=== PATIENT | male | born 1935 | race Caucasian/White ===

== ENCOUNTER → 2017-05-09 | Outpatient (CLI) | payer OTHER ==
[~2017-05-09] MED LIST: APIX1TAB3 PO; ATOR10TA82 PO; CETI10TA84 PO; CHOL100010 PO; CZR50 PO; FLUT27.5 NAE; IBUP-1105 PO; LUTE10TA PO; MULT-506 PO; OMEP10CA2 PO; TPRSR/25 PO; TRAV0.00 OP; URX/10 PO
[2017-05-09 12:25] LABS: CHOLESTEROL/HDL RATIO 1.5
== END | disposition home or self-care (01) ==
LOC: C.LAB1850 10:16
PROVIDERS: ATTEND Internal Medicine Cardiovascular Disease
DX: E78.5 Hyperlipidemia, unspecified (principal)

== ENCOUNTER → 2017-05-23 | Outpatient (CLI) | payer OTHER ==
[~2017-05-23] MED LIST changes: -ATOR10TA82 PO; +ATOR10TA88 PO
--- NOTE | 2017-05-23 08:50 | DIAGNOSTIC IMAGING REPORT ---
ULTRASOUND ABDOMEN COMPLETE CLINICAL HISTORY: Generalized abdominal pain. COMPARISON STUDY: Abdominal CT dated 06/29/2016. TECHNIQUE: Real-time, grayscale, and color flow sonography of the abdomen was performed. Images are reviewed in the transverse and longitudinal planes. FINDINGS: Liver: The liver is normal in size and demonstrates heterogeneously increased echotexture consistent with hepatic steatosis. There is no intrahepatic biliary ductal dilatation. The main portal vein is patent. Gallbladder: Small gallstones are identified. The gallbladder is otherwise normal in appearance. There is no gallbladder wall thickening or pericholecystic fluid. A sonographic Weathers's sign is reportedly absent. The common bile duct measures up to 0.3 cm in diameter. Pancreas: Visualized portions of the pancreatic head and body are normal in appearance. Spleen: The spleen is normal in size and echotexture, measuring 11.4 cm in length. Kidneys: The kidneys demonstrate cortical atrophy. There is no hydronephrosis. The right kidney measures 10.9 cm in length and the left kidney measures 10.6 cm in length. No shadowing calculi are identified. Abdominal vasculature: Visualized portions of the abdominal aorta and IVC are normal in appearance. Ascites: None. IMPRESSION: 1. No acute sonographic abnormality is identified. 2. Cholelithiasis without sonographic evidence of acute cholecystitis. 3. Hepatic steatosis. Electronically signed by: Carlos Pandya M.D. 05/23/2017 8:48 AM Dictated Date/Time: 05/23/2017 8:46 AM
== END | disposition home or self-care (01) ==
LOC: C.ULTR 08:12
PROVIDERS: ATTEND Internal Medicine Gastroenterology
DX: R10.13 Epigastric pain (principal); R19.4 Change in bowel habit; K80.20 Calculus of gallbladder without cholecystitis without obstruction; K76.0 Fatty (change of) liver, not elsewhere classified

== ENCOUNTER → 2018-07-02 | Outpatient (CLI) | payer OTHER ==
[~2018-07-02] MED LIST changes: +ATOR10TA82 PO; -ATOR10TA88 PO
[2018-07-02 12:54] LABS: BASO % 0.2 %; BASO ABS # 0.01 K/uL (0-0.2); EOS % 3.1 %; EOS ABS # 0.16 K/uL (0-0.5); HEMATOCRIT 38.7 % (42-52); HEMOGLOBIN 13.4 g/dL (14.0-18.0); LYMPH % 43.9 %; LYMPH ABS # 2.27 K/uL (1.2-3.4); MEAN CELL VOLUME 94.2 fL (80-100); MEAN CORPUSCULAR HEMOGLOBIN 32.6 pg (25-34); MEAN CORPUSCULAR HGB CONC 34.6 g/dl (32-36); MEAN PLATELET VOLUME 10.4 fL (7.4-10.4); MONO % 9.7 %; NEUT % 43.1 %; NEUT ABS # 2.23 K/uL (1.4-6.5); PLATELET COUNT 172 K/uL (130-400); RED CELL DISTRIBUTION WIDTH CV 12.8 % (11.5-14.5); RED CELL DISTRIBUTION WIDTH SD 43.7 fL (36.4-46.3); WHITE BLOOD COUNT 5.17 K/uL (4.8-10.8)
[2018-07-02 13:40] LABS: ALKALINE PHOSPHATASE 74 U/L (45-117); ALT/SGPT 47 U/L (12-78); AST/SGOT 36 U/L (15-37); BLOOD UREA NITROGEN 11 mg/dl (7-18); CALCIUM 8.6 mg/dl (8.5-10.1); CARBON DIOXIDE 28 mmol/L (21-32); CHOLESTEROL 141 mg/dl (0-200); CREATININE 0.82 mg/dl (0.60-1.40); GLUCOSE 91 mg/dl (70-99); LDL CHOLESTEROL CALCULATED 49 mg/dl; POTASSIUM 4.2 mmol/L (3.5-5.1); SODIUM 134 mmol/L (136-145); TOTAL PROTEIN 6.8 gm/dl (6.4-8.2)
== END | disposition home or self-care (01) ==
LOC: C.LABBC 09:42
PROVIDERS: ATTEND Internal Medicine
DX: I10 Essential (primary) hypertension (principal); E78.5 Hyperlipidemia, unspecified; D64.9 Anemia, unspecified; I48.0 Paroxysmal atrial fibrillation; Z79.01 Long term (current) use of anticoagulants; H35.3290 Exudative age-related macular degeneration, unspecified eye, stage unspecified

== ENCOUNTER 2019-11-04 10:07 | Inpatient (IN) ==
[2019-11-04] MEDS: SODIUM CHLORIDE 0.9% 1000ML 1,000 ML IV SCH ×3 (11:21→19:00)
[2019-11-04 11:25] LABS: Basophils # (auto) 0.01 K/uL (0-0.2); Basophils % (auto) 0.2 %; Eosinophils # (auto) 0.21 K/uL (0-0.5); Eosinophils % (auto) 4.1 %; Hematocrit (blood only) 33.4 % (42-52); Hemoglobin 12.2 g/dL (14.0-18.0); Immature Granulocytes # (auto) 0.04 K/uL (0.00-0.02); Immature Granulocytes % (auto) 0.8 %; Lymphocytes # (auto) 1.09 K/uL (1.2-3.4); Lymphocytes % (auto) 21.5 %; Mean Corpuscular Hemoglobin 34.2 pg (25-34); Mean Corpuscular Hgb Conc 36.5 g/dL (32-36); Mean Corpuscular Volume 93.6 fL (80-100); Mean Platelet Volume 8.1 fL (7.4-10.4); Monocytes # (auto) 0.64 K/uL (0.11-0.59); Monocytes % (auto) 12.6 %; Neutrophils # (auto) 3.09 K/uL (1.4-6.5); Neutrophils % (auto) 60.8 %; Platelet Count 223 K/uL (130-400); RDW Standard Deviation 44.2 fL (36.4-46.3); Red Blood Count 3.57 M/uL (4.7-6.1); White Blood Count 5.08 K/uL (4.8-10.8)
[2019-11-04 11:40] LABS: Alanine Aminotransferase 42 U/L (12-78); Albumin Level 3.5 gm/dl (3.4-5.0); Aspartate Aminotransferase 39 U/L (15-37); BUN Creatinine Ratio 20.2 (10-20); Blood Urea Nitrogen 16 mg/dl (7-18); Calcium 9.6 mg/dl (8.5-10.1); Carbon Dioxide 25 mmol/L (21-32); Chloride 89 mmol/L (98-107); Creatinine Clr Calc Pharmacy 65.9 ml/min; Est GFR (African American) 96.1; Est GFR (Non-African American) 82.9; Glucose 82 mg/dl (70-99); Lipase 114 U/L (73-393); Magnesium 1.4 mg/dl (1.8-2.4); Potassium 4.5 mmol/L (3.5-5.1); Sodium 125 mmol/L (136-145)
[2019-11-04 11:51] LABS: Albumin Globulin Ratio 1.1 (0.9-2); Alkaline Phosphatase 174 U/L (45-117); Bilirubin,Total 1.6 mg/dl (0.2-1); Globulin 3.3 gm/dl (2.5-4.0); NT Pro B Type Natriuretic Pept 892 pg/ml (0-1800); Total Protein 6.8 gm/dl (6.4-8.2); Troponin I < 0.015 ng/ml (0-0.045)
--- NOTE | 2019-11-04 12:08 | CT Scan Report ---
CT head/brain wo con CLINICAL HISTORY: Head trauma. Dizziness. COMPARISON STUDY: 05/08/2009, MRI the brain dated 07/02/2013 TECHNIQUE: Axial CT of the brain is performed from the vertex to the skull base. IV contrast was not administered for this examination. A dose lowering technique was utilized adhering to the principles of ALARA. CT DOSE: FINDINGS: No intra or extra-axial mass lesions are visualized. There is no CT evidence of acute cortical infarc tion. There is no evidence of midline shift. There is no acute hemorrhage. No calvarial fractures ar e visualized. There are patchy white matter hypodensities likely on a small vessel basis. There is no evidence of pathologic ventricular dilatation. There is right maxillary sinus mucosal thickening IMPRESSION: No acute intracranial findings Electronically signed by: Esteban So M.D. 11/04/2019 12:06 PM
--- NOTE | 2019-11-04 12:12 | CT Scan Report ---
CT cervical spine wo con CLINICAL HISTORY: 84 years-old Male presenting with trauma. TECHNIQUE: Multidetector CT of the cervical spine was performed without the use of intravenous contra st. IV contrast: None. One or more dose lowering techniques were used consistent with the principles of ALARA (as low as reasonably achievable), including automatic exposure control, mA or kV adjustment to individual patient size, and/or use of iterative reconstruction. COMPARISON: None. CT DOSE (mGy.cm): The estimated cumulative dose is 1038.08 mGy.cm. FINDINGS: Labor Supervisor topogram: Internal fixation of the right humerus. Normal cervical lordosis. Vertebral bodies maintain normal height and alignment. Multilevel intervert ebral disc height loss greatest at C3-4, C5-6, and C6-7. Disc osteophyte complexes noted to varying d egrees at every level. Overall mild posterior bony spurring. Limited evaluation of the soft tissues o f the spinal canal does not demonstrate further effacement. Mild facet arthropathy and multilevel unc overtebral hypertrophy results in very degrees of osseous neural foraminal narrowing. Advanced degene rative changes of the atlantodental articulation. No acute fracture or subluxation. Cystic change in several vertebral bodies is degenerative related. Visualized portion of the skull base intact. Lung a pices with emphysematous change. Paraspinal soft tissues remarkable for atherosclerosis and mild fatt y atrophy of the musculature. IMPRESSION: 1. No acute osseous injury of the cervical spine. 2. Multilevel degenerative changes. Electronically signed by: Ayad Lee M.D. 11/04/2019 12:11 PM
--- NOTE | 2019-11-04 12:32 | XRay Report ---
XR ribs RT min 3V w [id number] CLINICAL HISTORY: Right rib pain following trauma. COMPARISON: Chest radiograph June 29, 2016. FINDINGS: There is no pneumothorax or pleural effusion. Interstitial thickening is noted. Several le ft-sided rib fractures are likely old. There are multiple old right rib fractures as well. Note is ma de of an age-indeterminate fracture of the anterior right 10th rib. Right humeral internal fixation i s partially imaged. IMPRESSION: 1. No pneumothorax. Numerous old bilateral rib fractures. Age indeterminate minimally displaced anter ior right 10th rib fracture. 2. Interstitial thickening which may reflect mild pulmonary edema. Electronically signed by: David Carroll M.D. 11/04/2019 12:30 PM
--- NOTE | 2019-11-04 13:05 | Emergency Department Note ---
Entered by Joann Zuluaga acting as a scribe for History of Present Illness General Source: patient and family (daughter) History of Present Illness Onset (ago): week(s) (couple) Location: left and right Pain Consistency: + constant Maximum Pain Intensity: 1 Quality: + other (lethargy and weakness) Associated symptoms: + cough, + headaches (from fall), + shortness of breath and + other (+dizziness; +lightheadedness; +hypotension; +imbalanced; +right rib injury; +constipation; +shakes/tremors; ) The patient is an 84 year old male, with past medical history of atrial fibrillation, HTN, and benign localized hyperplasia of prostate with urinary obstruction, who presents to the Emergency Room with complaints of constant lethargy and weakness over the past couple weeks, per the patients daughter. She states the patient has been dizzy and lightheaded as well. The patient reports his blood pressure has been in between 85-100 recently as well. The patient also reports of feeling imbalanced, more than typical baseline. The patient reports he typically uses a cane to get around away from home, but the patient states he has been using his cane inside the home, even just to stand up recently. The patient states his imbalance has caused him to fall a couple times, and he notes he hurt his right rib cage during one of the falls. He also states he hit his head on his right forehead which has been causing him to have intermittent headaches from one of his falls. The patient states he also feels short of breath and he notes a cough. He states he has been taking MiraLAX for t he past couple months because he has been dealing with constipation. He also notes of episodes of shakes or twitches over the last couple days. The daughter reports the patient was on a super dose of steroids leading up to Thanksgiving for a rash that has healed well, and the daughter notes the patient was the opposite back then regarding his energy and appetite. She states the patient could have ran a marathon at that time. However, she notes the patients present symptoms started once the steroid taper ended. The patient states he has been dealing with low blood pressure since the summer. He states he called Dr. Tipton regarding the blood pressure who told him to cut back on his HCTZ and losartan. This states this made him feel better, but he notes his blood pressure started increasing too much after this, which caused the patient to see his PCP- Dr. Stern. He reports that, at this time, it was noted that the patient had low sodium levels. The patient reports he was told to cease taking his water pill at this point. The patient denies ever seeing a kidney specialist for his symptoms. Home Medications Home Medications Medication Instructions Recorded Confirmed Type apixaban 5 mg tablet 5 mg PO BID #180 tab 05/26/19 11/09/19 Rx cetirizine 10 mg tablet 10 mg PO DAILY tab 07/30/19 11/09/19 History cholecalciferol (vitamin D3) 25 1,000 units PO DAILY tab 07/30/19 11/09/19 History mcg (1,000 unit) tablet fluticasone propionate 50 2 sprays INTRANASAL DAILY PRN #1 gm 07/30/19 11/09/19 History mcg/actuation nasal spray,suspension multivitamin 1 tab PO DAILY tab 07/30/19 11/09/19 History omeprazole 10 mg capsule,delayed 10 mg PO BID #180 cap 07/30/19 11/09/19 History release bimatoprost 0.01 % eye drops 1 drops OP QPM 09/15/19 11/09/19 History polyvinyl alcohol 1.4 % eye drops 1 drops OP DAILY 09/15/19 11/09/19 History metoprolol succinate 50 mg 50 mg PO DAILY #90 tab 10/15/19 11/09/19 Rx tablet,extended release 24 hr atorvastatin 10 mg PO HS 11/04/19 11/09/19 History budesonide-formoterol [Symbicort] 2 puff INHALATION BID #10.2 gm 11/07/1910/25 Rx magnesium oxide 400 mg PO BID #60 tab 11/07/19 11/09/19 Rx tamsulosin 0.4 mg PO HS #30 cap 11/07/19 11/09/19 Rx tiotropium bromide [Spiriva with 18 mcg INHALATION QAM #30 puffs 11/07/19 11/09/19 Rx HandiHaler] Allergies Allergy/AdvReac Type Severity Reaction Status Date / Time ketorolac Allergy Unknown . 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 Brother , AGE 59 Cancer LUNG AND PROSTATE Brother , AGE 74 No problems noted. Unknown Heart disease Hypertension Pulmonary embolism Sister No problems noted. Social History (Reviewed 11/04/19 @ : by Joann Zuluaga) Preferred Language: [place] Communication Ability: Effective Visual Impairment: No Limitations Hearing Ability: Use of Hearing Aid Beliefs That Will Affect Care: None marital status: / Current Living Situation: Alone current occupational status: retired Feels Safe at Home: Yes Smoking Status: Never smoker Hx Alcohol Use: Yes Alcohol type: beer Alcohol Intake Frequency: Daily Hx Substance Use: No Childhood Exposure to Second-Hand Smoke: Yes Dental Care, Regularly: No Physical Activity Frequency: Does not Exercise Seatbelt Use: always Sunscreen Use: Yes Review of Systems See HPI for pertinent positives & negatives. and A total of 10 systems reviewed and were otherwise negative Physical Exam Vital Signs Vital Signs - 24 hr 11/04/19 10:21 11/04/19 12:00 Temperature 36.3 C L Temperature Source Oral Pulse Rate 84 Pulse Rate [Left Finger] 73 Respiratory Rate 20 20 Respiratory Effort / Characteristics Non-Labored Respiratory Depth Normal Respiratory Pattern Regular Blood Pressure 158/90 H Blood Pressure [Left Arm] 111/88 Blood Pressure Mean 112 Blood Pressure Mean [Left Arm] 95 Pulse Oximetry 95 96 Oxygen Delivery Method Room Air Room Air Sepsis Recent Fever Within 48 Hours No Sepsis New/Unexplained Change in Mental Status No Sepsis Action Taken by Nursing No Action Required GENERAL: alert, ill-appearing, well nourished, tremulous EYE EXAM: normal conjunctiva, PERRL and EOM's grossly intact OROPHARYNX: no exudate, no erythema, lips, buccal mucosa, and tongue normal and mucous membranes are moist NECK: supple, no nuchal rigidity, no adenopathy, non-tender LUNGS: Clear to auscultation. No wheezes, rhonchi, or rales. Normal chest wall mechanics HEART: no murmurs, S1 normal and S2 normal CHEST: Tenderness to right anterior, inferior ribs. No crepitus or ecchymosis. ABDOMEN: abdomen soft, non-tender, normo-active bowel sounds, no masses, no rebound or guarding. BACK: Back is symmetrical on inspection and there is no deformity, no midline tenderness, no CVA tenderness. SKIN: no rashes and no bruising UPPER EXTREMITIES: upper extremities are grossly normal. FROM, nml pulses b/l. LOWER EXTREMITIES: Trace pedal edema bilaterally. Normal pulses. FROM. NEURO EXAM: Normal sensorium, cranial nerves II-XII intact, normal speech, no weakness of arms, no weakness of legs. Course Course 1046: Past medical records reviewed. The patient was evaluated in room C1B. A complete history and physical exam was performed. 1310: I reevaluated the patient. The patient reports he is feeling good. 1333: I reviewed the patient's case with Dr. Arnett-[facility] Hospitalist. Dr. Arnett will evaluate the patient for further management. Consultations Consultation #1: I reviewed the patient's case with Dr. Arnett-[facility] Hospitalist. Dr. Arnett will evaluate the patient for further management. Time: 13:33 Administered Medications Discontinued Medications Acetaminophen (Tylenol) 650 mg PO Q4H PRN PRN Reason: Pain or Fever Stop: 12/04/19 14:50 Last Admin: 11/07/19 11:16 Dose: 650 mg Documented by: [id number] Admin: 11/06/19 11:43 Dose: 650 mg Documented by: [id number] Admin: 11/04/19 20:15 Dose: 650 mg Documented by: [id number] Alfuzosin HCl (Uroxatral) 10 mg PO QPM NICK Stop: 12/04/19 20:59 Last Admin: 11/05/19 21:10 Dose: 10 mg Documented by: [id number] Admin: 11/04/19 20:10 Dose: 10 mg Documented by: [id number] Apixaban (Eliquis) 5 mg PO BID NICK Stop: 12/04/19 20:59 Last Admin: 11/07/19 08:17 Dose: 5 mg Documented by: [id number] Admin: 11/06/19 20:09 Dose: 5 mg Documented by: [id number] Admin: 11/06/19 08:10 Dose: 5 mg Documented by: [id number] Admin: 11/05/19 21:12 Dose: 5 mg Documented by: [id number] Admin: 11/05/19 08:25 Dose: 5 mg Documented by: [id number] Admin: 11/04/19 20:10 Dose: 5 mg Documented by: [id number] Artificial Tears (Artificial Tears) 1 drops OP DAILY NICK Stop: 12/05/19 08:59 Last Admin: 11/07/19 08:15 Dose: 1 drops Documented by: [id number] Admin: 11/06/19 08:19 Dose: 1 drops Documented by: [id number] Admin: 11/05/19 08:29 Dose: 1 drops Documented by: [id number] Atorvastatin Calcium (Lipitor) 10 mg PO HS NICK Stop: 12/04/19 20:59 Last Admin: 11/06/19 20:09 Dose: 10 mg Documented by: [id number] Admin: 11/05/19 21:10 Dose: 10 mg Documented by: [id number] Admin: 11/04/19 20:10 Dose: 10 mg Documented by: [id number] Azithromycin (Zithromax) 500 mg PO QAM NICK Stop: 11/10/19 08:59 Last Admin: 11/07/19 08:21 Dose: 500 mg Documented by: [id number] Admin: 11/06/19 08:14 Dose: 500 mg Documented by: [id number] Bimatoprost (Lumigan 0.01%) 1 drops OPB QPM NICK Stop: 12/04/19 20:59 Last Admin: 11/06/19 20:13 Dose: 1 drops Documented by: [id number] Admin: 11/05/19 21:12 Dose: 1 drops Documented by: [id number] Admin: 11/04/19 20:11 Dose: 1 drops Documented by: [id number] Budesonide/Formoterol Fumarate (Symbicort 160mcg/4.5mcg) 2 puffs INH BID NICK Stop: 12/05/19 14:59 Last Admin: 11/07/19 08:19 Dose: 2 puffs Documented by: [id number] Admin: 11/06/19 20:13 Dose: 2 puffs Documented by: [id number] Admin: 11/06/19 08:13 Dose: 2 puffs Documented by: [id number] Admin: 11/05/19 21:11 Dose: 2 puffs Documented by: [id number] Admin: 11/05/19 16:34 Dose: 2 puffs Documented by: [id number] Cetirizine HCl (Zyrtec) 10 mg PO DAILY NICK Stop: 12/05/19 08:59 Last Admin: 11/07/19 08:21 Dose: 10 mg Documented by: [id number] Admin: 11/06/19 08:15 Dose: 10 mg Documented by: [id number] Admin: 11/05/19 08:26 Dose: 10 mg Documented by: [id number] Finasteride (Proscar) 5 mg PO DAILY NICK Stop: 12/05/19 08:59 Last Admin: 11/05/19 08:26 Dose: 5 mg Documented by: [id number] Fluticasone Propionate (Flonase) 2 sprays NA DAILY PRN PRN Reason: Nasal Congestion Stop: 12/04/19 15:11 Last Admin: 11/07/19 11:17 Dose: 2 sprays Documented by: [id number] Admin: 11/06/19 12:59 Dose: 2 sprays Documented by: [id number] Sodium Chloride (Nss 1000ml) 1,000 mls @ 250 mls/hr IV .Q4H NICK Stop: 12/04/19 10:59 Last Admin: 11/04/19 19:00 Dose: Not Given Documented by: [id number] Admin: 11/04/19 17:48 Dose: Not Given Documented by: [id number] Infusion: 11/04/19 15:02 Dose: 0 mls/hr Documented by: [id number] Admin: 11/04/19 11:21 Dose: 250 mls/hr Documented by: [id number] Magnesium Sulfate/Dextrose (Magnesium Sulfate / D5w) 1 gm in 100 mls @ 100 mls/hr IV Q1H NICK Stop: 11/04/19 14:14 Last Infusion: 11/04/19 15:03 Dose: 0 mls/hr Documented by: [id number] Admin: 11/04/19 14:00 Dose: 100 mls/hr Documented by: [id number] Infusion: 11/04/19 14:00 Dose: 0 mls/hr Documented by: [id number] Admin: 11/04/19 13:27 Dose: 100 mls/hr Documented by: [id number] Potassium Chloride/Sodium Chloride (Normal Saline W/20 Meq Kcl) 20 meq in 1,000 mls @ 50 mls/hr IV .Q20H NICK Stop: 12/04/19 16:44 Last Infusion: 11/05/19 14:42 Dose: 0 mls/hr Documented by: [id number] Admin: 11/05/19 11:16 Dose: 50 mls/hr Documented by: [id number] Infusion: 11/05/19 11:16 Dose: 50 mls/hr Documented by: [id number] Admin: 11/04/19 17:47 Dose: 50 mls/hr Documented by: [id number] Azithromycin 500 mg/ Dextrose 255 mls @ 125 mls/hr IV ONE ONE Stop: 11/05/19 10:32 Last Infusion: 11/05/19 11:05 Dose: 0 mls/hr Documented by: [id number] Admin: 11/05/19 09:02 Dose: 125 mls/hr Documented by: [id number] Ceftriaxone Sodium 2,000 mg/ (Dextrose) 70 mls @ 100 mls/hr IV DAILY NICK; Protocol Stop: 11/12/19 08:59 Last Infusion: 11/07/19 09:14 Dose: 0 mls/hr Documented by: [id number] Admin: 11/07/19 08:31 Dose: 100 mls/hr Documented by: [id number] Infusion: 11/06/19 09:15 Dose: 0 mls/hr Documented by: [id number] Admin: 11/06/19 08:33 Dose: 100 mls/hr Documented by: [id number] Infusion: 11/05/19 09:06 Dose: 0 mls/hr Documented by: [id number] Admin: 11/05/19 08:19 Dose: 100 mls/hr Documented by: [id number] Ioversol (Optiray 320 100ml) 93 ml IV ONCE PRN PRN Reason: Interaction Checking Stop: 11/08/19 17:07 Last Admin: 11/04/19 17:10 Dose: 93 ml Documented by: [id number] Lactobacillus Acidophilus (Floranex) 4 tab PO QIDM NICK Stop: 12/05/19 07:59 Last Admin: 11/07/19 11:16 Dose: 4 tab Documented by: [id number] Admin: 11/07/19 08:14 Dose: 4 tab Documented by: [id number] Admin: 11/06/19 20:10 Dose: 4 tab Documented by: [id number] Admin: 11/06/19 17:56 Dose: 4 tab Documented by: [id number] Admin: 11/06/19 11:45 Dose: 4 tab Documented by: [id number] Admin: 11/06/19 08:09 Dose: 4 tab Documented by: [id number] Admin: 11/05/19 21:09 Dose: 4 tab Documented by: [id number] Admin: 11/05/19 16:35 Dose: 4 tab Documented by: [id number] Admin: 11/05/19 11:15 Dose: 4 tab Documented by: [id number] Admin: 11/05/19 08:24 Dose: 4 tab Documented by: [id number] Lidocaine (Lidoderm 5%) 1 patch TD QAM NICK Stop: 12/04/19 16:59 Last Admin: 11/07/19 08:27 Dose: 1 patch Documented by: [id number] Admin: 11/06/19 08:24 Dose: 1 patch Documented by: [id number] Admin: 11/05/19 08:28 Dose: 1 patch Documented by: [id number] Admin: 11/04/19 17:48 Dose: 1 patch Documented by: [id number] Losartan Potassium (Cozaar) 25 mg PO DAILY NICK Stop: 12/05/19 08:59 Last Admin: 11/05/19 08:27 Dose: 25 mg Documented by: [id number] Magnesium Oxide (Mag-Ox) 400 mg PO BID NICK Stop: 12/05/19 08:59 Last Admin: 11/07/19 08:17 Dose: 400 mg Documented by: [id number] Admin: 11/06/19 20:09 Dose: 400 mg Documented by: [id number] Admin: 11/06/19 08:10 Dose: 400 mg Documented by: [id number] Admin: 11/05/19 21:11 Dose: 400 mg Documented by: [id number] Admin: 11/05/19 08:23 Dose: 400 mg Documented by: [id number] Metoprolol Succinate (Toprol Xl) 50 mg PO DAILY NICK Stop: 12/05/19 08:59 Last Admin: 11/07/19 08:20 Dose: 50 mg Documented by: [id number] Admin: 11/06/19 08:14 Dose: 50 mg Documented by: [id number] Admin: 11/05/19 08:27 Dose: 50 mg Documented by: [id number] Miscellaneous (Remove Lidoderm Patch) 1 ea N/A DAILY@2100 [facility] Stop: 12/04/19 20:59 Last Admin: 11/06/19 20:41 Dose: 1 ea Documented by: [id number] Admin: 11/05/19 21:11 Dose: 1 ea Documented by: [id number] Admin: 11/04/19 20:12 Dose: Not Given Documented by: [id number] Multivitamins (Multivitamin Tab) 1 tab PO DAILY [facility] Stop: 12/05/19 08:59 Last Admin: 11/07/19 08:17 Dose: 1 tab Documented by: [id number] Admin: 11/06/19 08:12 Dose: 1 tab Documented by: [id number] Admin: 11/05/19 08:26 Dose: 1 tab Documented by: [id number] Ondansetron HCl (Zofran) 4 mg IV Q6H PRN PRN Reason: Nausea Stop: 12/04/19 14:50 Last Admin: 11/05/19 11:15 Dose: 4 mg Documented by: [id number] Pantoprazole Sodium (Protonix) 40 mg PO BID [facility]; Protocol Stop: 12/04/19 20:59 Last Admin: 11/07/19 08:18 Dose: 40 mg Documented by: [id number] Admin: 11/06/19 20:09 Dose: 40 mg Documented by: [id number] Admin: 11/06/19 08:12 Dose: 40 mg Documented by: [id number] Admin: 11/05/19 21:09 Dose: 40 mg Documented by: [id number] Admin: 11/05/19 08:25 Dose: 40 mg Documented by: [id number] Admin: 11/04/19 20:11 Dose: 40 mg Documented by: [id number] Polyethylene Glycol (Miralax Powder Packet) 17 gm PO DAILY [facility] Stop: 12/04/19 16:59 Last Admin: 11/07/19 08:25 Dose: 17 gm Documented by: [id number] Admin: 11/06/19 08:16 Dose: 17 gm Documented by: [id number] Admin: 11/05/19 08:28 Dose: Not Given Documented by: [id number] Admin: 11/04/19 17:48 Dose: Not Given Documented by: [id number] Tamsulosin HCl (Flomax) 0.4 mg PO HS NICK Stop: 12/06/19 20:59 Last Admin: 11/06/19 20:40 Dose: 0.4 mg Documented by: [id number] Tiotropium [place] (Spiriva) 1 puffs INH QAM NICK Stop: 12/06/19 08:59 Last Admin: 11/07/19 08:18 Dose: 1 puffs Documented by: [id number] Admin: 11/06/19 08:12 Dose: 1 puffs Documented by: [id number] Tramadol HCl (Ultram) 50 mg PO Q6H PRN PRN Reason: Pain Stop: 12/04/19 14:50 Last Admin: 11/05/19 17:05 Dose: 50 mg Documented by: [id number] Vitamin D (Vitamin D3) 1,000 units PO DAILY NICK Stop: 12/05/19 08:59 Last Admin: 11/07/19 08:20 Dose: 1,000 units Documented by: [id number] Admin: 11/06/19 08:14 Dose: 1,000 units Documented by: [id number] Admin: 11/05/19 08:26 Dose: 1,000 units Documented by: [id number] Medical Decision Making Differential Diagnosis Differential diagnosis: Etiologies such as metabolic, infection, hypo/hyperglycemia, electrolyte abnormalities, cardiac sources, intracerebral event, toxicologic, neurologic, as well as others were entertained. Medical Records Attestation: I reviewed the patient's medical records. Home Medications Current Medication List: was personally reviewed by me Laboratory Data Attestation: I reviewed the patient's lab results. Result diagrams: 11/07/19 07:36 11/07/19 07:36 Lab Results 11/04/19 11/04/19 11/04/19 Range/Units 11:07 11:07 11:07 WBC 5.08 (4.8-10.8) K/uL RBC 3.57 L (4.7-6.1) M/uL Hgb 12.2 L (14.0-18.0) g/dL Hct 33.4 L (42-52) % MCV 93.6 (80-100) fL MCH 34.2 H (25-34) pg MCHC 36.5 H (32-36) g/dL RDW Std Deviation 44.2 (36.4-46.3) fL RDW Coeff of Henry 13.0 (11.5-14.5) % Plt Count 223 (130-400) K/uL MPV 8.1 (7.4-10.4) fL Immature Gran % (Auto) 0.8 % Neut % (Auto) 60.8 % Lymph % (Auto) 21.5 % [place] % (Auto) 12.6 % Eos % (Auto) 4.1 % Baso % (Auto) 0.2 % Immature Gran # (Auto) 0.04 H (0.00-0.02) K/uL Neut # (Auto) 3.09 (1.4-6.5) K/uL Lymph # (Auto) 1.09 L (1.2-3.4) K/uL [place]fe # (Auto) 0.64 H (0.11-0.59) K/uL Eos # (Auto) 0.21 (0-0.5) K/uL Baso # (Auto) 0.01 (0-0.2) K/uL PT 12.8 H (9.0-12.0) Seconds INR 1.3 H (0.9-1.1) Sodium 125 L (136-145) mmol/L Potassium 4.5 (3.5-5.1) mmol/L Chloride 89 L (98-107) mmol/L Carbon Dioxide 25 (21-32) mmol/L Anion Gap 11.0 (3-11) BUN 16 (7-18) mg/dl Creatinine 0.78 (0.6-1.4) mg/dl Est Cr Clr Drug Dosing 65.9 ml/min Est GFR ( Amer) 96.1 Est GFR (Non-Af Amer) 82.9 BUN/Creatinine Ratio 20.2 H (10-20) Glucose 82 (70-99) mg/dl Calcium 9.6 (8.5-10.1) mg/dl Magnesium 1.4 L (1.8-2.4) mg/dl Total Bilirubin 1.6 H (0.2-1) mg/dl AST 39 H (15-37) U/L ALT 42 (12-78) U/L Alkaline Phosphatase 174 H (45-117) U/L Troponin I < 0.015 (0-0.045) ng/ml NT-Pro-B Natriuret Pep 892 (0-1800) pg/ml Total Protein 6.8 (6.4-8.2) gm/dl Albumin 3.5 (3.4-5.0) gm/dl Globulin 3.3 (2.5-4.0) gm/dl Albumin/Globulin Ratio 1.1 (0.9-2) Lipase 114 (73-393) U/L TSH 1.420 (0.300-4.500) uIu/ml Imaging Data Radiologist's Impression: Radiology results as stated below per my review and the radiologist's interpretation: XR ribs RT min 3V w [id number] CLINICAL HISTORY: Right rib pain following trauma. COMPARISON: Chest radiograph June 29, 2016. FINDINGS: There is no pneumothorax or pleural effusion. Interstitial thickening is noted. Several left-sided rib fractures are likely old. There are multiple old right rib fractures as well. Note is made of an age-indeterminate fracture of the anterior right 10th rib. Right humeral internal fixation is partially imaged. IMPRESSION: 1. No pneumothorax. Numerous old bilateral rib fractures. Age indeterminate minimally displaced anterior right 10th rib fracture. 2. Interstitial thickening which may reflect mild pulmonary edema. Electronically signed by: David Carroll M.D. 11/04/2019 12:[address] cervical spine wo con CLINICAL HISTORY: 84 years-old Male presenting with trauma. TECHNIQUE: Multidetector CT of the cervical spine was performed without the use of intravenous contrast. IV contrast: None. One or more dose lowering techniques were used consistent with the principles of ALARA (as low as reasonably achievable), including automatic exposure control, mA or kV adjustment to individual patient size, and/or use of iterative reconstruction. COMPARISON: None. CT DOSE (mGy.cm): The estimated cumulative dose is 1038.08 mGy.cm. FINDINGS: [employer] topogram: Internal fixation of the right humerus. Normal cervical lordosis. Vertebral bodies maintain normal height and alignment. Multilevel intervertebral disc height loss greatest at C3-4, C5-6, and C6-7. Disc osteophyte complexes noted to varying degrees at every level. Overall mild posterior bony spurring. Limited evaluation of the soft tissues of the spinal canal does not demonstrate further effacement. Mild facet arthropathy and multilevel uncovertebral hypertrophy results in very degrees of osseous neural foraminal narrowing. Advanced degenerative changes of the atlantodental articulation. No acute fracture or subluxation. Cystic change in several vertebral bodies is degenerative related. Visualized portion of the skull base intact. Lung apices with emphysematous change. Paraspinal soft tissues remarkable for atherosclerosis and mild fatty atrophy of the musculature. IMPRESSION: 1. No acute osseous injury of the cervical spine. 2. Multilevel degenerative changes. Electronically signed by: Ayad Lee M.D. 11/04/2019 12:[address] head/brain wo con CLINICAL HISTORY: Head trauma. Dizziness. COMPARISON STUDY: 05/08/2009, MRI the brain dated 07/02/2013 TECHNIQUE: Axial CT of the brain is performed from the vertex to the skull base. IV contrast was not administered for this examination. A dose lowering technique was utilized adhering to the principles of ALARA. CT DOSE: FINDINGS: No intra or extra-axial mass lesions are visualized. There is no CT evidence of acute cortical infarction. There is no evidence of midline shift. There is no acute hemorrhage. No calvarial fractures are visualized. There are patchy white matter hypodensities likely on a small vessel basis. There is no evidence of pathologic ventricular dilatation. There is right maxillary sinus mucosal thickening IMPRESSION: No acute intracranial findings Electronically signed by: Esteban So M.D. 11/04/2019 12:06 PM ECG Data Attestation: I personally reviewed and interpreted this ECG as follows: Indication: + weakness Rate (beats per minute): 89 Rhythm: + atrial fibrillation ECG Intervals/blocks: + Normal QRS and + Normal QT-c ECG [place]: + Normal ECG ST segments: no ST depression and no ST elevation ECG Findings: + Q waves (in V2 and V3), + PVCs and + Other (Baseline artifact ) Blood Pressure Blood Pressure Findings: Elevated blood pressure Blood Pressure Disposition: elevated BP felt to be situational MDM Narrative Pt with worsening weakness/fatigue, poor appetite over the last several weeks which I feel is likely from his hyponatremia. Hypomag also noted and repleted here. No acute infectious etiology noted. No renal failure. Discussed possible ddx with pt and he verbalized understanding. I feel pt best served with additional inpatient evaluation/mgmt and he was in agreement with plan. No evidence of neurologic abnormality. No evidence of acute cardiac etiology. Mild anemia noted, however stable compared to baseline. I do not suspect other acute traumatic injury despite fall. Discharge Plan Visit Data *Final* Discharge Date/Time: 11/04/19 15:38 Chief Complaint: Hypotension Stated Complaint: TROUBLE WALKING, BALANCE, FELL TWICE, HYPOTENSION ED Provider: Cathi Saravia Discharge Problem: General weakness, Dizziness, Acute hyponatremia, Hypomagnesemia, Fall, Closed head injury Patient Disposition: Admitted As Inpatient Condition: Good Discharge Instructions Interventions: ED Discharge Assessment Last Done: 11/04/19 15:38 Discharge Problem: Fall Qualifiers: Encounter type: initial encounter Qualified Code(s): W19.XXXA - Unspecified fall, initial encounter Closed head injury Qualifiers: Encounter type: initial encounter Qualified Code(s): S09.90XA - Unspecified injury of head, initial encounter The scribe's documentation has been prepared under my direction and personally reviewed by me in its entirety. I confirm that the note above accurately reflects all work, treatment, procedures, and medical decision making performed by me.
[2019-11-04] MEDS: MAGNESIUM SULFATE / D5W 1 GM/100 ML BAG IV SCH ×2 (13:27→14:00)
--- NOTE | 2019-11-04 14:35 | History & Physical Report ---
Date of Service November 04, 2019 Assessment & Plan (1) General weakness: Severe generalized weakness, progressive Dizziness, does not seem to be vertigo as per patient Imbalance and multiple falls Subacute hyponatremia Right 10th rib fracture Admit to telemetry Giving the rapidly progressive nature of the above-mentioned complaint, I doubt that it is solely related to his hyponatremia having that the hyponatremia has been stable for the last 3 months. Nevertheless it could be secondary to an associated condition with the hyponatremia, Differential diagnosis of hyponatremia in his setting can be broad including hypothyroidism, adrenal insufficiency, congestive heart failure, advanced liver disease, SIADH, excessive free water intake, decreased sodium intake, etc. Work-up for hyponatremia and generalized weakness will include, TSH, cortisol level(especially in the setting of described improvement when he was on steroids), serum osmolarity, urine osmolarity, urine electrolytes, imaging of the liver to rule out cirrhosis, 2D echo to the heart rule out underlying CHF especially in the setting of exertional shortness of breath, NSS IV fluid hydration, Fluid restriction to 1200 cc/day Follow-up sodium level every 6 hours, avoid rapid correction of sodium level by more than average of 0.5 mmol/hour If above measures fail, consult manager reporting We will obtain orthostatic blood pressures Physical therapy/Occupational Therapy for balance and strength Continue Eliquis for DVT prophylaxis and A. fib Pain management with Ultram, Tylenol and Lidoderm patch, patient is in Eliquis cannot take nonsteroidal anti-inflammatory drugs, Further recommendation will follow (2) Fall: As above (3) Dizziness: As above CT head reviewed and was within normal limits (4) Acute hyponatremia: As above (5) Hypomagnesemia: Replaced, will recheck in a.m. (6) Acid reflux: Chronic blood loss anemia, hemoglobin is 12.2, trending down from 13.8 on July/2019 Check occult blood in stool Hold oral Protonix 20 mg p.o. daily, start Protonix 40 mg IV daily Since seems hemoglobin remains above 11 we will try to treat conservatively with Protonix IV, will not stop Eliquis at this point but will monitor hemoglobin level daily. (7) Benign localized hyperplasia of prostate with urinary obstruction: Continue finasteride and alfuzosin (8) Rash and nonspecific skin eruption: Patient also has mild elevation in total bilirubin, alk phos and AST, combined with the widespread unexplained rash and the generalized significant weakness and weight loss will obtain CT scan chest abdomen pelvis rule out any newly diagnosed cancer. Will obtain sed rate and CRP (9) Glaucoma: Continue his eyedrops (10) Paroxysmal atrial fibrillation: Continue beta-bree for rate control, Eliquis for anticoagulation (11) Exertional shortness of breath: Obtain CT chest and 2D echo History of Present Illness Chief Complaint: Generalized weakness Primary Care Provider: Ayad Lozano MD 84 years old man with past medical history of atrial fibrillation on Eliquis, essential hypertension, BPH with urinary obstruction, glaucoma, GERD, dys lipidemia and chronic arthritis presented to the ED with generalized weakness, dizziness and multiple falls. Patient stated that he does have history of benign positional vertigo but this dizziness he is having now seems to be different. It seems to be more like weakness in his lower extremities and overall body. He was diagnosed with hyponatremia around June 2019 at that time he was taking of hydrochlorothiazide which did not help with the hyponatremia. Then around September 2019 he developed widespread macular rash all over his body, tack coverer gave him a tapering dose of steroids for about 3 to 4 weeks and topical steroids. While he was taking the steroids his arthritis improved and his overall health improved. After that he started to decline significantly and had multiple falls at home last was about 3 days prior to admission. On urologist added Finasteride 5 mg p.o. daily to his usual regimen all of alfuzosin 10 mg daily. And around that time his losartan was decreased from 50 mg p.o. daily to 25 mg p.o. daily due to low blood pressure, where his systolic blood pressure was between 90 -100. He reported having last 2 bowel movements were black tarry stool. Has been having constipation lately and started taking MiraLAX. Also among his most prominent complaint is severe exertional progressive dyspnea that seems to be new. Denies any chest pain, denies any focal weakness, denies any burning sensation in the urine or blood. Allergies Allergy/AdvReac Type Severity Reaction Status Date / Time ketorolac Allergy Unknown . Verified 11/04/19 12:08 Penicillins Allergy Unknown UNKNOWN Verified 11/04/19 12:08 gabapentin Allergy Verified 11/04/19 12:08 Dust Mite Extract Allergy Unknown seasonal Uncoded 11/04/19 12:08 type allergies Home Medications Home Medications Medication Instructions Recorded Confirmed Type apixaban 5 mg tablet 5 mg PO BID #180 tab 05/26/19 11/04/19 Rx cetirizine 10 mg tablet 10 mg PO DAILY tab 07/30/19 11/04/19 History cholecalciferol (vitamin D3) 25 1,000 units PO DAILY tab 07/30/19 11/04/19 History mcg (1,000 unit) tablet fluticasone propionate 50 2 sprays INTRANASAL DAILY PRN #1 gm 07/30/19 11/04/19 History mcg/actuation nasal spray,suspension multivitamin 1 tab PO DAILY tab 07/30/19 11/04/19 History omeprazole 10 mg capsule,delayed 10 mg PO BID #180 cap 07/30/19 11/04/19 History release losartan 25 mg tablet 25 mg PO DAILY #30 tab 09/01/19 11/04/19 Rx bimatoprost 0.01 % eye drops 1 drops OP QPM 09/15/19 11/04/19 History polyvinyl alcohol 1.4 % eye drops 1 drops OP DAILY 09/15/19 11/04/19 History finasteride 5 mg tablet 5 mg PO DAILY #90 tab 10/14/19 11/04/19 Rx metoprolol succinate 50 mg 50 mg PO DAILY #90 tab 10/15/19 11/04/19 Rx tablet,extended release 24 hr alfuzosin 10 mg PO QPM 11/04/19 11/04/19 History atorvastatin 10 mg PO HS 11/04/19 11/04/19 History Past Med/Surg History Medical History Anemia (Chronic) Anticoagulant long-term use (Chronic) Congenital nystagmus (Chronic) Factor V Leiden mutation (Chronic) Gait disturbance, post-stroke (Chronic) Hyperlipidemia (Chronic) Hypertension (Chronic) 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 Brother , AGE 59 Cancer LUNG AND PROSTATE Brother , AGE 74 No problems noted. Unknown Heart disease Hypertension Pulmonary embolism Sister No problems noted. Social History Preferred Language: Hebrew Communication Ability: Effective Visual Impairment: No Limitations Hearing Ability: Use of Hearing Aid marital status: / Current Living Situation: Alone current occupational status: retired Feels Safe at Home: Yes Smoking Status: Never smoker Hx Alcohol Use: Yes Alcohol type: beer Alcohol Intake Frequency: Daily Hx Substance Use: No Childhood Exposure to Second-Hand Smoke: Yes Dental Care, Regularly: No Physical Activity Frequency: Does not Exercise Seatbelt Use: always Sunscreen Use: Yes Review of Systems Review of Systems: Review of system Constitutional: No fever or chills but severe generalized weakness and fatigue Eyes: Baseline severe decrease in vision due to glaucoma ENT: no hearing loss / no epistaxis /no swallowing problems Respiratory: no cough / no wheezing /significant exertional shortness of breath Cardiovascular: no Chest pain / no lower extremity edema / no palpitation Abdomen: no pain / no nausea / no vomiting /positive for constipation and black tarry stool Musculoskeletal: Arthritis and joint pains Genitourinary: no dysuria / no incontinence / no urinary retention Neurologic: no focal weakness / no numbness/tingling / no ataxia Psychiatric: no depression symptoms / no anxiety / no insomnia Endocrine: no excessive thirst / no excessive urination Hematologic: no abnormal bleeding / no bruising / no LN swelling Skin: Widespread macular skin rash Physical Exam Physical Exam: Physical examination General frail elderly man, appears to be very weak HEENT: Left pupil is dilated 4 mm, right pupil is normal, patient said that he had pupillary dilation in left eye this morning with the metal checker Neck: Supple /no swelling /central trach Heart: S1/S2 irregular irregularity/no gallop /no rub /2/6 murmur Lungs: Decreased air entry bilaterally, poor inspiratory effort but no rales/no wheezing/no use of accessory muscles of respiration Abdomen: Soft/nontender/no guarding/no rebound/no organomegaly/no pulsatile mass Musculoskeletal: No swelling/no edema/no tenderness/normal range of motion Neuro exam: Awake alert oriented 3/cranial nerves II through XII appear to be intact/sensation intact/moves all extremities/no abnormal movements Psychiatric evaluation: No depressed mood/normal affect Skin: Widespread macular rash on face, chest, back and all extremities Extremity: Normal pulse/no pitting edema/no clubbing or cyanosis Results & Data Vital Signs (Past 12 Hours) Vital Signs Temp Pulse Pulse Resp BP BP Pulse Ox 11/04/19 12:00 73 20 111/88 96 11/04/19 10:21 36.3 C L 84 20 158/90 H 95 Code Status & VTE Plan Code Status 35 minutes total time spent is greater than 50% in coordination of care (as documented) at patient's floor/unit and/or counseling patient/family discussion of care with nursing staff PG Care Time/CCT Total # of Minutes Spent Total Time Spent with Patient: Total time spent is greater than 50% in coordination of care (as documented) at patient's floor/unit and/or counseling patient: (1) Fall Encounter type: initial encounter Qualified Code(s): W19.XXXA - Unspecified fall, initial encounter
[2019-11-04] MEDS ORDERED: ONDANSETRON INJ 2 MG/ML 2 ML VIAL IV PRN (14:51)
[2019-11-04] MEDS ORDERED: ZOLPIDEM TARTRATE 5 MG TAB PO PRN (14:51)
[2019-11-04] MEDS ORDERED: MAGNESIUM HYDROXIDE SUSP 30 ML UDC PO PRN (14:51)
[2019-11-04] MEDS ORDERED: TRAMADOL HCL 50 MG TABLET PO PRN (14:51)
[2019-11-04] MEDS ORDERED: ALUMINUM/MAGNESIUM SUSP 30 ML UDC PO PRN (14:51)
[2019-11-04] MEDS ORDERED: IOVERSOL 100ml IV PRN (17:08)
[2019-11-04 17:16] LABS: INR 1.3 (0.9-1.1); Prothrombin Time 12.8 Seconds (9.0-12.0)
[2019-11-04 17:18] LABS: BUN Creatinine Ratio 17.3 (10-20); Calcium 8.7 mg/dl (8.5-10.1); Creatinine Clr Calc Pharmacy 70.4 ml/min; Est GFR (African American) 98.7; Est GFR (Non-African American) 85.2; Potassium 3.8 mmol/L (3.5-5.1)
[2019-11-04 17:29] LABS: Thyroid Stimulating Hormone 1.29 uIu/ml (0.300-4.500)
--- NOTE | 2019-11-04 17:46 | CT Scan Report ---
CHEST CT WITH CONTRAST, ABDOMEN AND PELVIS CT WITH ORAL AND INTRAVENOUS CONTRAST CT DOSE: 763.36 mGy.cm HISTORY: generalized weakness, sob, cough, r/o cancer TECHNIQUE: Multiaxial CT images of the chest , abdomen, and pelvis were performed following the intra venous administration of contrast. Oral contrast was also administered for the abdomen and pelvis CT. A dose lowering technique was utilized adhering to the principles of ALARA. COMPARISON: Chest CT 07/21/2009. Abdomen and pelvis CT 06/29/2016. FINDINGS: Chest CT: No pneumothorax. Trace bilateral pleural effusions. Moderate emphysema. A few bibasilar oni ear densities favor subsegmental atelectasis. Patchy peripheral groundglass densities within the righ t upper lobe anteriorly and a focal groundglass density within the right lower lobe posteriorly. No s uspicious lytic are blastic osseous lesions. There are healing left eighth through 11th rib fractures . Severe compression deformity at T8 and mild superior endplate compression deformities at T12 and L1 . These appear to be subacute to chronic given the endplate sclerosis. Normal esophagus. Subcentimete r mediastinal hilar lymph nodes do not meet CT criteria for pathologic involvement. Abdomen/pelvis CT: No pneumoperitoneum. No pneumatosis. The liver, spleen, adrenal glands, pancreas, and kidneys are unremarkable. No hydronephrosis. A few punctate gallstones are noted. No gallbladder wall thickening. No retroperitoneal lymphadenopathy. Calcified plaque within a mildly ectatic abdomin al aorta measuring up to 2.9 cm in diameter. The bladder is within normal limits. Tiny fat-containing bilateral inguinal hernias. Colonic diverticulosis. No evidence for diverticulitis. No bowel wall th ickening or obstruction. Normal appendix. IMPRESSION: 1. Patchy small peripheral groundglass densities within the right upper lobe anteriorly and a focal g roundglass density within the right lower lobe posteriorly. This represent a pneumonia. [address] follow-up recommended to ensure resolution. 2. Trace bilateral pleural effusions.. 3. Healing left lower rib fractures and healing T8, T12, and L1 compression fractures. No acute fract ures. 4. Cholelithiasis. No gallbladder wall thickening. 5. No bowel wall thickening or obstruction. Electronically signed by: Waldo Fagan M.D. 11/04/2019 5:44 PM
[2019-11-04] MEDS: NSS + 20MEQ KCL 20 MEQ/1,000 ML BAG IV SCH (17:47)
[2019-11-04] MEDS: POLYETHYLENE (MIRALAX) 17 GM PACK PO SCH (17:48)
[2019-11-04] MEDS: LIDOCAINE 5% 1 PATCH TD SCH (17:48)
[2019-11-04] MEDS: APIXABAN 5 MG TABLET PO SCH (20:10)
[2019-11-04] MEDS: ATORVASTATIN 10 MG TAB PO SCH (20:10)
[2019-11-04] MEDS: ALFUZOSIN HCL 10 MG TAB PO SCH (20:10)
[2019-11-04] MEDS: BIMATOPROST 0.01% OP SOLN 2.5 ML BTL OPB SCH (20:11)
[2019-11-04] MEDS: PANTOprazole 40 MG TAB PO SCH (20:11)
[2019-11-04] MEDS: ACETAMINOPHEN 325 MG TAB PO PRN (20:15)
[2019-11-05 01:15] LABS: BUN Creatinine Ratio 18.9 (10-20); Calcium 8.3 mg/dl (8.5-10.1); Creatinine Clr Calc Pharmacy 72.4 ml/min; Est GFR (African American) 99.9; Est GFR (Non-African American) 86.2; Potassium 4.1 mmol/L (3.5-5.1)
[2019-11-05 06:06] LABS: Appearance Urine Clear (Clear); Bilirubin Urine Negative (Negative); Blood Urine Negative (Negative); Color Urine Yellow; Glucose Urine UA Negative (Negative); Ketones Urine Trace (Negative); Leukocyte Esterase Urine Negative (Negative); Nitrite Urine Negative (Negative); Protein Urine Negative (Negative); Specific Gravity Urine 1.023 (1.000-1.030); Urobilinogen Urine Negative (Negative)
[2019-11-05 06:09] LABS: Hematocrit (blood only) 29.8 % (42-52); Hemoglobin 10.9 g/dL (14.0-18.0); Mean Corpuscular Hemoglobin 34.1 pg (25-34); Mean Corpuscular Hgb Conc 36.6 g/dL (32-36); Mean Corpuscular Volume 93.1 fL (80-100); Mean Platelet Volume 7.8 fL (7.4-10.4); Platelet Count 195 K/uL (130-400); RDW Coefficient of Variation 13.1 % (11.5-14.5); RDW Standard Deviation 44.4 fL (36.4-46.3); White Blood Count 4.26 K/uL (4.8-10.8)
[2019-11-05 06:41] LABS: BUN Creatinine Ratio 16.3 (10-20); Creatinine Clr Calc Pharmacy 68.5 ml/min; Est GFR (African American) 97.6; Est GFR (Non-African American) 84.2; Magnesium 1.7 mg/dl (1.8-2.4); Potassium 4.1 mmol/L (3.5-5.1)
[2019-11-05] MEDS: cefTRIAXone SODIUM 2,000 MG in DEXTROSE 5% 50 ML IV SCH (08:19)
[2019-11-05] MEDS: MAGNESIUM OXIDE 400 MG TAB PO SCH ×2 (08:23→21:11)
[2019-11-05] MEDS: LACTOBACILLUS ACIDOPHILUS (FLORANEX) TAB PO SCH ×4 (08:24→21:09)
[2019-11-05] MEDS: PANTOprazole 40 MG TAB PO SCH ×2 (08:25→21:09)
[2019-11-05] MEDS: APIXABAN 5 MG TABLET PO SCH ×2 (08:25→21:12)
[2019-11-05] MEDS: CETIRIZINE HCL 10 MG TABLET PO SCH (08:26)
[2019-11-05] MEDS: MULTIVITAMIN TAB PO SCH (08:26)
[2019-11-05] MEDS: CHOLECALCIFEROL 1,000 UNITS TAB PO SCH (08:26)
[2019-11-05] MEDS: METOPROLOL SUCC 50MG EXT REL TAB PO SCH (08:27)
[2019-11-05] MEDS: LIDOCAINE 5% 1 PATCH TD SCH (08:28)
[2019-11-05] MEDS: POLYETHYLENE (MIRALAX) 17 GM PACK PO SCH (08:28)
[2019-11-05] MEDS: ARTIFICIAL TEARS OP SCH (08:29)
[2019-11-05] MEDS ORDERED: AZITHROMYCIN 500 MG in DEXTROSE 5% 250 ML IV ONE (08:30)
[2019-11-05] MEDS ORDERED: LOSARTAN POTASSIUM 25 MG TAB PO SCH (09:00)
[2019-11-05] MEDS ORDERED: FINASTERIDE 5 MG TAB PO SCH (09:00)
[2019-11-05] MEDS: NSS + 20MEQ KCL 20 MEQ/1,000 ML BAG IV SCH (11:16)
--- NOTE | 2019-11-05 11:57 | Hospitalist Progress Note ---
Date of Service November 05, 2019 Assessment & Plan (1) Community acquired bacterial pneumonia: Noted on CT. Rx ceftriaxone and azithromycin started 11/[address] in 3 months to check for resolution (2) Fall: Patient describes a general weakness which I suspect has been recently exacerbated by pneumonia and hypotension (exacerbated by recent introduction of finasteride). I am unclear regarding the improvement he had with steroids rec ently but possibly helped with his undiagnosed COPD (suspected from CT). Chronic hyponatremia likely not helping but less likely caused acute deterioration over last 2 weeks (3) General weakness: Suspect acute deterioration over last 2 weeks due to community acquired pneumonia and finasteride causing hypotension. He has multiple concerning findings concerning for malignancy however including trending up LFTs, loss of appetite and taste, SIADH, change in bowels, change in urine. (4) Exertional shortness of breath: Acute on chronic. Lung appearance on CT of moderate emphysema for which he has never been on any treatment. Interestingly he does not appear to be in acute exacerbation however despite current appearance of pneumonia. If symptoms persistent despite treatment for PNA and COPD would consider cardiac stress test. (5) Emphysema lung: Start symbicort and Spiriva to see if symptoms improve. (6) Dizziness: His reference to vertigo is a perfect story for orthostatic hypotension. Recommended he stops taking dramamine every day as likely making his balance worse. Likely acutely exacerbated by finasteride and pneumonia in last 2 weeks but will also stop losartan as it has been going on for approximately 2 years. (7) Acute hyponatremia: Serum osm 253, Na 122, Urine osm 400, Na 86 (although taken 12 hours apart and serum Na 125 at time of urine Na) Diff Diag: hypo/euvolemic on exam, hypotonic hyponatremia without renal failure / diuretic use. 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 NSS stopped and continue on fluid restriction and monitor for now. Given chronicity suspect this is not just due to current pneumonia and concerning bowel changes for colon malignancy will need to be worked up in the near future after he gets over acute illness. CEA added to morning labs. Random cortisol 22.41 - appears appropriate and no hyperkalemia to suggest adrenal insufficiency, however will also get AM cortisol. TSH 1.29 (8) Hypomagnesemia: Start on Mg Ox 400mg BID and trend daily while admitted. (9) Acid reflux: FOB negative despite patient description of melanic stools. Continue pantoprazole PO 40mg BID Suspect nausea in AM he had been getting related to this. Will continue to monitor for now. (10) Benign localized hyperplasia of prostate with urinary obstruction: Stop finasteride as patient felt dizzy on this and now refusing to take it anyway. Repeat PSA given multiple symptoms concerning for malignancy. Continue alfuzosin. PVR unremarkable. (11) Rash and nonspecific skin eruption: Will request notes from Dr Faria's office to see if biopsy was taken and what rash was felt to be due to. Concerning for malignancy. Will avoid indiscriminate steroid use however despite improvement on this. (12) Glaucoma: Continue his eyedrops (13) Paroxysmal atrial fibrillation: Suspect this is actually persistent. No prior cardiac stents or bypass. Continue beta-bree for rate control, Eliquis for anticoagulation. (14) Compression fracture: T8, T12 and L1. Subacute/chronic. No associated pain with these. No suspicious osteolytic or osteoblastic lesions (15) Rib fractures: Healing 8th - 11th rib fractures. Suspect from prior fall. 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 Suspect due to peripheral neuropathy as below. (17) Peripheral neuropathy: Unclear etiology but suspect contributory towards falls. Apparently worked up by neurology and tried gabapentin which made his balance much worse. Will get B12 level here. Not acute reason for presentation therefore recommend repeating outpatient workup if warranted. (18) Ambulatory dysfunction: Suspect multifactorial with deconditioning, sensory ataxia, poor visual acuity (in childhood and now with glaucoma). Possible spinal stenosis although noting mentioned on non-dedicated imaging of CT A/P, lung and c-spine. Plan to review. (19) Discharge planning issues: PT/OT Subjective Patient admitted due to generalized weakness and falls. Patient seen with daughter and they appear to have two timelines for events. Firstly he appears to have a progressive decline especially with shortness of breath on exertion over the last year. In addition the last 2 weeks he has had a much faster decline and notes generalized weakness, loss of balance bilaterally. Only new medication he started was finasteride a few weeks ago and his symptoms may be correlated to starting this. He notes being put on steroids for a rash under Dr Faria but unknown exact diagnosis of this, he felt better after this tapering steroid course for approximately a month. He has a number of other symptoms of various duration: GERD - omeprazole since 1998, wakes up with nausea daily but otherwise denies heartburn Sensory ataxia / peripheral neuropathy - Difficulty lifting up legs. Under Dr Motta. Unknown diagnosis of what caused his peripheral neuropathy. Dysuria - end of urination. [place] finasteride recently prescribed making him go more often but no improvement in flow. Thinks it made his dysuria was worse. Change of bowel movements - started 3 months ago. Now on Miralax once every other day. Last colonoscopy - 2012, history of lots of polyps. Under Dr Alfaro - no plans on repeating colonoscopy however last seen > 1 year ago. His last 2 bowel movements have been completely black, tar like, yesterday had diarrhea all day. "Vertigo" - diagnosed 12 years ago, episode while lying down with associated nausea. Currently - takes dramamine every other day but actually more lightheadedness and feeling like he is going to pass out when walking or standing up. Despite taking dramamine this does not help his symptoms. He never gets his current dizzyiness while lying down. When wake up feel nauseated. Worsening neck pain - feels he is getting more of stooped posture. Nausea in the morning - chewing peptobismol helps. Change in taste - over the last 3 months, better with steroids. Smoking Hx - 30 pack-years Review of Systems Review of Systems: All systems reviewed & are unremarkable except as noted in HPI & below Ear, Nose, Mouth, Throat: + nasal discharge (constant running, chronic) Respiratory: + cough (worse at night) and + dyspnea on exertion; no hemoptysis and no wheezing Gastrointestinal: + nausea (consistently in AM) Physical Exam Constitutional: well developed; + not well nourished and no acute distress Eyes: PERRL, conjunctivae normal, anicteric sclerae ENMT: external ear and nose normal, oropharynx normal Neck: trachea midline Respiratory: normal respiratory effort, lungs clear to auscultation Cardiovascular: RRR, no murmur, no edema Gastrointestinal (Abdomen): normal bowel sounds, soft, nontender, no hepatosplenomegaly Musculoskeletal: no cyanosis or clubbing, extremities motor strength 5/5 Skin: erythematous macular rash on arms Neurologic: moves all extremities (generalized weakness) and awake; no focal motor deficits and not confused Speech / Cognition: normal speech Motor/Sensory: + sensory deficit (mild peripheral neuropathy distal to ankles R > L); no tremor and no pronator drift Psychiatric: A+Ox3, euthymic affect Lymphatic: no cervical or axillary lymphadenopathy Results & Data Vital Signs (Past 12 Hours) Vital Signs Temp Pulse Pulse Resp BP BP Pulse Ox 11/05/19 10:56 37.1 C 82 20 105/62 97 11/05/19 07:34 37.2 C 91 H 18 130/76 93 11/05/19 04:19 36.7 C 75 19 99/60 L 93 11/05/19 00:13 86 11/04/19 23:52 37.0 C 83 18 120/61 92 PG Care Time/CCT Total # of Minutes Spent Total Time Spent with Patient: Total time spent is greater than 50% in coordination of care (as documented) at patient's floor/unit and/or counseling patient: (1) Rib fractures Encounter type: initial encounter Fracture type: closed Laterality: left Rib fracture type: multiple ribs Qualified Code(s): S22.42XA - Multiple fractures of ribs, left side, initial encounter for closed fracture (2) Peripheral neuropathy Peripheral neuropathy type: polyneuropathy, unspecified Qualified Code(s): G62.9 - Polyneuropathy, unspecified (3) Emphysema lung Emphysema type: panlobular Qualified Code(s): J43.1 - Panlobular emphysema (4) Fall Encounter type: initial encounter Qualified Code(s): W19.XXXA - Unspecified fall, initial encounter
[2019-11-05 13:24] LABS: BUN Creatinine Ratio 16.6 (10-20); Calcium 8.1 mg/dl (8.5-10.1); Creatinine Clr Calc Pharmacy 70.4 ml/min; Est GFR (African American) 98.7; Est GFR (Non-African American) 85.2; Potassium 4.4 mmol/L (3.5-5.1)
[2019-11-05] MEDS: BUDESONIDE/FORMOTEROL FUMARATE 160/4.5 60 PUFFS/INHALER INH SCH ×2 (16:34→21:11)
[2019-11-05 18:29] LABS: BUN Creatinine Ratio 12.6 (10-20); Calcium 8.1 mg/dl (8.5-10.1); Creatinine Clr Calc Pharmacy 59.8 ml/min; Est GFR (African American) 92.3; Est GFR (Non-African American) 79.6; Potassium 4.6 mmol/L (3.5-5.1)
[2019-11-05] MEDS: ATORVASTATIN 10 MG TAB PO SCH (21:10)
[2019-11-05] MEDS: ALFUZOSIN HCL 10 MG TAB PO SCH (21:10)
[2019-11-05] MEDS: BIMATOPROST 0.01% OP SOLN 2.5 ML BTL OPB SCH (21:12)
[2019-11-06] MEDS: LACTOBACILLUS ACIDOPHILUS (FLORANEX) TAB PO SCH ×4 (08:09→20:10)
[2019-11-06] MEDS: MAGNESIUM OXIDE 400 MG TAB PO SCH ×2 (08:10→20:09)
[2019-11-06] MEDS: APIXABAN 5 MG TABLET PO SCH ×2 (08:10→20:09)
[2019-11-06] MEDS: PANTOprazole 40 MG TAB PO SCH ×2 (08:12→20:09)
[2019-11-06] MEDS: MULTIVITAMIN TAB PO SCH (08:12)
[2019-11-06] MEDS: TIOTROPIUM BROMIDE 5 PUFF/90 MCG INH INH SCH (08:12)
[2019-11-06] MEDS: BUDESONIDE/FORMOTEROL FUMARATE 160/4.5 60 PUFFS/INHALER INH SCH ×2 (08:13→20:13)
[2019-11-06] MEDS: METOPROLOL SUCC 50MG EXT REL TAB PO SCH (08:14)
[2019-11-06] MEDS: AZITHROMYCIN 250 MG TAB PO SCH (08:14)
[2019-11-06] MEDS: CHOLECALCIFEROL 1,000 UNITS TAB PO SCH (08:14)
[2019-11-06] MEDS: CETIRIZINE HCL 10 MG TABLET PO SCH (08:15)
[2019-11-06] MEDS: POLYETHYLENE (MIRALAX) 17 GM PACK PO SCH (08:16)
[2019-11-06] MEDS: ARTIFICIAL TEARS OP SCH (08:19)
[2019-11-06] MEDS: LIDOCAINE 5% 1 PATCH TD SCH (08:24)
[2019-11-06] MEDS: cefTRIAXone SODIUM 2,000 MG in DEXTROSE 5% 50 ML IV SCH (08:33)
[2019-11-06 08:44] LABS: Basophils # (auto) 0.01 K/uL (0-0.2); Basophils % (auto) 0.2 %; Eosinophils # (auto) 0.23 K/uL (0-0.5); Eosinophils % (auto) 5.3 %; Hematocrit (blood only) 32.5 % (42-52); Hemoglobin 11.7 g/dL (14.0-18.0); Immature Granulocytes # (auto) 0.02 K/uL (0.00-0.02); Immature Granulocytes % (auto) 0.5 %; Lymphocytes % (auto) 25.5 %; Mean Corpuscular Volume 94.5 fL (80-100); Monocytes # (auto) 0.48 K/uL (0.11-0.59); Monocytes % (auto) 11.1 %; Neutrophils # (auto) 2.47 K/uL (1.4-6.5); Neutrophils % (auto) 57.4 %; Platelet Count 214 K/uL (130-400); RDW Coefficient of Variation 13.3 % (11.5-14.5); RDW Standard Deviation 45.9 fL (36.4-46.3); Red Blood Count 3.44 M/uL (4.7-6.1); White Blood Count 4.31 K/uL (4.8-10.8)
[2019-11-06 09:20] LABS: BUN Creatinine Ratio 9.6 (10-20); Calcium 9.2 mg/dl (8.5-10.1); Creatinine Clr Calc Pharmacy 66.8 ml/min; Est GFR (African American) 96.6; Est GFR (Non-African American) 83.3; Magnesium 1.7 mg/dl (1.8-2.4); Potassium 3.9 mmol/L (3.5-5.1)
[2019-11-06 09:23] LABS: Bilirubin,Total 0.9 mg/dl (0.2-1); Carcinoembryonic Antigen 3.6 ng/ml (0-2.5); Prostate Specific Antigen 2.32 ng/ml (0-4); Vitamin D, 25 Hydrox 63.9 ng/ml (30-100)
[2019-11-06] MEDS: ACETAMINOPHEN 325 MG TAB PO PRN (11:43)
[2019-11-06] MEDS: FLUTICASONE PROPIONATE NA SPR 16 GM BTL PRN (12:59)
--- NOTE | 2019-11-06 14:00 | Hospitalist Progress Note ---
Date of Service November 06, 2019 Assessment & Plan (1) Community acquired bacterial pneumonia: Noted on CT, although lungs clear to auscultation. Discussed with radiology and thought unlikely underlying mass.. Rx ceftriaxone and azithromycin started 11/05. Will need repeat CT in 3 months to check for resolution (2) Fall: Generalized weakness recently exacerbated by pneumonia and hypotension (exacerbated by recent introduction of finasteride). Possible improvement with steroids due to drug (HCTZ) induced lupus vs. COPD vs. underlying cancer vs. helping with blood pressure. 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 Will defer plaquenil/steroids at present pending possible biopsy with dermatology. Consider rheumatology referral as outpatient. (3) General weakness: as above (4) Exertional shortness of breath: Acute on chronic. Lung appearance on CT of moderate emphysema for which he has never been on any treatment. Interestingly he does not appear to be in acute exacerbation however despite current appearance of pneumonia. If symptoms persistent despite treatment for PNA and COPD would consider cardiac stress test. (5) Emphysema lung: Start symbicort and Spiriva to see if symptoms improve. (6) Dizziness: His reference to vertigo is a perfect story for orthostatic hypotension. Recommended he stops taking dramamine every day as likely making his balance worse. Likely acutely exacerbated by finasteride and pneumonia in last 2 weeks but will also stop losartan as it has been going on for approximately 2 years. Stop alfuzosin and switch for tamsulosin (7) Acute hyponatremia: Serum osm 253, Na 122, Urine osm 400, Na 86 (although taken 12 hours apart and serum Na 125 at time of urine Na) Diff Diag: hypo/euvolemic on exam, hypotonic hyponatremia without renal failure / diuretic use. 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 NSS stopped and continue on fluid restriction and monitor for now. Given chronicity suspect this is not just due to current pneumonia and concerning bowel changes for colon malignancy will need to be worked up in the near future after he gets over acute illness. CEA added to morning labs. Random cortisol 22.41 - appears appropriate and no hyperkalemia to suggest adrenal insufficiency, however will also get AM cortisol. TSH 1.29 Improving with fluid restriction (8) Hypomagnesemia: Continue Mg Ox 400mg BID and trend daily while admitted. (9) Acid reflux: FOB negative despite patient description of melanic stools. Continue pantoprazole PO 40mg BID Appears improved (10) Benign localized hyperplasia of prostate with urinary obstruction: Stop finasteride. Still having hypotension therefore will switch alfuzosin for tamsulosin PSA unremarkable (11) Rash and nonspecific skin eruption: Discussed with Dr Faria. Photosensitive rash suspected to be due to HCTZ. Improved with steroid course (12) Glaucoma: Continue his eyedrops (13) Paroxysmal atrial fibrillation: Suspected persistent. No prior cardiac stents or bypass. Continue beta- bree for rate control, Eliquis for anticoagulation. (14) Compression fracture: T8, T12 and L1. Subacute/chronic. No associated pain with these. No suspicious osteolytic or osteoblastic lesions (15) Rib fractures: Healing 8th - 11th rib fractures. Suspect from prior fall. 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 Suspect due to peripheral neuropathy as below. (17) Peripheral neuropathy: Unclear etiology but suspect contributory towards falls. Apparently worked up by neurology and tried gabapentin which made his balance much worse. B12 level high. Not acute reason for presentation therefore recommend repeating outpatient workup if warranted. (18) Ambulatory dysfunction: Suspect multifactorial with deconditioning, sensory ataxia, poor visual acuity (in childhood and now with glaucoma). Given improvement no need to assess for spinal stenosis at present but could be considered as outpatient. (19) Discharge planning issues: PT/OT. Patient refusing rehabilitation Subjective Patient feels most of his symptoms have improved with medication adjustments. Hypotension - episode after physical therapy with low blood pressure coinciding with feeling dizzy Nausea - less with increased pantoprazole and elevating head of bed Shortness of breath on exertion - feels much improved, walking around with physical therapy. Thinks the symbicort is helping and his lungs feel better. Improved with PT Notes not had a bowel movement in 4 days and feeling consipated Review of Systems Review of Systems: All systems reviewed & are unremarkable except as noted in HPI & below Physical Exam Constitutional: WD/WN, vitals as above (hypotensive episode) no acute distress Eyes: + anicteric sclerae; normal pupil size ENMT: external ear and nose normal, oropharynx normal Neck: trachea midline Respiratory: normal respiratory effort, lungs clear to auscultation Cardiovascular: RRR, no murmur, no edema Gastrointestinal (Abdomen): normal bowel sounds, soft, nontender, no hepatosplenomegaly Skin: erythematous macular rash with some scaling on arms and chest. Neurologic: moves all extremities (generalized weakness) and awake; no focal motor deficits and not confused Speech / Cognition: normal speech Psychiatric: A+Ox3, euthymic affect Results & Data Vital Signs (Past 12 Hours) Vital Signs Temp Pulse Pulse Resp BP BP Pulse Ox 11/06/19 12:58 110/71 11/06/19 11:33 36.5 C 72 18 91/55 L 94 11/06/19 08:00 75 11/06/19 07:16 36.6 C 86 18 109/73 95 11/06/19 02:52 36.6 C 95 H 19 123/64 94 11/06/19 02:35 76 PG Care Time/CCT Total # of Minutes Spent Total Time Spent with Patient: Total time spent is greater than 50% in coordination of care (as documented) at patient's floor/unit and/or counseling patient: (1) Rib fractures Encounter type: initial encounter Fracture type: closed Laterality: left Rib fracture type: multiple ribs Qualified Code(s): S22.42XA - Multiple fractures of ribs, left side, initial encounter for closed fracture (2) Peripheral neuropathy Peripheral neuropathy type: polyneuropathy, unspecified Qualified Code(s): G62.9 - Polyneuropathy, unspecified (3) Emphysema lung Emphysema type: panlobular Qualified Code(s): J43.1 - Panlobular emphysema (4) Fall Encounter type: initial encounter Qualified Code(s): W19.XXXA - Unspecified fall, initial encounter
[2019-11-06] MEDS: ATORVASTATIN 10 MG TAB PO SCH (20:09)
[2019-11-06] MEDS: BIMATOPROST 0.01% OP SOLN 2.5 ML BTL OPB SCH (20:13)
[2019-11-06] MEDS ORDERED: TAMSULOSIN HCL 0.4 MG CAP PO SCH (21:00)
[2019-11-07 07:55] LABS: Hematocrit (blood only) 32.9 % (42-52); Hemoglobin 11.9 g/dL (14.0-18.0); Mean Corpuscular Hemoglobin 34.9 pg (25-34); Mean Corpuscular Hgb Conc 36.2 g/dL (32-36); Mean Corpuscular Volume 96.5 fL (80-100); Mean Platelet Volume 8.1 fL (7.4-10.4); Platelet Count 209 K/uL (130-400); RDW Coefficient of Variation 13.4 % (11.5-14.5); RDW Standard Deviation 46.5 fL (36.4-46.3); Red Blood Count 3.41 M/uL (4.7-6.1); White Blood Count 4.87 K/uL (4.8-10.8)
[2019-11-07] MEDS: LACTOBACILLUS ACIDOPHILUS (FLORANEX) TAB PO SCH ×2 (08:14→11:16)
[2019-11-07] MEDS: ARTIFICIAL TEARS OP SCH (08:15)
[2019-11-07] MEDS: APIXABAN 5 MG TABLET PO SCH (08:17)
[2019-11-07] MEDS: MULTIVITAMIN TAB PO SCH (08:17)
[2019-11-07] MEDS: MAGNESIUM OXIDE 400 MG TAB PO SCH (08:17)
[2019-11-07] MEDS: PANTOprazole 40 MG TAB PO SCH (08:18)
[2019-11-07] MEDS: TIOTROPIUM BROMIDE 5 PUFF/90 MCG INH INH SCH (08:18)
[2019-11-07] MEDS: BUDESONIDE/FORMOTEROL FUMARATE 160/4.5 60 PUFFS/INHALER INH SCH (08:19)
[2019-11-07] MEDS: CHOLECALCIFEROL 1,000 UNITS TAB PO SCH (08:20)
[2019-11-07] MEDS: METOPROLOL SUCC 50MG EXT REL TAB PO SCH (08:20)
[2019-11-07] MEDS: CETIRIZINE HCL 10 MG TABLET PO SCH (08:21)
[2019-11-07] MEDS: AZITHROMYCIN 250 MG TAB PO SCH (08:21)
[2019-11-07 08:23] LABS: BUN Creatinine Ratio 13.4 (10-20); Calcium 9.2 mg/dl (8.5-10.1); Creatinine Clr Calc Pharmacy 64.3 ml/min; Est GFR (African American) 95.1; Potassium 4.4 mmol/L (3.5-5.1)
[2019-11-07] MEDS: POLYETHYLENE (MIRALAX) 17 GM PACK PO SCH (08:25)
[2019-11-07] MEDS: LIDOCAINE 5% 1 PATCH TD SCH (08:27)
[2019-11-07] MEDS: cefTRIAXone SODIUM 2,000 MG in DEXTROSE 5% 50 ML IV SCH (08:31)
[2019-11-07] MEDS: ACETAMINOPHEN 325 MG TAB PO PRN (11:16)
[2019-11-07] MEDS: FLUTICASONE PROPIONATE NA SPR 16 GM BTL PRN (11:17)
[2019-11-09 13:41] LABS: Anti Nuclear Antibody Screen NEGATIVE (NEGATIVE)
--- NOTE | 2019-11-10 16:01 | Discharge Summary ---
Date of Service November 07, 2019 Admission HPI Per Admitting Provider 84 years old man with past medical history of atrial fibrillation on Eliquis, essential hypertension, BPH with urinary obstruction, glaucoma, GERD, dyslipidemia and chronic arthritis presented to the ED with generalized weakness, dizziness and multiple falls. Patient stated that he does have history of benign positional vertigo but this dizziness he is having now seems to be different. It seems to be more like weakness in his lower extremities and overall body. He was diagnosed with hyponatremia around June 2019 at that time he was taking of hydrochlorothiazide which did not help with the hyponatremia. Then around September 2019 he developed widespread macular rash all over his body, traffic expert gave him a tapering dose of steroids for about 3 to 4 weeks and topical steroids. While he was taking the steroids his arthritis improved and his overall health improved. After that he started to decline significantly and had multiple falls at home last was about 3 days prior to admission. On urologist added Finasteride 5 mg p.o. daily to his usual regimen all of alfuzosin 10 mg daily. And around that time his losartan was decreased from 50 mg p.o. daily to 25 mg p.o. daily due to low blood pressure, where his systolic blood pressure was between 90 -100. He reported having last 2 bowel movements were black tarry stool. Has been having constipation lately and started taking MiraLAX. Also among his most prominent complaint is severe exertional progressive dyspnea that seems to be new. Denies any chest pain, denies any focal weakness, denies any burning sensation in the urine or blood. Admission Exam Per Admitting Provider General frail elderly man, appears to be very weak HEENT: Left pupil is dilated 4 mm, right pupil is normal, patient said that he had pupillary dilation in left eye this morning with the sharebroker Neck: Supple /no swelling /central trach Heart: S1/S2 irregular irregularity/no gallop /no rub /2/6 murmur Lungs: Decreased air entry bilaterally, poor inspiratory effort but no rales/no wheezing/no use of accessory muscles of respiration Abdomen: Soft/nontender/no guarding/no rebound/no organomegaly/no pulsatile mass Musculoskeletal: No swelling/no edema/no tenderness/normal range of motion Neuro exam: Awake alert oriented 3/cranial nerves II through XII appear to be intact/sensation intact/moves all extremities/no abnormal movements Psychiatric evaluation: No depressed mood/normal affect Skin: Widespread macular rash on face, chest, back and all extremities Extremity: Normal pulse/no pitting edema/no clubbing or cyanosis Principal Diagnosis Community acquired pneumonia Hypotension causing falls Subacute hyponatremia 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 Pt reports improving. Neurologic moves all extremities (generalized weakness of lower extremities) and awake; no focal motor deficits and not confused Speech / Cognition: normal speech Motor/Sensory: no tremor Psychiatric A+Ox3, euthymic affect Lymphatic no cervical or axillary lymphadenopathy Discharge Data Allergies Allergy/AdvReac Type Severity Reaction Status Date / Time ketorolac Allergy Unknown . Verified 11/04/19 12:08 Penicillins Allergy Unknown UNKNOWN Verified 11/04/19 12:08 gabapentin Allergy Verified 11/04/19 12:08 Dust Mite Extract Allergy Unknown seasonal Uncoded 11/04/19 12:08 type allergies Consultations 11/04/19 13:32 ED Decision to Admit Stat Ordered Studies 11/04/19 10:59 CT cervical spine wo con Stat CT head/brain wo con Stat 11/04/19 14:51 CT chest w con Stat 11/04/19 14:57 CT abd pelvis oral and IV con Stat Hospital Course (1) Community acquired bacterial pneumonia: Erik Forrest is an 84 year old male admitted to [facility] from November 04 to 2018 due to recurrent falls and generalized weakness. He has a number of systemic ongoing symptoms concerning for malignancy therefore underwent CT chest and abdo/pelvis. This showed findings concerning for pneumonia. He was treated with IV ceftriaxone and azithromycin while admitted (switched to cefdinir on discharge). Recommend CT scan follow-up in 3 months to check for resolution. In addition his CT scan was concerning for moderate emphysema (COPD). No indication on exam of acute exacerbation of this. However he was trialed on Spiriva and Symbicort and reported some improvement therefore these will be continued at least temporarily on discharge. Recommend follow-up PFTs in 4-6 weeks when well. Falls appear to be multifactorial including pneumonia diagnosis above, reduced vision, chronic peripheral neuropathy. However he also notes ongoing longstanding vertigo which is actually orthostatic hypotension. This improved with stopping finasteride, losartan and alfuzosin. Switched to tamsulosin for his lower urinary tract symptoms of BPH to improve his blood pressure. Hyponatremia - appears to be more subacute and unlikely cause of acute worsening in last 2 weeks. However suspect losartan and SIADH contributing towards this and improved with fluid restriction and discontinuing losartan. Recommend continued monitoring of this with his PCP. GERD - this is likely the cause of his morning nausea and recommended elevated head of his bed. Consider referral to GI if persistent despite this. In addition he has number of subacute symptoms suggestive of hydrochlorothiazide induced lupus; previously improved with steroids. He will follow up with his traffic expert as it is suspected his rash was due to HCTZ use and timeline appears to fit this well. VITOR screen outstanding on discharge however even if negative could consider trial of Plaquenil to see if he improves. Due to multiple systemic symptoms and recent change in bowel habit, I also recommended discussing referral to GI with his PCP. CEA was done will admitted and is slightly elevated at 3.6. Kind regards, Dr. Cezar Astudillo (2) Fall: (3) General weakness: (4) Exertional shortness of breath: (5) Emphysema lung: (6) Dizziness: (7) Acute hyponatremia: (8) Hypomagnesemia: (9) Acid reflux: (10) Benign localized hyperplasia of prostate with urinary obstruction: (11) Rash and nonspecific skin eruption: (12) Glaucoma: (13) Paroxysmal atrial fibrillation: (14) Compression fracture: (15) Rib fractures: (16) Sensory ataxia: (17) Peripheral neuropathy: (18) Ambulatory dysfunction: Total Time Total Time Spent Total Time Spent (In Minutes): 55 Total Time Includes: Examination of the Patient, Discharge Planning and Medication Reconciliation Discharge Plan Discharge Items Patient Disposition: Home - Home Health Services Reason For Visit: Generalized weakness and recurrent falls Discharge Diagnosis: Community acquired pneumonia Hypotension causing falls Subacute hyponatremia 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 On further evaluation you underwent a CT scanning of your lungs which showed findings concerning for pneumonia. For this you were treated with intravenous antibiotics and will c ontinue on cefdinir and azithromycin as prescribed below. Recommend CT scan follow-up in 3 months to check for resolution. In addition your CT scan was concerning for moderate emphysema (COPD). No indication on exam of acute exacerbation of this. However he was trialed on Spiriva and Symbicort and reported some improvement therefore these will be continued at least temporarily on discharge. Recommend follow-up lung function test to determine ongoing treatment with your primary care doctor. I suspect you are following for multiple reasons including pneumonia diagnosis above, reduced vision, chronic peripheral neuropathy. However most notably your blood pressure was low causing you to feel dizzy. This improved with stopping finasteride, losartan and alfuzosin. You have been switched onto tamsulosin to manage symptoms of benign prostatic hypertrophy and lessen the impact on your blood pressure. You were also diagnosed with low sodium levels. 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 Losartan may have also been contributing towards low sodium levels and this is been discontinued. Recommend following up with your primary care doctor. Your reflux (likely cause of morning nausea) also appeared to improve with elevating the head of your bed to 30 degrees and recommend continuing this. You also switched to pantoprazole while admitted but will be switched back to your usual omeprazole on discharge. If you notice your symptoms getting worse you ma y benefit from switching back to pantoprazole. Recommend discussing further with your primary care doctor. In addition you have a number of subacute symptoms suggestive of hydrochlorothiazide induced lupus; previously improved with steroids. Recommend following up with your traffic expert as previously arranged to determine etiology of your rash. Currently lab tests are outstanding regarding the diagnosis of this and recommend following with your primary care doctor to determine ongoing treatment. Due to multiple systemic symptoms and recent change in bowel habit, I would also recommend discussing potential referral to gastroenterology with your primary care doctor. Kind regards, Dr. Cezar Astudillo Pending Studies at Discharge: Yes (VITOR screen with reflex) Stand-Alone Forms: My [facility], Smoking Cessation Medications and DC Order Prescriptions: New tamsulosin 0.4 mg Capsule 0.4 mg PO HS Qty: 30 RF: 0 Spiriva with HandiHaler 18 mcg Capsule, W/Inhalation Device 18 mcg inhalation QAM Qty: 30 RF: 0 Lactobacillus acidoph-L.bulgar [Floranex] 1 million cell Tablet 4 tab PO QIDM 4 Days Qty: 16 RF: 0 cefdinir 300 mg capsule 300 mg PO BID 4 Days Qty: 8 RF: 0 Symbicort 160-4.5 mcg/actuation Hfa Aerosol Inhaler 2 puff inhalation BID Qty: 10.2 RF: 0 magnesium oxide 400 mg (241.3 mg magnesium) Tablet 400 mg PO BID Qty: 60 RF: 0 Continued Eliquis 5 mg tablet 5 mg PO BID Qty: 180 RF: 3 metoprolol succinate 50 mg tablet extended release 24 hr 50 mg PO DAILY Qty: 90 RF: 1 multivitamin tablet 1 tab PO DAILY RF: 0 cetirizine 10 mg tablet 10 mg PO DAILY RF: 0 fluticasone propionate 50 mcg/actuation spray,suspension 2 sprays intranasal DAILY PRN (Reason: Nasal Congestion) Qty: 1 RF: 0 omeprazole 10 mg capsule,delayed release(DR/EC) 10 mg PO BID Qty: 180 RF: 0 cholecalciferol (vitamin D3) 1,000 unit (25 mcg) tablet 1,000 units PO DAILY RF: 0 Lumigan 0.01 % drops 1 drops OP QPM RF: 0 polyvinyl alcohol 1.4 % drops 1 drops OP DAILY RF: 0 atorvastatin 10 mg tablet 10 mg PO HS RF: 0 Discontinued losartan 25 mg tablet 25 mg PO DAILY Qty: 30 RF: 2 finasteride 5 mg tablet 5 mg PO DAILY Qty: 90 RF: 3 alfuzosin 10 mg tablet extended release 24 hr 10 mg PO QPM RF: 0 Discharge Orders: Discharge Order (Routine); Ordered 11/07/19 Ordered By: Cezar Astudillo Admission Data Admit Date/Time: 11/04/19 14:51 Attending Provider: Cezar Astudillo Admit Provider: Bertin Corea Primary Care Provider: Ayad Lozano Other Providers: Bertin Corea ; Roland,Home [facility] Other Interventions: Discharge Summary Assessment (RN) Last Done: 11/07/19 14:03 DC Date/Time DO NOT enter until pt leaves facility: 11/07/19 16:10
== END 2019-11-07 16:10 | disposition home health service (06) | DRG 194 ==
LOC: ED 10:07 → 2E 14:51 → SUATTDRO 14:51 → 2E 15:38 → 2W 11-05 15:15

== ENCOUNTER 2020-04-23 23:19 | Inpatient (IN) ==
[2020-04-23] MEDS ORDERED: fentaNYL citrate 100 MCG/2 ML VIAL IV STA (23:49)
[2020-04-23] MEDS ORDERED: fentaNYL citrate 100 MCG/2 ML VIAL IV PRN (23:49)
--- NOTE | 2020-04-23 23:59 | Emergency Department Note ---
Impression & Plan Elevated liver enzymes, Abdominal pain, acute, epigastric ED Provider Note Name: JONH ANDERSON Age: 84 Sex: M Arrives Via: Walk-In Informant: Patient, Daughter ED Provider: Laim Gonzalez MD Chief Complaint: Upper Abdominal Pain Impression: Elevated Liver Enzymes Abdominal Pain, acute, Epigastric Medical Decision Makin yr old male with extensive PMH including Afib, Emphysema, Neuropathy, Stroke, Factor V, Hyperlipidemia, HTN on anticoagulation arrives with acute epigastric abdominal pain. Quite uncomfortable and does have distended abdomen. Labs obtained and sent for CT. He furthermore does see fluid overloaded currently which I suspect has worsened his typical emphysema. He was was found to have elevated Liver Enzymes along with CT concerning for gallbladder dysfunction/cholecystitis. With these in setting of multiple medical comorbidi ties reviewed with hospitalist who will bring patient in for further management and likely MRCP. I opted to give dosing of abx for gallbladder coverage. Prior Medical Record and Triage/Nursing Notes reviewed by Me Additional history obtained from Chart and daughter Differentials:Appendicitis, ACS, Esophagitis, infections, diverticulitis, UTI, obstruction, mesenteric ischemia, aortic pathology, inflammatory bowel disease, renal colic, PUD, pancreatitis, biliary pathology, hernia, volvulus, constipation, as well as other pathologies. Vital Signs: reviewed and remarkable for no significant abnormalities Interventions: saline lock, fentanyl IV, mefoxin 2gm IV Labs:Reviewed and remarkable for elevated LFTs Imaging:[facility] Radiologist interpretation reviewed by me: CT abd/pelv IV: concerning findings for cholecystitis Consults:Dr Arya COOL Hospitalist Plan: Disposition:Hospitalization. Condition: Good Blood pressure:Normal.No Referral necessary Prescriptions:none PDMP: n/a History of Present Illness:84 / M arrives for evaluation of upper abdominal pain. Patient notes onset upper abdominal pain over last few days. Today with increased swelling of abdomen. Associated with nausea. Radiates to back, though admits he has been dealing with several weeks thoracic pain secondary to acute vertebral compression fracture of T6. Notes pain got worse with laying flat for MRI a few days ago. Denies fevers, chills, vomiting, cp, sob beyond normal emphysema, headache, neck pain, nor other symptoms. Dealing with chronic lupus rash for last 6 months, as well as persistent bilateral leg swelling after being in hospital [address] chest 1 month ago for pneumonia follow up revealed T6 fracture thus MRI done for follow up of that. Patient denies falls nor injuries. He is on eliquis. He has no new weakness of legs. Does not some constipation over the last few weeks though had BM this morning. ROS: See above HPI for pertinent positives & negatives. A total of 10 systems reviewed and were otherwise negative. Past Medical History:Afib, Ephysema, Neuropathy, Stroke, Factor V, Hyperlipidemia, HTN Past Surgical History:Multiple ortho surgeries, umbilical hernia repair Family History:See Below Social History:See Below Home Medications:See Below Allergies:PNC, Gabapentin, HCTZ, Toradol Vitals:Blood Pressure: 177/102, Pulse 109, RR 18, T 37.1C, O2 97% on RA Physical Exam: GENERAL: Patient is chronically unwell appearing and in moderate distress. EYES: No scleral icterus, unremarkable pupils. ENT: Mucous membranes moist, no nasal congestion. NECK: No masses appreciated, nomeningismus, trachea is midline. RESPIRATORY: Mildly dyspneic (states baseline due to emphysema). Clear to auscultation and equal bilaterally. No wheeze, no rhonchi. CARDIOVASCULAR: Irregular.Mild systolic murmurs. No rubs, gallops appreciated. GASTROINTESTINAL: Distended with fluid wave, no peritonitis.Bowel sounds positive.No masses appreciated. BACK: No midline tenderness, no CVA tenderness EXTREMITIES: 4+ pitting edema bilateral legs to thighs, normal movement. NEUROLOGIC: Alert and oriented, no acute motor or sensory deficits, no focal weakness, cranial nerves grossly intact. 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) Carotid artery plaque (Resolved) Chronic hyponatremia (Chronic) Closed head injury (Inactive) Congenital nystagmus Drug-induced lupus erythematosus Emphysema lung (Chronic) Factor V Leiden mutation (Chronic) Gait disturbance, post-stroke (Chronic) Glaucoma (Chronic) Hyperlipidemia (Chronic) Hypertension (Chronic) Mitral regurgitation (Chronic) 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 Unknown Heart disease Hypertension Pulmonary embolism Sister No problems noted. Denies family history of Ovarian cancer Prostate cancer Diabetes Breast cancer Social History Preferred Language: Zambian Communication Ability: Effective Visual Impairment: No Limitations Hearing Ability: Use of Hearing Aid Beliefs That Will Affect Care: None marital status: / Current Living Situation: Alone current occupational status: retired Other Information That Helps Us Care for You: No Feels Safe at Home: Yes Safety Concerns: Feels Safe At This Time Smoking Status: Never smoker Hx Alcohol Use: Yes Alcohol type: beer Alcohol Intake Frequency: Daily Hx Substance Use: No Childhood Exposure to Second-Hand Smoke: Yes caffeine: Yes Dental Care, Regularly: No Physical Activity Frequency: Does not Exercise Seatbelt Use: always Sunscreen Use: Yes Allergies Allergies Allergy/AdvReac Type Severity Reaction Status Date / Time ketorolac Allergy Unknown . 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 Dust Mite Extract Allergy Unknown seasonal Uncoded 04/23/20 23:47 type allergies Home Meds Home Medications Medication Instructions Recorded Confirmed cetirizine 10 mg tablet 10 mg PO DAILY tab 07/30/19 04/24/20 cholecalciferol (vitamin D3) 25 1,000 units PO DAILY tab 07/30/19 04/24/20 mcg (1,000 unit) tablet multivitamin 1 tab PO DAILY tab 07/30/19 04/24/20 bimatoprost 0.01 % eye drops 1 drops OP QPM 09/15/19 04/24/20 polyvinyl alcohol 1.4 % eye drops 1 drops OP DAILY 09/15/19 04/24/20 atorvastatin 10 mg PO HS 11/04/19 04/24/20 emollient 1 appln TOP DAILY gm 12/29/19 04/24/20 mineral oil-hydrophil petrolat 1 appln TOP DAILY gm 12/29/19 04/24/20 triamcinolone acetonide 0.1 % 1 appln TOP DAILY 12/29/19 04/24/20 topical cream metoprolol succinate 50 mg PO DAILY 04/24/20 04/24/20 Previous Rx's Medication Instructions Recorded apixaban 5 mg tablet 5 mg PO BID #180 tab 05/26/19 fluticasone propionate 50 2 sprays INTRANASAL DAILY PRN #48 11/20/19 mcg/actuation nasal gm spray,suspension magnesium oxide 400 mg (241.3 mg 400 mg PO BID #180 tab 12/02/19 magnesium) tablet tamsulosin 0.4 mg capsule 0.4 mg PO HS #90 cap 12/02/19 tiotropium bromide 18 mcg capsule 18 mcg INHALATION DAILY #90 puffs 12/02/19 with inhalation device omeprazole 10 mg capsule,delayed 20 mg PO BID #360 cap 12/04/19 release metoprolol tartrate 25 mg tablet 25 mg PO DAILY PRN #30 tab 01/13/20 fluticasone furoate 100 1 puffs INH DAILY #60 ea 03/07/20 mcg-vilanterol 25 mcg/dose inhalation powder lorazepam 0.5 mg tablet 0.5 mg PO .COMPLEX PRN #2 tab 04/14/20 Results & Data (ED) Vital Signs Vital Signs - 24 hr 04/23/20 23:26 04/24/20 01:03 04/24/20 02:00 Temperature 37.1 C Temperature Source Oral Pulse Rate 109 H Pulse Rate [Apical] 92 H 101 H Pulse Rhythm [Apical] Irregular Irregular Respiratory Rate 18 18 20 Respiratory Effort / Characteristics Non-Labored Spontaneous Non-Labored Spontaneous Respiratory Depth Normal Normal Blood Pressure 177/102 H Blood Pressure [Left Arm] 161/105 H 149/94 H Blood Pressure Mean 127 Blood Pressure Mean [Left Arm] 123 112 Blood Pressure Position [Left Arm] Pulse Oximetry 97 94 96 Oxygen Delivery Method Room Air Room Air Room Air Sepsis Recent Fever Within 48 Hours No Sepsis New/Unexplained Change in Mental Status No Sepsis Action Taken by Nursing No Action Required 04/24/20 03:43 Temperature Temperature Source Pulse Rate Pulse Rate [Apical] 94 H Pulse Rhythm [Apical] Irregular Respiratory Rate 20 Respiratory Effort / Characteristics Non-Labored Spontaneous Respiratory Depth Normal Blood Pressure Blood Pressure [Left Arm] 142/98 H Blood Pressure Mean Blood Pressure Mean [Left Arm] 112 Blood Pressure Position [Left Arm] Sitting Pulse Oximetry 97 Oxygen Delivery Method Room Air Sepsis Recent Fever Within 48 Hours Sepsis New/Unexplained Change in Mental Status Sepsis Action Taken by Nursing Laboratory Data Result diagrams: 04/23/20 23:40 04/23/20 23:40 Lab Results 04/23/20 04/23/20 04/23/20 Range/Units 23:40 23:40 23:40 WBC 6.27 (4.8-10.8) K/uL RBC 3.53 L (4.7-6.1) M/uL Hgb 12.6 L (14.0-18.0) g/dL Hct 35.1 L (42-52) % MCV 99.4 (80-100) fL MCH 35.7 H (25-34) pg MCHC 35.9 (32-36) g/dL RDW Std Deviation 48.5 H (36.4-46.3) fL RDW Coeff of Henry 13.4 (11.5-14.5) % Plt Count 177 (130-400) K/uL MPV 8.7 (7.4-10.4) fL Immature Gran % (Auto) 0.5 % Neut % (Auto) 63.3 % Lymph % (Auto) 21.5 % Terrell % (Auto) 9.6 % Eos % (Auto) 4.9 % Baso % (Auto) 0.2 % Immature Gran # (Auto) 0.03 H (0.00-0.02) K/uL Neut # (Auto) 3.97 (1.4-6.5) K/uL Lymph # (Auto) 1.35 (1.2-3.4) K/uL Terrell # (Auto) 0.60 H (0.11-0.59) K/uL Eos # (Auto) 0.31 (0-0.5) K/uL Baso # (Auto) 0.01 (0-0.2) K/uL PT 12.5 H (9.0-12.0) Seconds INR 1.2 H (0.9-1.1) Sodium 128 L (136-145) mmol/L Potassium 4.2 (3.5-5.1) mmol/L Chloride 93 L (98-107) mmol/L Carbon Dioxide 27 (21-32) mmol/L Anion Gap 8.0 (3-11) BUN 13 (7-18) mg/dl Creatinine 0.77 (0.6-1.4) mg/dl Est Cr Clr Drug Dosing Not Reportable Est GFR ( Amer) 96.6 Est GFR (Non-Af Amer) 83.3 BUN/Creatinine Ratio 16.7 (10-20) Glucose 131 H (70-99) mg/dl Calcium 8.4 L (8.5-10.1) mg/dl Magnesium 1.4 L (1.8-2.4) mg/dl Total Bilirubin 2.4 H (0.2-1) mg/dl Direct Bilirubin 1.3 H (0-0.2) mg/dl AST 106 H (15-37) U/L ALT 132 H (12-78) U/L Alkaline Phosphatase 294 H (45-117) U/L Troponin I < 0.015 (0-0.045) ng/ml Total Protein 7.2 (6.4-8.2) gm/dl Albumin 3.6 (3.4-5.0) gm/dl Lipase 106 (73-393) U/L TSH 1.940 (0.300-4.500) uIu/ml Urine Color Urine Appearance (Clear) Urine pH (4.5-7.5) Ur Specific [place] (1.000-1.030) Urine Protein (Negative) Urine Glucose (UA) (Negative) Urine Ketones (Negative) Urine Blood (Negative) Urine Nitrite (Negative) Urine Bilirubin (Negative) Urine Urobilinogen (Negative) Ur Leukocyte Esterase (Negative) 04/24/20 Range/Units 03:35 WBC (4.8-10.8) K/uL RBC (4.7-6.1) M/uL Hgb (14.0-18.0) g/dL Hct (42-52) % MCV (80-100) fL MCH (25-34) pg MCHC (32-36) g/dL RDW Std Deviation (36.4-46.3) fL RDW Coeff of Henry (11.5-14.5) % Plt Count (130-400) K/uL MPV (7.4-10.4) fL Immature Gran % (Auto) % Neut % (Auto) % Lymph % (Auto) % Terrell % (Auto) % Eos % (Auto) % Baso % (Auto) % Immature Gran # (Auto) (0.00-0.02) K/uL Neut # (Auto) (1.4-6.5) K/uL Lymph # (Auto) (1.2-3.4) K/uL Terrell # (Auto) (0.11-0.59) K/uL Eos # (Auto) (0-0.5) K/uL Baso # (Auto) (0-0.2) K/uL PT (9.0-12.0) Seconds INR (0.9-1.1) Sodium (136-145) mmol/L Potassium (3.5-5.1) mmol/L Chloride (98-107) mmol/L Carbon Dioxide (21-32) mmol/L Anion Gap (3-11) BUN (7-18) mg/dl Creatinine (0.6-1.4) mg/dl Est Cr Clr Drug Dosing Est GFR ( Amer) Est GFR (Non-Af Amer) BUN/Creatinine Ratio (10-20) Glucose (70-99) mg/dl Calcium (8.5-10.1) mg/dl Magnesium (1.8-2.4) mg/dl Total Bilirubin (0.2-1) mg/dl Direct Bilirubin (0-0.2) mg/dl AST (15-37) U/L ALT (12-78) U/L Alkaline Phosphatase (45-117) U/L Troponin I (0-0.045) ng/ml Total Protein (6.4-8.2) gm/dl Albumin (3.4-5.0) gm/dl Lipase (73-393) U/L TSH (0.300-4.500) uIu/ml Urine Color Yellow Urine Appearance Clear (Clear) Urine pH 8.5 H (4.5-7.5) Ur Specific [place] 1.037 H (1.000-1.030) Urine Protein Negative (Negative) Urine Glucose (UA) Negative (Negative) Urine Ketones Negative (Negative) Urine Blood Negative (Negative) Urine Nitrite Negative (Negative) Urine Bilirubin Negative (Negative) Urine Urobilinogen Negative (Negative) Ur Leukocyte Esterase Negative (Negative) Administered Medications Artificial Tears (Artificial Tears) 1 drops OP DAILY NICK Stop: 05/24/20 08:59 Last Admin: 04/24/20 09:46 Dose: Not Given Documented by: [id number] Atorvastatin Calcium (Lipitor) 10 mg PO HS NICK Stop: 05/24/20 20:59 Last Admin: 04/24/20 20:44 Dose: 10 mg Documented by: [id number] Bimatoprost (Lumigan 0.01%) 1 drops OP QPM NICK Stop: 05/24/20 20:59 Last Admin: 04/24/20 20:45 Dose: 1 drops Documented by: [id number] Cetirizine HCl (Zyrtec) 10 mg PO DAILY NICK Stop: 05/24/20 08:59 Last Admin: 04/24/20 09:50 Dose: 10 mg Documented by: [id number] Diclofenac Sodium (Voltaren 1% Top) 2 gm EXT QID NICK Stop: 05/24/20 16:59 Last Admin: 04/24/20 20:45 Dose: 2 gm Documented by: [id number] Admin: 04/24/20 16:52 Dose: 2 gm Documented by: [id number] Fluticasone/Vilanterol (Breo Ellipta 100/25 Mcg Inh) 1 puffs INH DAILY NICK Stop: 05/24/20 08:59 Last Admin: 04/24/20 09:46 Dose: 1 puffs Documented by: [id number] Potassium Chloride/Dextrose/Sod Cl (D5w And 1/2nss + 20meq Kcl) 20 meq in 1,000 mls @ 100 mls/hr IV .Q10H NICK Stop: 05/24/20 13:29 Last Admin: 04/24/20 13:44 Dose: 100 mls/hr Documented by: [id number] Ioversol (Optiray 320 100ml) 94 ml IV ONCE PRN PRN Reason: Interaction Checking Stop: 04/28/20 00:59 Last Admin: 04/24/20 01:00 Dose: 94 ml Documented by: [id number] Magnesium Oxide (Mag-Ox) 400 mg PO BID NICK Stop: 05/24/20 08:59 Last Admin: 04/24/20 20:45 Dose: 400 mg Documented by: [id number] Admin: 04/24/20 09:48 Dose: 400 mg Documented by: [id number] Metoprolol Succinate (Toprol Xl) 50 mg PO DAILY NICK Stop: 05/24/20 08:59 Last Admin: 04/24/20 09:49 Dose: 50 mg Documented by: [id number] Morphine Sulfate (Morphine Sulfate) 4 mg IV Q4H PRN PRN Reason: Pain Stop: 05/08/20 10:41 Last Admin: 04/24/20 20:57 Dose: 4 mg Documented by: [id number] Multivitamins (Multivitamin Tab) 1 tab PO DAILY NICK Stop: 05/24/20 08:59 Last Admin: 04/24/20 09:48 Dose: 1 tab Documented by: [id number] Ondansetron HCl (Zofran) 4 mg IV Q6H PRN PRN Reason: Nausea Stop: 05/24/20 09:25 Last Admin: 04/24/20 16:56 Dose: 4 mg Documented by: [id number] Admin: 04/24/20 09:43 Dose: 4 mg Documented by: [id number] Pantoprazole Sodium (Protonix) 40 mg PO BID NICK Stop: 05/24/20 08:59 Last Admin: 04/24/20 20:44 Dose: 40 mg Documented by: [id number] Admin: 04/24/20 09:48 Dose: 40 mg Documented by: [id number] Tamsulosin HCl (Flomax) 0.4 mg PO HS NICK Stop: 05/24/20 20:59 Last Admin: 04/24/20 20:44 Dose: 0.4 mg Documented by: [id number] Triamcinolone Acetonide (Kenalog 0.1%) 1 appln TOP DAILY NICK Stop: 05/24/20 08:59 Last Admin: 04/24/20 09:48 Dose: Not Given Documented by: [id number] Umeclidinium [place] (Incruse Ellipta) 1 puffs INH DAILY NICK Stop: 05/24/20 08:59 Last Admin: 04/24/20 09:47 Dose: 1 puffs Documented by: [id number] Discontinued Medications Apixaban (Eliquis) 5 mg PO BID NICK Stop: 05/24/20 08:59 Last Admin: 04/24/20 10:13 Dose: Not Given Documented by: [id number] Fentanyl Citrate (Fentanyl Citrate) 25 mcg IV Q15M PRN PRN Reason: Pain Stop: 05/07/20 23:48 Last Admin: 04/24/20 03:31 Dose: 25 mcg Documented by: [id number] Fentanyl Citrate (Fentanyl Citrate) 25 mcg IV NOW STA Stop: 04/23/20 23:50 Last Admin: 04/24/20 00:16 Dose: 25 mcg Documented by: [id number] Cefoxitin Sodium (Mefoxin) 2,000 mg in 60 mls @ 100 mls/hr IV NOW STA Stop: 04/24/20 02:46 Last Infusion: 04/24/20 04:05 Dose: 0 mls/hr Documented by: [id number] Infusion: 04/24/20 03:44 Dose: 0 mls/hr Documented by: [id number] Admin: 04/24/20 03:04 Dose: 100 mls/hr Documented by: [id number] Furosemide 40 mg/ Syringe 4 mls @ 4 mls/min IV ONE ONE Stop: 04/24/20 06:01 Last Admin: 04/24/20 06:28 Dose: 4 mls/min Documented by: [id number] Magnesium Sulfate 2 gm/ (Dextrose) 104 mls @ 100 mls/hr IV ONE ONE Stop: 04/24/20 07:02 Last Infusion: 04/24/20 07:51 Dose: 0 mls/hr Documented by: [id number] Admin: 04/24/20 06:28 Dose: 100 mls/hr Documented by: [id number] Morphine Sulfate (Morphine Sulfate) 1 mg IV Q4H PRN PRN Reason: Moderate Pain (4,5,6) Stop: 05/08/20 05:48 Last Admin: 04/24/20 08:57 Dose: 1 mg Documented by: [id number] Morphine Sulfate (Morphine Sulfate) 2 mg IV Q4H PRN PRN Reason: Pain Stop: 05/08/20 05:56 Last Admin: 04/24/20 06:37 Dose: 2 mg Documented by: [id number] Perflutren Lipid Microsphere (Definity) 2 ml IV ONCE ONE Stop: 04/24/20 07:48 Last Admin: 04/24/20 07:48 Dose: 2 ml Documented by: [id number] Discharge Plan Visit Data *Final* Discharge Date/Time: 04/24/20 04:26 Chief Complaint: Abdominal Pain Stated Complaint: SEVERE ABD PAIN, BACK PAIN ED Provider: Liam Gonzalez Discharge Problem: Elevated liver enzymes, Abdominal pain, acute, epigastric Patient Disposition: Admitted As Inpatient Discharge Instructions Interventions: ED Discharge Assessment Last Done: 04/24/20 04:26
[2020-04-24 00:02] LABS: Basophils # (auto) 0.01 K/uL (0-0.2); Basophils % (auto) 0.2 %; Eosinophils # (auto) 0.31 K/uL (0-0.5); Eosinophils % (auto) 4.9 %; Hematocrit (blood only) 35.1 % (42-52); Hemoglobin 12.6 g/dL (14.0-18.0); Immature Granulocytes # (auto) 0.03 K/uL (0.00-0.02); Immature Granulocytes % (auto) 0.5 %; Lymphocytes # (auto) 1.35 K/uL (1.2-3.4); Lymphocytes % (auto) 21.5 %; Mean Corpuscular Hemoglobin 35.7 pg (25-34); Mean Corpuscular Hgb Conc 35.9 g/dL (32-36); Mean Corpuscular Volume 99.4 fL (80-100); Mean Platelet Volume 8.7 fL (7.4-10.4); Monocytes % (auto) 9.6 %; Neutrophils # (auto) 3.97 K/uL (1.4-6.5); Neutrophils % (auto) 63.3 %; Platelet Count 177 K/uL (130-400); RDW Coefficient of Variation 13.4 % (11.5-14.5); RDW Standard Deviation 48.5 fL (36.4-46.3); Red Blood Count 3.53 M/uL (4.7-6.1); White Blood Count 6.27 K/uL (4.8-10.8)
[2020-04-24 00:10] LABS: INR 1.2 (0.9-1.1); Prothrombin Time 12.5 Seconds (9.0-12.0)
[2020-04-24 00:15] LABS: Alanine Aminotransferase 132 U/L (12-78); Albumin Level 3.6 gm/dl (3.4-5.0); Aspartate Aminotransferase 106 U/L (15-37); BUN Creatinine Ratio 16.7 (10-20); Bilirubin Direct 1.3 mg/dl (0-0.2); Blood Urea Nitrogen 13 mg/dl (7-18); Calcium 8.4 mg/dl (8.5-10.1); Carbon Dioxide 27 mmol/L (21-32); Chloride 93 mmol/L (98-107); Est GFR (African American) 96.6; Est GFR (Non-African American) 83.3; Glucose 131 mg/dl (70-99); Lipase 106 U/L (73-393); Magnesium 1.4 mg/dl (1.8-2.4); Potassium 4.2 mmol/L (3.5-5.1); Sodium 128 mmol/L (136-145)
[2020-04-24 00:26] LABS: Alkaline Phosphatase 294 U/L (45-117); Bilirubin,Total 2.4 mg/dl (0.2-1); Total Protein 7.2 gm/dl (6.4-8.2); Troponin I < 0.015 ng/ml (0-0.045)
[2020-04-24] MEDS ORDERED: IOVERSOL 100ml IV PRN (01:00)
[2020-04-24] MEDS ORDERED: cefOXitin 2,000 MG/60 ML BAG IV STA (02:11)
--- NOTE | 2020-04-24 03:35 | History & Physical Report ---
Date of Service April 24, 2020 Assessment & Plan (1) Elevated liver function tests: Erik Forrest is an 84-year-old male with a past medical history of factor V Leiden, hypertension, sensorineural hearing loss, emphysema, glaucoma, sensory ataxia/post stroke gait disturbance, A. fib, and wet macular degeneration who presents with approximately 2 days of increased upper abdominal pain. Acute right upper quadrant abdominal pain with elevated liver function tests suspicious for cholelithiasis CT ABDOMEN & PELVIS With Contrast shows moderately distended gallbladder. Full report: The bowel obstruction. Scattered diverticulosis without definitive CT findings to suggest diverticulitis. No evidence for acute appendicitis. No free intraperitoneal fluid or pneumoperitoneum. The gallbladder is moderately distended with subcentimeter hyperdensities suggesting a noncalcified gallstone or potential sludge. No biliary dilatation. However, there is right upper quadrant tenderness, right upper quadrant ultrasound may provide greater detail in this region. The liver, pancreas, spleen, adrenal glands and kidneys demonstrate no significant abnormality or interval change from the examination 11/04/2019. Stable atherosclerotic changes with ectasia of the infrarenal aorta, not significantly enlarged from the previous examination. The bladder is moderately distended without significant wall abnormalities or calcifications. Stable appearing compression endplate changes at T12-L1 level. Multilevel degenerative changes. Small fat-containing right inguinal hernia, stable. AST 106, ALT 132, alkaline phosphatase 294, lipase normal Suspect cholelithiasis MRCP pending GI consulted. Patient previously seen by Dr. Alfaro N.p.o. Morphine scaled every 4 hours for pain control Chronic back pain Patient with morphine for abdominal pain as above Heating K pad ordered History of A. fib with factor V Leiden Continue apixaban 5 mg p.o. twice daily Metoprolol as below Bilateral lower extremity edema. Worsened since not being able to be on hydrochlorothiazide Lasix 40 mg. Troponin normal Patient without overt pulmonary edema CXR pending TTE pending Hyponatremia, mild asymptomatic Suspect increase in total body water Lasix as above BMP daily COPD Continue Breo Continue Spiriva Oxygen as needed, currently satting well on room air Hypertension Continue metoprolol succinate 50 mg p.o. daily GERD Convert omeprazole to Protonix 20 mg twice daily Hypomagnesemia [employer] Mag-Ox held while n.p.o. IV mag 2g concentrated DVT prophylaxis: Apixaban as above Diet: N.p.o. Disposition: Med telemetry. (2) Chronic hyponatremia: (3) Mitral regurgitation: (4) Peripheral neuropathy: (5) Emphysema lung: (6) Glaucoma: (7) Anticoagulant long-term use: (8) Factor V Leiden mutation: (9) Gait disturbance, post-stroke: (10) Paroxysmal atrial fibrillation: (11) Hypertension: History of Present Illness Chief Complaint: Abdominal pain Primary Care Provider: Ayad Lozano MD Erik Forrest is an 84-year-old male with a past medical history of factor V Leiden, hypertension, sensorineural hearing loss, emphysema, glaucoma, sensory ataxia/post stroke gait disturbance, A. fib, and wet macular degeneration who presents with approximately 2 days of increased upper abdominal pain. Patient reports that he has chronic pain due to disc disease and a fall to his ribs over [place], but that his pain was acutely worsened about 2 days ago. His appetite has decreased over this time. He is not sure if food worsens his pain. He endorses abdominal distention. He is also had increased leg swelling in the last 2 days. He denies shortness of breath, chest pain, and chest pressure. He says he has an intermittent cough at baseline due to emphysema but that this has not changed. He denies fever and chills. Denies diarrhea, melena, and bright red blood per rectum. He endorses a history of drug-induced lupus. He was diagnosed on March 25 and it is thought to be secondary to hydrochlorothiazide which caused him to develop a butterfly rash and diffuse body rash last May with acute decrease in his blood pressure to the 80s. He follows with Dr. Tipton for hypertension and A. fib, has discontinued hydrochlorothiazide and now takes metoprolol. He has a family history of multiple of blood clots and a personal history of fa ctor V Leiden for which he is anticoagulated with apixaban. Medical history: Reviewed Surgical history: Reviewed Allergies: Reviewed. Of note HCTZ induced cutaneous lupus. Medications: Reviewed, last taken evening prior to ER visit CODE STATUS: Full code Allergies Allergy/AdvReac Type Severity Reaction Status Date / Time ketorolac Allergy Unknown . 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 Dust Mite Extract Allergy Unknown seasonal Uncoded 04/23/20 23:47 type allergies Home Medications Home Medications Medication Instructions Recorded Confirmed Type apixaban 5 mg tablet 5 mg PO BID #180 tab 05/26/19 04/24/20 Rx cetirizine 10 mg tablet 10 mg PO DAILY tab 07/30/19 04/24/20 History cholecalciferol (vitamin D3) 25 1,000 units PO DAILY tab 07/30/19 04/24/20 History mcg (1,000 unit) tablet multivitamin 1 tab PO DAILY tab 07/30/19 04/24/20 History bimatoprost 0.01 % eye drops 1 drops OP QPM 09/15/19 04/24/20 History polyvinyl alcohol 1.4 % eye drops 1 drops OP DAILY 09/15/19 04/24/20 History atorvastatin 10 mg PO HS 11/04/19 04/24/20 History fluticasone propionate 50 2 sprays INTRANASAL DAILY PRN #48 11/20/19 04/24/20 Rx mcg/actuation nasal gm spray,suspension magnesium oxide 400 mg (241.3 mg 400 mg PO BID #180 tab 12/02/19 04/24/20 Rx magnesium) tablet tamsulosin 0.4 mg capsule 0.4 mg PO HS #90 cap 12/02/19 04/24/20 Rx tiotropium bromide 18 mcg capsule 18 mcg INHALATION DAILY #90 puffs 12/02/19 04/24/20 Rx with inhalation device omeprazole 10 mg capsule,delayed 20 mg PO BID #360 cap 12/04/19 04/24/20 Rx release emollient 1 appln TOP DAILY gm 12/29/19 04/24/20 History mineral oil-hydrophil petrolat 1 appln TOP DAILY gm 12/29/19 04/24/20 History triamcinolone acetonide 0.1 % 1 appln TOP DAILY 12/29/19 04/24/20 History topical cream metoprolol tartrate 25 mg tablet 25 mg PO DAILY PRN #30 tab 01/13/20 04/24/20 Rx fluticasone furoate 100 1 puffs INH DAILY #60 ea 03/07/20 04/24/20 Rx mcg-vilanterol 25 mcg/dose inhalation powder lorazepam 0.5 mg tablet 0.5 mg PO .COMPLEX PRN #2 tab 05/21/20 05/31/20 Rx metoprolol succinate 50 mg PO DAILY 04/24/20 04/24/20 History Past Med/Surg History Medical History Anemia (Chronic) Anticoagulant long-term use (Chronic) 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) Carotid artery plaque (Resolved) Chronic hyponatremia (Chronic) Closed head injury (Inactive) Congenital nystagmus Drug-induced lupus erythematosus Emphysema lung (Chronic) Factor V Leiden mutation (Chronic) Gait disturbance, post-stroke (Chronic) Glaucoma (Chronic) Hyperlipidemia (Chronic) Hypertension (Chronic) Mitral regurgitation (Chronic) 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 Unknown Heart disease Hypertension Pulmonary embolism Sister No problems noted. Denies family history of Ovarian cancer Prostate cancer Diabetes Breast cancer Social History Preferred Language: Serbian Communication Ability: Effective Visual Impairment: No Limitations Hearing Ability: Use of Hearing Aid Beliefs That Will Affect Care: None marital status: / Current Living Situation: Alone current occupational status: retired Other Information That Helps Us Care for You: No Feels Safe at Home: Yes Safety Concerns: Feels Safe At This Time Smoking Status: Never smoker Hx Alcohol Use: Yes Alcohol type: beer Alcohol Intake Frequency: Daily Hx Substance Use: No Childhood Exposure to Second-Hand Smoke: Yes caffeine: Yes Dental Care, Regularly: No Physical Activity Frequency: Does not Exercise Seatbelt Use: always Sunscreen Use: Yes Review of Systems Review of Systems: Constitutional: Denies fever, chills. Endorses getting cold easily Eyes: Endorses chronic wet macular degeneration, otherwise denies acute double vision, vision change, eye pain ENT: Denies ear pain, sore throat, sinus pain. Endorses 90% hearing loss in right ear. Cardiovascular: Denies Chest pain, chest pressure, palpitations. Endorses extremity swelling. Respiratory: Denies shortness of breath, sputum production, difficulty breathing. See HPI for cough. Gastrointestinal: See HPI Genitourinary: Denies pain with urination, urinary urgency, urinary frequency Musculoskeletal: Denies acute weakness Integumentary: Endorses diffuse lupus rash and easy bruising 2/2 DOAC. Physical Exam Physical Exam: General: A&Ox3. NAD. Cooperative. HEENT: Atraumatic, normocephalic. Hearing greatly diminished in right ear. Visual acuity grossly intact, patient with decreased acuity at baseline 2/2 macular degeneration. Extraocular movements intact without nystagmus. Pupils equal and responsive to light and accommodation. No facial asymmetry. Pulm: Trace scattered expiratory wheezes. No rales. No rhonchi. Patient appears mildly dyspneic (just ambulated from bathroom, baseline per emphysema per patient) but with no acute respiratory distress. Cardiac: Irregularly irregular. Radial pulses intact and symmetrical. Abdominal: Distended, tympanitic. Mild right upper quadrant tenderness to palpation. No rebound tenderness. Nonrigid. Bowel sounds intact. Extremities: Moving all extremities equally. Radiology Manager strength, ankle dorsiflexion/plantar flexion, hip flexion, elbow flexion/extension intact. Patient endorses some neuropathy but with sensation to soft touch intact in fingertips bilaterally. Diffuse cutaneous rash and easy bruising appreciated on upper and lower extremities without tense or localized hematoma. Pitting edema present through the knee bilaterally right worse than left. Results & Data Results & Data ([facility]) Vital Signs (Past 12 Hours) Vital Signs Temp Pulse Pulse Resp BP BP Pulse Ox 04/24/20 02:00 101 H 20 149/94 H 96 04/24/20 01:03 92 H 18 161/105 H 94 04/23/20 23:26 37.1 C 109 H 18 177/102 H 97 Supervising Physician Co-Signing Physician Notes Attending addendum: I have physically seen this patient, have supervised the medical residents activities, and agree with the H&P unless as otherwise noted. Assessment and Plan: Acute right upper quadrant pain/abnormal liver function tests- CT abdomen and pelvis shows moderately distended gallbladder. Suspected cholelithiasis. Ceftriaxone 1 g IV daily MRCP ordered and pending. N.p.o. except medications Consult gastroenterology Dr. Alfaro. Morphine IV as needed severe pain. Atrial fibrillation/factor V Leiden- Hold apixaban for possible procedure in a.m. May need to start heparin IV in a.m. Continue metoprolol with hold parameters. Optimize magnesium with 2 g IV. COPD- Continue Breo, Spiriva and nasal cannula oxygen, titrate to keep pulse ox 94%. Remaining orders and notations as noted. Resident Activity Tracking Resident Involvement: Resident Care Provided Care Provided: Adult Hospital Medicine (1) Peripheral neuropathy Peripheral neuropathy type: polyneuropathy, unspecified Qualified Code(s): G62.9 - Polyneuropathy, unspecified (2) Emphysema lung Emphysema type: panlobular Qualified Code(s): J43.1 - Panlobular emphysema
[2020-04-24 03:58] LABS: Appearance Urine Clear (Clear); Bilirubin Urine Negative (Negative); Blood Urine Negative (Negative); Color Urine Yellow; Glucose Urine UA Negative (Negative); Ketones Urine Negative (Negative); Leukocyte Esterase Urine Negative (Negative); Nitrite Urine Negative (Negative); Protein Urine Negative (Negative); Specific Gravity Urine 1.037 (1.000-1.030); Urobilinogen Urine Negative (Negative); pH Urine 8.5 (4.5-7.5)
[2020-04-24] MEDS ORDERED: METOPROLOL TARTRATE 25 MG TAB PO PRN (05:49)
[2020-04-24] MEDS ORDERED: FUROSEMIDE 40 MG/4 ML VIAL IV STA (05:49)
[2020-04-24] MEDS ORDERED: MoRPHine SULFATE 2 MG/ML CARP IV PRN ×2 (05:49→05:57)
[2020-04-24] MEDS ORDERED: FLUTICASONE PROPIONATE NA SPR 16 GM BTL PRN (05:49)
[2020-04-24] MEDS ORDERED: MAGNESIUM SULFATE / D5W 1 GM/100 ML BAG IV STA (05:49)
[2020-04-24] MEDS ORDERED: LORazepam 0.5 MG TAB PO PRN (05:49)
[2020-04-24] MEDS ORDERED: ACETAMINOPHEN 325 MG TAB PO PRN (05:49)
[2020-04-24] MEDS ORDERED: MAGNESIUM SULFATE 50% 2 GM in DEXTROSE 5% 100 ML IV ONE (06:00)
[2020-04-24] MEDS ORDERED: FUROSEMIDE 40 MG in SYRINGE 0 ML IV ONE (06:00)
--- NOTE | 2020-04-24 07:33 | CT Scan Report ---
CT abd pelvis IV con only CLINICAL HISTORY: diffuse upper abdominal pain, swelling BLOATING COMPARISON STUDY: November 04, 2019 TECHNIQUE: The patient was scanned in a dynamic helical fashion during intravenous administration of 94 cc of Optiray 320 A dose lowering technique was utilized adhering to the principles of ALARA. CT DOSE: 642.30 mGy.cm FINDINGS: Lower chest: There is dependent atelectasis/scarring. There is a left lower lobe bleb. Liver: The contrast-enhanced liver is normal in size, contour, and attenuation. There is no intrahepa tic biliary ductal dilatation. The hepatic veins and portal veins are patent. Gallbladder: There is borderline gallbladder wall thickening. There is cholelithiasis. There is borde rline common bile duct wall thickening. Spleen: Normal in size and attenuation. Pancreas: Unremarkable. Adrenal glands: Unremarkable. Kidneys: There is symmetric renal cortical enhancement. The kidneys are normal in size without hydron ephrosis. Bowel: There are no transition zones to indicate bowel obstruction. There is no evidence of acute div erticulitis. There are scattered colonic diverticula present. There are no findings to indicate acute appendicitis. Peritoneum: There is no intraperitoneal free air or abdominal ascites. There are small fat-containing inguinal hernias. Vasculature: There is an infrarenal 3 cm infrarenal abdominal aortic aneurysm. There are aortoiliac a theromatous changes. Adenopathy: None. Pelvic viscera: There is mild prostatomegaly Skeletal structures: There is an old L1 compression fracture. IMPRESSION: 1. No evidence of bowel obstruction. No evidence of free air 2. Diverticulosis. No evidence of acute diverticulitis 3. No evidence of acute appendicitis 4. 3 cm infrarenal abdominal aortic aneurysm 5. Cholelithiasis, borderline gallbladder wall thickening, and borderline common bile duct wall thick ening. ACT 112: Negative or not required by law. Electronically signed by: Esteban So M.D. 04/24/2020 7:32 AM
--- NOTE | 2020-04-24 07:42 | XRay Report ---
XR chest 1V portable CLINICAL HISTORY: leg swelling, SoB COMPARISON STUDY: 11/04/2019 FINDINGS: The heart is borderline enlarged. There are mild chronic interstitial changes. There is no failure. There is no acute parenchymal consolidation. There is no failure.[ IMPRESSION: No active disease in the chest. ACT 112: Negative or not required by law. Electronically signed by: Esteban So M.D. 04/24/2020 7:41 AM
[2020-04-24] MEDS ORDERED: PERFLUTREN LIPID MICROSPHERE (DEFINITY) IV ONE (07:47)
--- NOTE | 2020-04-24 07:53 | Magnetic Resonance Report ---
Study: MRCP HISTORY: Pain. Nausea. FINDINGS: Mild fatty replacement of the liver. Pancreas and spleen are unremarkable. Gallbladder demonstrates several small gallstones combined with a small amount of gallbladder sludge. The MRCP component of the study is of limited diagnostic utility due to respiratory and somatic lorelei on. No gross evidence for choledocholithiasis. IMPRESSION: 1. Limited study due to patient respiratory and somatic motion. 2. Fatty replacement of the liver. 3. Small number of gallstones as well as a small amount of sludge within the gallbladder neck region. 4. Normal biliary ductal system within limitations of patient motion. Electronically signed by: Yash Martinez M.D. 04/24/2020 7:52 AM
[2020-04-24] MEDS ORDERED: MINERAL OIL HYDROPHIL PETROLAT TOP SCH (09:00)
[2020-04-24] MEDS ORDERED: APIXABAN 5 MG TABLET PO SCH (09:00)
[2020-04-24] MEDS: ONDANSETRON INJ 2 MG/ML 2 ML VIAL IV PRN ×2 (09:43→16:56)
--- NOTE | 2020-04-24 09:44 | XCELERA ---
[id number]
[2020-04-24] MEDS: FLUTICASONE/VILANTEROL 100/25MCG 14 PUFFS/INHALER INH SCH (09:46)
[2020-04-24] MEDS: ARTIFICIAL TEARS OP SCH (09:46)
[2020-04-24] MEDS: UMECLIDINIUM BROMIDE 62.5MCG/BLISTER 7 PUFFS/INHALER INH SCH (09:47)
[2020-04-24] MEDS: MULTIVITAMIN TAB PO SCH (09:48)
[2020-04-24] MEDS: PANTOprazole 40 MG TAB PO SCH ×2 (09:48→20:44)
[2020-04-24] MEDS: MAGNESIUM OXIDE 400 MG TAB PO SCH ×2 (09:48→20:45)
[2020-04-24] MEDS: TRIAMCINOLONE ACET 0.1% CR 15 GM TUBE TOP SCH (09:48)
[2020-04-24] MEDS: METOPROLOL SUCC 50MG EXT REL TAB PO SCH (09:49)
[2020-04-24] MEDS: CETIRIZINE HCL 10 MG TABLET PO SCH (09:50)
--- NOTE | 2020-04-24 10:14 | Family Medicine Progress Note ---
Date of Service April 24, 2020 Assessment & Plan (1) Elevated liver function tests: 84 yo M PMHx Factor V Leiden, HTN, sensorineural hearing loss, emphysema, glaucoma, sensory ataxia/post stroke gait disturbance, AFib, and wet macular degeneration admitted for concern for cholelithiasis / cholecystitis. Acute right upper quadrant abdominal pain with elevated liver function tests suspicious for cholelithiasis: CTAP done which showed cholelithiasis, borderline gallbladder wall thickening, and borderline common bile duct wall thickening. AST 106, ALT 132, alkaline phosphatase 294, lipase normal. Elevations consistent with biliary source. Suspect cholelithiasis/cholecystitis. MRCP limited due to motion, however gallbladder with some sludge and gallstones. GI and General Surgery consulted; GI will perform ERCP Saturday. NPO, increased morphine dose to 4mg IV q4h due to increased pain. Will consider PCI of pain not well controlled. Zofran added for nausea. - Eliquis held this AM for possible ERCP/cholecystectomy. Can have ERCP 72 hours after Eliquis held (last dose 04/23). - D5 1/2NSS with KCl 20meq @ 100mL/hr. Chronic back pain: Patient with morphine for abdominal pain as above. Heating K pad ordered. - Reports a recent history of T6 fracture without fall, which could suggest osteoporosis. History of A. fib with factor V Leiden: Holding Eliquis for procedure Saturday. Metoprolol as below. Bilateral lower extremity edema: - Worsened since not being able to be on hydrochlorothiazide. Lasix 40 mg IV given once with improvement in LE swelling. Still with some fluid overload in legs, but no signs of lung involvement. Troponin normal. CXR with no acute process. TTE with normal LVEF, no valvular abnormalities. - Repeat BMP tomorrow, consider repeat Lasix IV if continued peripheral edema and if Na no better. - Encouraged MONA compression stockings and ambulation as tolerated. Hyponatremia, mild asymptomatic: Suspect increase in total body water. Lasix as above. BMP daily. COPD: Continue Breo. Continue Spiriva. Oxygen as needed, currently satting well on room air. Hypertension: Continue metoprolol succinate 50 mg p.o. daily. - Can consider further antihypertensive medications if BP >180/110 consistently. - HTN in this setting likely 2/2 significant pain. GERD: Convert omeprazole to Protonix 20 mg twice daily for formulary. Hypomagnesemia: [employer] Mag-Ox held while n.p.o. IV Mg 2g given overnight. Code Status: FULL CODE DVT prophylaxis: Hold in setting of procedure Saturday; SCDs Diet: NPO, D5 1/2NSS with KCl 20meq @ 100mL/hr Disposition: Med/Surg with Telemetry Vikki Benson, Resident PGY-1 Pager # [phone] (2) Chronic hyponatremia: (3) Mitral regurgitation: (4) Peripheral neuropathy: (5) Emphysema lung: (6) Glaucoma: (7) Anticoagulant long-term use: (8) Factor V Leiden mutation: (9) Gait disturbance, post-stroke: (10) Paroxysmal atrial fibrillation: (11) Hypertension: Admission and Anticipated Discharge Date Admission Date: April 24, 2020 Supervising Physician Co-Signing Physician Notes I personally examined the patient and verified all mcdermott points of history and exam, discussed case, and agree with decision making with Dr Dunn. feeling ok as far as abdominal pain - main complaint now is actually neck pain due to arthritis. d/w surgery and GI. vitals noted nad heent nc at mmm breathing unlabored no accessory muscles good effort skin no rashes no pallor or icterus choledocholithiasis - stopped eliquis, for ERCP/gloria on saturday unless situation changes. serial exams, serial labs, supportive care neck pain - arthritic - trial of voltaren gel afib/V leiden/anticoagulation - for now has to be on hold, anticoagulation interrupted for a short enough time that something like lovenox in between likely not to be beneficial - but will want to resume anticoagulation as soon as possible postop otherwise as above Subjective With no change in abdominal pain overnight. Radiates to mid R back. Now with associated nausea with dry heaving. No fevers or chills. No SOB, CP, diarrhea or constipation. Today he told me that for about 3 weeks he was taking 1000mg Tylenol q8h every day, and with his evening dose would have 1-2 Cranberry vodkas with it. He confirmed that he normally has about 2 alcoholic beverages a night. Last drink two days ago. No tremors, palpitations, visual/auditory/tactile hallucinations, headaches, sweating, anxiety or agitation. Review of Systems Constitutional: + malaise; no fever and no chills Respiratory: no cough, no dyspnea and no wheezing Cardiovascular: + edema; no chest pain and no palpitations Gastrointestinal: + abdominal pain and + nausea; no constipation and no diarrhea/loose stools Genitourinary: + urinary frequency (since getting IV Lasix); no dysuria and no hematuria Neurologic: no tremor(s), no headache(s) and no confusion Psychiatric: no anxiety Physical Exam Constitutional: WD/WN, vitals as above Respiratory: normal respiratory effort, lungs clear to auscultation Cardiovascular: HR irregularly irregular, no murmurs Gastrointestinal (Abdomen): Inspection/Auscultation: + abdomen distended and normal bowel sounds Percussion/Palpation: + abdomen tender (diffusely); no guarding, abdomen not rigid and no ascites Skin: no rashes, warm and dry Psychiatric: A+Ox3, euthymic affect Results & Data ([facility]) Vital Signs (Past 12 Hours) Vital Signs Temp Pulse Pulse Pulse Resp BP BP 04/24/20 08:04 36.9 C 100 H 18 126/81 04/24/20 07:52 94 H 04/24/20 05:24 37 C 104 H 20 175/95 H 04/24/20 03:43 94 H 20 142/98 H 04/24/20 02:00 101 H 20 149/94 H 04/24/20 01:03 92 H 18 161/105 H 04/23/20 23:26 37.1 C 109 H 18 177/102 H Pulse Ox 04/24/20 08:04 97 04/24/20 07:52 04/24/20 05:24 97 04/24/20 03:43 97 04/24/20 02:00 96 04/24/20 01:03 94 04/23/20 23:26 97 Resident Activity Tracking Resident Involvement: Resident Care Provided Care Provided: Adult Hospital Medicine (1) Peripheral neuropathy Peripheral neuropathy type: polyneuropathy, unspecified Qualified Code(s): G62.9 - Polyneuropathy, unspecified (2) Emphysema lung Emphysema type: panlobular Qualified Code(s): J43.1 - Panlobular emphysema
--- NOTE | 2020-04-24 10:46 | Surgery Consultation ---
Date of Consultation April 24, 2020 Assessment & Plan (1) Elevated liver function tests: This is an 84y M with a PMH of Factor V Leiden on eliquis, pAfib, HLD, HTN who presents to the [facility] ED on 04/23/20 with abdominal pain. Patient was found to have elevated LFTs on admission and imaging findings consistent with gallstones & sludge with borderline CBD wall thickening. Agree with a GI consultation for consideration of an ERCP. Would hold patient's eliquis for now for possible upcoming procedures. Pending GI thoughts we will discuss plans for possible lap gloria pending patient's wishes and weighing risks/benefits of procedure due to patient's medical issues. Pt seen and examined with Dr. Petit. as above. pt seen. appears comfortable and non-septic. likely passing a CBD stone. no evidence of acute cholecystitis awaiting GI consult. after stone passes or after ERCP will need to weigh risk benefit of lap gloria vs conservative treatment and accepting risk of recurrent CBD stone would hold Eliquis will continue to follow along. History of Present Illness Attending Physician: Shankar Irwin, DO History of Present Illness This is an 84y M with a PMH of Factor V Leiden on eliquis, pAfib, HLD, HTN who presents to the [facility] ED on 04/23/20 with abdominal pain. Patient reports an increase in upper abdominal pain over the past couple of days he initially th ought was heart burn. The pain progressed with prompted the patient to come to the ED for evaluation. In the ED patient underwent a CT a/p that revealed cholelithiasis, borderline gallbladder wall thickening, and borderline common bile duct wall thickening. His LFTs were elevated at Tbili: 2.4, ALT: 106, Dbili: 1.3, ALT 132, and alkp: 294. He subsequently underwent an MRCP which revealed a small number of gallstones as well as a small amount of sludge within the gallbladder neck region & a normal biliary ductal system within limitations of patient motion. Past abdominal history includes and abdominal hernia repair. Patient was admitted under the medicine service with GI and surgical consultations placed. Allergies Allergy/AdvReac Type Severity Reaction Status Date / Time ketorolac Allergy Unknown . 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 Dust Mite Extract Allergy Unknown seasonal Uncoded 04/23/20 23:47 type allergies Home Medications Home Medications Medication Instructions Recorded Confirmed Type apixaban 5 mg tablet 5 mg PO BID #180 tab 05/26/19 04/24/20 Rx cetirizine 10 mg tablet 10 mg PO DAILY tab 07/30/19 04/24/20 History cholecalciferol (vitamin D3) 25 1,000 units PO DAILY tab 07/30/19 04/24/20 History mcg (1,000 unit) tablet multivitamin 1 tab PO DAILY tab 07/30/19 04/24/20 History bimatoprost 0.01 % eye drops 1 drops OP QPM 09/15/19 04/24/20 History polyvinyl alcohol 1.4 % eye drops 1 drops OP DAILY 09/15/19 04/24/20 History atorvastatin 10 mg PO HS 11/04/19 04/24/20 History fluticasone propionate 50 2 sprays INTRANASAL DAILY PRN #48 11/20/19 04/24/20 Rx mcg/actuation nasal gm spray,suspension magnesium oxide 400 mg (241.3 mg 400 mg PO BID #180 tab 12/02/19 04/24/20 Rx magnesium) tablet tamsulosin 0.4 mg capsule 0.4 mg PO HS #90 cap 12/02/19 04/24/20 Rx tiotropium bromide 18 mcg capsule 18 mcg INHALATION DAILY #90 puffs 12/02/19 04/24/20 Rx with inhalation device omeprazole 10 mg capsule,delayed 20 mg PO BID #360 cap 12/04/19 04/24/20 Rx release emollient 1 appln TOP DAILY gm 12/29/19 04/24/20 History mineral oil-hydrophil petrolat 1 appln TOP DAILY gm 12/29/19 04/24/20 History triamcinolone acetonide 0.1 % 1 appln TOP DAILY 12/29/19 04/24/20 History topical cream metoprolol tartrate 25 mg tablet 25 mg PO DAILY PRN #30 tab 01/13/20 04/24/20 Rx fluticasone furoate 100 1 puffs INH DAILY #60 ea 03/07/20 04/24/20 Rx mcg-vilanterol 25 mcg/dose inhalation powder lorazepam 0.5 mg tablet 0.5 mg PO .COMPLEX PRN #2 tab 04/14/20 04/24/20 Rx metoprolol succinate 50 mg PO DAILY 04/24/20 04/24/20 History Patient History Medical History Anemia (Chronic) Anticoagulant long-term use (Chronic) 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) Carotid artery plaque (Resolved) Chronic hyponatremia (Chronic) Closed head injury (Inactive) Congenital nystagmus Drug-induced lupus erythematosus Emphysema lung (Chronic) Factor V Leiden mutation (Chronic) Gait disturbance, post-stroke (Chronic) Glaucoma (Chronic) Hyperlipidemia (Chronic) Hypertension (Chronic) Mitral regurgitation (Chronic) 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 Unknown Heart disease Hypertension Pulmonary embolism Sister No problems noted. Denies family history of Ovarian cancer Prostate cancer Diabetes Breast cancer Social History Preferred Language: [place] Islander Communication Ability: Effective Visual Impairment: No Limitations Hearing Ability: Use of Hearing Aid Beliefs That Will Affect Care: None marital status: / Current Living Situation: Alone current occupational status: retired Other Information That Helps Us Care for You: No Feels Safe at Home: Yes Safety Concerns: Feels Safe At This Time Smoking Status: Never smoker Hx Alcohol Use: Yes Alcohol type: beer Alcohol Intake Frequency: Daily Hx Substance Use: No Childhood Exposure to Second-Hand Smoke: Yes caffeine: Yes Dental Care, Regularly: No Physical Activity Frequency: Does not Exercise Seatbelt Use: always Sunscreen Use: Yes Review of Systems Gastrointestinal: + abdominal pain and + heartburn Physical Exam Physical Exam: awake/alert Gastrointestinal (Abdomen): Percussion/Palpation: + abdomen tender (some epigastric ttp) and abdomen soft; no guarding Results & Data Vital Signs (Past 12 Hours) Vital Signs Temp Pulse Pulse Pulse Resp BP BP 04/24/20 08:04 36.9 C 100 H 18 126/81 04/24/20 07:52 94 H 04/24/20 05:24 37 C 104 H 20 175/95 H 04/24/20 03:43 94 H 20 142/98 H 04/24/20 02:00 101 H 20 149/94 H 04/24/20 01:03 92 H 18 161/105 H 04/23/20 23:26 37.1 C 109 H 18 177/102 H Pulse Ox 04/24/20 08:04 97 04/24/20 07:52 04/24/20 05:24 97 04/24/20 03:43 97 04/24/20 02:00 96 04/24/20 01:03 94 04/23/20 23:[address] abd pelvis IV con only CLINICAL HISTORY: diffuse upper abdominal pain, swelling BLOATING COMPARISON STUDY: November 04, 2019 TECHNIQUE: The patient was scanned in a dynamic helical fashion during intravenous administration of 94 cc of Optiray 320 A dose lowering technique was utilized adhering to the principles of ALARA. CT DOSE: 642.30 mGy.cm FINDINGS: Lower chest: There is dependent atelectasis/scarring. There is a left lower lobe bleb. Liver: The contrast-enhanced liver is normal in size, contour, and attenuation. There is no intrahepatic biliary ductal dilatation. The hepatic veins and portal veins are patent. Gallbladder: There is borderline gallbladder wall thickening. There is cholelithiasis. There is borderline common bile duct wall thickening. Spleen: Normal in size and attenuation. Pancreas: Unremarkable. Adrenal glands: Unremarkable. Kidneys: There is symmetric renal cortical enhancement. The kidneys are normal in size without hydronephrosis. Bowel: There are no transition zones to indicate bowel obstruction. There is no evidence of acute diverticulitis. There are scattered colonic diverticula present. There are no findings to indicate acute appendicitis. Peritoneum: There is no intraperitoneal free air or abdominal ascites. There are small fat-containing inguinal hernias. Vasculature: There is an infrarenal 3 cm infrarenal abdominal aortic aneurysm. There are aortoiliac atheromatous changes. Adenopathy: None. Pelvic viscera: There is mild prostatomegaly Skeletal structures: There is an old L1 compression fracture. IMPRESSION: 1. No evidence of bowel obstruction. No evidence of free air 2. Diverticulosis. No evidence of acute diverticulitis 3. No evidence of acute appendicitis 4. 3 cm infrarenal abdominal aortic aneurysm 5. Cholelithiasis, borderline gallbladder wall thickening, and borderline common bile duct wall thickening. ACT 112: Negative or not required by law. Electronically signed by: Esteban So M.D. 04/24/2020 7:32 AM Study: MRCP HISTORY: Pain. Nausea. FINDINGS: Mild fatty replacement of the liver. Pancreas and spleen are unremarkable. Gallbladder demonstrates several small gallstones combined with a small amount of gallbladder sludge. The MRCP component of the study is of limited diagnostic utility due to respiratory and somatic motion. No gross evidence for c holedocholithiasis. IMPRESSION: 1. Limited study due to patient respiratory and somatic motion 2. Fatty replacement of the liver. 3. Small number of gallstones as well as a small amount of sludge within the gallbladder neck region. 4. Normal biliary ductal system within limitations of patient motion. Electronically signed by: Yash Martinez M.D. 04/24/2020 7:52 AM PG Care Time/CCT Total # of Minutes Spent Total Time Spent with Patient: Total time spent is greater than 50% in coordination of care (as documented) at patient's floor/unit and/or counseling patient: Coding Level of Care Code 75187 Initial Inpt Care Lvl 3 Diagnoses Elevated liver function tests R79.89
--- NOTE | 2020-04-24 12:30 | Gastrointestinal Consultation ---
Date of Consultation April 24, 2020 Assessment & Plan (1) Elevated liver function tests: Suspect the pain and increase LFTS are from choledocolithiasis. Recommend ERCP, followed by cholecystectomy. Need to be off Eliquis for three days though. Keep NPO with pain control for now. n plan after re evaluation on Saturday/Saturday. If Lfts completely clear, may consider cholecystectomy first. Multiple medical issue need to be considered also, recent diagnosis of a spinal fracture. Present on Admission?: Yes History of Present Illness Reason for Consultation: abdominal pain, increased LFTa Attending Physician: Shankar Irwin DO History of Present Illness Patient admitted with RUQ/Epi abdominal pain. found to have increased LFTS. Previously in January had abnormal Lfts , concern raised for lupus hepatitis. He has had recurrent episodes of abdominal pain. This time the pain penetrated to his back. He is on a blood thinner. Prior CT showed gall stones. CT from yesterday, concerning for a stone in the CBD with mild CBD thickness. MRCP poor quality due to movement Allergies Allergy/AdvReac Type Severity Reaction Status Date / Time ketorolac Allergy Unknown . 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 Dust Mite Extract Allergy Unknown seasonal Uncoded 04/23/20 23:47 type allergies Home Medications Home Medications Medication Instructions Recorded Confirmed Type apixaban 5 mg tablet 5 mg PO BID #180 tab 05/26/19 04/24/20 Rx cetirizine 10 mg tablet 10 mg PO DAILY tab 07/30/19 04/24/20 History cholecalciferol (vitamin D3) 25 1,000 units PO DAILY tab 07/30/19 04/24/20 History mcg (1,000 unit) tablet multivitamin 1 tab PO DAILY tab 07/30/19 04/24/20 History bimatoprost 0.01 % eye drops 1 drops OP QPM 09/15/19 04/24/20 History polyvinyl alcohol 1.4 % eye drops 1 drops OP DAILY 09/15/19 04/24/20 History atorvastatin 10 mg PO HS 11/04/19 04/24/20 History fluticasone propionate 50 2 sprays INTRANASAL DAILY PRN #48 11/20/19 04/24/20 Rx mcg/actuation nasal gm spray,suspension magnesium oxide 400 mg (241.3 mg 400 mg PO BID #180 tab 12/02/19 04/24/20 Rx magnesium) tablet tamsulosin 0.4 mg capsule 0.4 mg PO HS #90 cap 12/02/19 04/24/20 Rx tiotropium bromide 18 mcg capsule 18 mcg INHALATION DAILY #90 puffs 12/02/19 04/24/20 Rx with inhalation device omeprazole 10 mg capsule,delayed 20 mg PO BID #360 cap 12/04/19 04/24/20 Rx release emollient 1 appln TOP DAILY gm 12/29/19 04/24/20 History mineral oil-hydrophil petrolat 1 appln TOP DAILY gm 12/29/19 04/24/20 History triamcinolone acetonide 0.1 % 1 appln TOP DAILY 12/29/19 04/24/20 History topical cream metoprolol tartrate 25 mg tablet 25 mg PO DAILY PRN #30 tab 01/13/20 04/24/20 Rx fluticasone furoate 100 1 puffs INH DAILY #60 ea 03/07/20 04/24/20 Rx mcg-vilanterol 25 mcg/dose inhalation powder lorazepam 0.5 mg tablet 0.5 mg PO .COMPLEX PRN #2 tab 04/14/20 04/24/20 Rx metoprolol succinate 50 mg PO DAILY 04/24/20 04/24/20 History Patient History Medical History Anemia (Chronic) Anticoagulant long-term use (Chronic) 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) Carotid artery plaque (Resolved) Chronic hyponatremia (Chronic) Closed head injury (Inactive) Congenital nystagmus Drug-induced lupus erythematosus Emphysema lung (Chronic) Factor V Leiden mutation (Chronic) Gait disturbance, post-stroke (Chronic) Glaucoma (Chronic) Hyperlipidemia (Chronic) Hypertension (Chronic) Mitral regurgitation (Chronic) 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 Unknown Heart disease Hypertension Pulmonary embolism Sister No problems noted. Denies family history of Ovarian cancer Prostate cancer Diabetes Breast cancer Social History Preferred Language: Maltese Communication Ability: Effective Visual Impairment: No Limitations Hearing Ability: Use of Hearing Aid Beliefs That Will Affect Care: None marital status: / Current Living Situation: Alone current occupational status: retired Other Information That Helps Us Care for You: No Feels Safe at Home: Yes Safety Concerns: Feels Safe At This Time Smoking Status: Never smoker Hx Alcohol Use: Yes Alcohol type: beer Alcohol Intake Frequency: Daily Hx Substance Use: No Childhood Exposure to Second-Hand Smoke: Yes caffeine: Yes Dental Care, Regularly: No Physical Activity Frequency: Does not Exercise Seatbelt Use: always Sunscreen Use: Yes Review of Systems Review of Systems: Constitutional: Denies fever, chills. Endorses getting cold easily Eyes: Endorses chronic wet macular degeneration, otherwise denies acute double vision, vision change, eye pain ENT: Denies ear pain, sore throat, sinus pain. Endorses 90% hearing loss in right ear. Cardiovascular: Denies Chest pain, chest pressure, palpitations. Endorses extremity swelling. Respiratory: Denies shortness of breath, sputum production, difficulty breathing. See HPI for cough. Gastrointestinal: See HPI Genitourinary: Denies pain with urination, urinary urgency, urinary frequency Musculoskeletal: Denies acute weakness Integumentary: Endorses diffuse lupus rash and easy bruising 2/2 DOAC. Constitutional: + malaise; no fever and no chills Cardiovascular: + edema; no chest pain and no palpitations Gastrointestinal: + abdominal pain and + nausea; no constipation and no diarrhea/loose stools Genitourinary: + urinary frequency (since getting IV Lasix); no dysuria and no hematuria Physical Exam Physical Exam: General: A&Ox3. NAD. Cooperative. HEENT: Atraumatic, normocephalic. Hearing diminished . No facial asymmetry. Cardiac: Irregularly irregular. Radial pulses intact and symmetrical. Abdominal: Distended, tympanitic. Mild right upper quadrant tenderness to palpation. No hepatomegaly or other masses. No rebound tenderness. Nonrigid. Bowel sounds intact. Extremities: Diffuse cutaneous rash and easy bruising appreciated on upper and lower extremities. Edema bilaterally right worse than left. Constitutional: WD/WN, vitals as above Respiratory: normal respiratory effort, lungs clear to auscultation Gastrointestinal (Abdomen): Inspection/Auscultation: + abdomen distended and normal bowel sounds Percussion/Palpation: + abdomen tender (diffusely) and abdomen soft; no guarding, abdomen not rigid and no ascites Skin: no rashes, warm and dry Psychiatric: A+Ox3, euthymic affect Results & Data ([facility]) Vital Signs (Past 12 Hours) Vital Signs Temp Pulse Pulse Pulse Resp BP Pulse Ox 04/24/20 08:04 36.9 C 100 H 18 126/81 97 04/24/20 07:52 94 H 04/24/20 05:24 37 C 104 H 20 175/95 H 97 04/24/20 03:43 94 H 20 142/98 H 97 04/24/20 02:00 101 H 20 149/94 H 96 04/24/20 01:03 92 H 18 161/105 H 94
[2020-04-24] MEDS: D5W AND 1/2NSS + 20MEQ KCL 20 MEQ/1,000 ML BAG IV SCH (13:44)
--- NOTE | 2020-04-24 16:06 | Billing Data ---
Date of Service April 24, 2020 Coding Level of Care Code 22679 Subseq Hosp Care Lvl 3
[2020-04-24] MEDS: DICLOFENAC SOD 1% GEL 100 GM TUBE EXT SCH ×2 (16:52→20:45)
[2020-04-24] MEDS: ATORVASTATIN 10 MG TAB PO SCH (20:44)
[2020-04-24] MEDS: TAMSULOSIN HCL 0.4 MG CAP PO SCH (20:44)
[2020-04-24] MEDS: BIMATOPROST 0.01% OP SOLN 2.5 ML BTL OP SCH (20:45)
[2020-04-24] MEDS: MoRPHine SULFATE 4 MG/ML 1 ML CARP\\VIAL IV PRN (20:57)
--- NOTE | 2020-04-24 22:47 | Billing Data ---
Date of Service April 24, 2020 Coding Level of Care Code 48155 Initial Inpt Care Lvl 3
[2020-04-25] MEDS: D5W AND 1/2NSS + 20MEQ KCL 20 MEQ/1,000 ML BAG IV SCH ×3 (00:01→22:24)
[2020-04-25 06:19] LABS: Basophils # (auto) 0.02 K/uL (0-0.2); Basophils % (auto) 0.3 %; Eosinophils # (auto) 0.43 K/uL (0-0.5); Eosinophils % (auto) 6.9 %; Hematocrit (blood only) 34.8 % (42-52); Hemoglobin 12.2 g/dL (14.0-18.0); Immature Granulocytes # (auto) 0.03 K/uL (0.00-0.02); Immature Granulocytes % (auto) 0.5 %; Lymphocytes # (auto) 1.32 K/uL (1.2-3.4); Lymphocytes % (auto) 21.2 %; Mean Corpuscular Hemoglobin 35.7 pg (25-34); Mean Corpuscular Hgb Conc 35.1 g/dL (32-36); Mean Corpuscular Volume 101.8 fL (80-100); Mean Platelet Volume 9.1 fL (7.4-10.4); Monocytes # (auto) 0.71 K/uL (0.11-0.59); Monocytes % (auto) 11.4 %; Neutrophils # (auto) 3.72 K/uL (1.4-6.5); Neutrophils % (auto) 59.7 %; Platelet Count 193 K/uL (130-400); RDW Coefficient of Variation 13.6 % (11.5-14.5); RDW Standard Deviation 51.2 fL (36.4-46.3); Red Blood Count 3.42 M/uL (4.7-6.1); White Blood Count 6.23 K/uL (4.8-10.8)
[2020-04-25 06:46] LABS: Albumin Level 3.1 gm/dl (3.4-5.0); BUN Creatinine Ratio 18.1 (10-20); Calcium 8.9 mg/dl (8.5-10.1); Est GFR (African American) 95.6; Est GFR (Non-African American) 82.5; Magnesium 2.2 mg/dl (1.8-2.4); Potassium 4.3 mmol/L (3.5-5.1)
[2020-04-25 06:49] LABS: Bilirubin,Total 2.3 mg/dl (0.2-1); Globulin 3.1 gm/dl (2.5-4.0); Total Protein 6.2 gm/dl (6.4-8.2)
[2020-04-25] MEDS: DICLOFENAC SOD 1% GEL 100 GM TUBE EXT SCH ×4 (08:11→20:34)
[2020-04-25] MEDS: TRIAMCINOLONE ACET 0.1% CR 15 GM TUBE TOP SCH (08:11)
[2020-04-25] MEDS: ARTIFICIAL TEARS OP SCH (08:12)
[2020-04-25] MEDS: FLUTICASONE/VILANTEROL 100/25MCG 14 PUFFS/INHALER INH SCH (08:13)
[2020-04-25] MEDS: CETIRIZINE HCL 10 MG TABLET PO SCH (08:13)
[2020-04-25] MEDS: PANTOprazole 40 MG TAB PO SCH ×2 (08:13→20:34)
[2020-04-25] MEDS: MULTIVITAMIN TAB PO SCH (08:13)
[2020-04-25] MEDS: MAGNESIUM OXIDE 400 MG TAB PO SCH ×2 (08:13→20:36)
[2020-04-25] MEDS: METOPROLOL SUCC 50MG EXT REL TAB PO SCH (08:13)
[2020-04-25] MEDS: UMECLIDINIUM BROMIDE 62.5MCG/BLISTER 7 PUFFS/INHALER INH SCH (08:13)
--- NOTE | 2020-04-25 09:04 | Hospitalist Progress Note ---
Date of Service April 25, 2020 Assessment & Plan (1) Elevated liver function tests: 84 yo M PMHx Factor V Leiden, HTN, sensorineural hearing loss, emphysema, glaucoma, sensory ataxia/post stroke gait disturbance, AFib, and wet macular degeneration admitted for concern for cholelithiasis / cholecystitis. RUQ Abdominal Pain/Choledocholithiasis: CT showing cholelithiasis, borderline gallbladder wall thickening, and borderline common bile duct wall thickening. AST ALT remain elevated at 61 and 101 respectively though down from yesterday, alkaline phosphatase remains elevated at 341 up from yesterday 294, lipase normal. Elevations consistent with biliary source. Suspect cholelithiasis/cholecystitis. MRCP limited due to motion, however gallbladder with some sludge and gallstones. GI planning on ERCP tomorrow NPO until that procedure - Morphine 4mg IV q4h for pain, zofran for nausea - Eliquis held for possible ERCP/cholecystectomy. last dose 04/23. - D5 1/2NSS with KCl 20meq @ 100mL/hr, will monitor for signs of fluid overload Chronic back pain: Patient with morphine for abdominal pain as above. Heating pad ordered. - Reports a recent history of T6 fracture without fall, which could suggest osteoporosis. History of A. fib with factor V Leiden: Holding Eliquis for procedure Saturday. Metoprolol for rate control -Rate well controlled at present Bilateral lower extremity edema: - Worsened since not being able to be on hydrochlorothiazide. Lasix 40 mg IV given once with improvement in LE swelling. -Will consider outpatient PO dose Troponin normal. CXR with no acute process. TTE with normal LVEF, no valvular abnormalities. - Repeat BMP tomorrow, consider repeat Lasix IV if continued peripheral edema and if Na no better. - Encouraged MONA compression stockings and ambulation as tolerated. Hyponatremia, mild asymptomatic: Suspect increase in total body water. Lasix as above. BMP daily I expect it to improve as today his lower limb edema also is much improved COPD: Continue Breo. Continue Spiriva. Doing well on room air at present. Hypertension: Continue metoprolol succinate 50 mg p.o. daily. GERD: Convert omeprazole to Protonix 20 mg twice daily for formulary. Hypomagnesemia: [employer] Mag-Ox held while n.p.o. IV Mg 2g given overnight. Code Status: FULL CODE DVT prophylaxis: Hold in setting of procedure Saturday; SCDs Diet: NPO, D5 1/2NSS with KCl 20meq @ 100mL/hr Disposition: Med/Surg with Telemetry pending ERCP and cholecystectomy on Saturday. (2) Chronic hyponatremia: (3) Mitral regurgitation: (4) Peripheral neuropathy: (5) Emphysema lung: (6) Glaucoma: (7) Anticoagulant long-term use: (8) Factor V Leiden mutation: (9) Gait disturbance, post-stroke: (10) Paroxysmal atrial fibrillation: (11) Hypertension: Admission and Anticipated Discharge Date Admission Date: April 24, 2020 Supervising Physician Co-Signing Physician Notes Resident Physician Supervision Note: I independently interviewed and examined the patient and verified the mcdermott history and physical, reviewed labs and image studies, discussed the case with the resident Dr. Schwartz and agree with the findings and care plan. Subjective Erik Forrest is resting MUCH more comfortably this morning. He tells me his abdominal pain is down markedly since yesterday. He says he has been urinating much more frequently since starting the lasix and his leg swelling is much improved. He is still having abdominal pain but it is much improved from previous. On full review of systems, no other new concerns. Review of Systems Review of Systems: All systems reviewed & are unremarkable except as noted in HPI & below Physical Exam Physical Exam: Constitutional: WD/WN, vitals as above Respiratory: normal respiratory effort, sounds vesicular in all lung [place] Cardiovascular: HR irregularly irregular rhythm, regular rate, no murmurs rubs skips or gallops, trace edema b/l lower extremities, peripheral pulses intact and equal bilaterally. Gastrointestinal (Abdomen): Abdomen soft, nontender, loud bowel sounds, no organomegaly. Patient endorses some abdominal pain but denies tenderness Skin: no rashes, warm and dry Psychiatric: A+Ox3, euthymic affect Results & Data Results & Data ([facility]) Vital Signs (Past 12 Hours) Vital Signs Temp Pulse Pulse Pulse Resp BP Pulse Ox 04/25/20 08:00 36.6 C 82 18 122/86 92 04/25/20 04:01 37 C 97 H 18 104/66 92 04/25/20 01:28 82 04/24/20 23:32 36.7 C 87 18 122/82 94 Resident Activity Tracking Resident Involvement: Resident Care Provided Care Provided: Adult Hospital Medicine (1) Peripheral neuropathy Peripheral neuropathy type: polyneuropathy, unspecified Qualified Code(s): G62.9 - Polyneuropathy, unspecified (2) Emphysema lung Emphysema type: panlobular Qualified Code(s): J43.1 - Panlobular emphysema
--- NOTE | 2020-04-25 10:14 | Surgery Progress Note ---
Date of Service April 25, 2020 Assessment & Plan (1) Elevated liver enzymes: clinically improving LFT's still elevated. ERCP in near future. discussed risks/benefit of lap gloria vs conservative management. pt wants his gallbladder removed. discussed bleeding/infection/dvt/pe/mi/cva/injury to a bile duct or other organ, bile leaks etc.... will plan lap gloria either wed or thurs after ERCP completed. (2) Gallstones: Subjective pt seen. feeling better/abdominal pain improved. Physical Exam Physical Exam: alert/oriented. nad abd: soft. nt. nd. Results & Data Vital Signs (Past 12 Hours) Vital Signs Temp Pulse Pulse Pulse Resp BP Pulse Ox 04/25/20 08:00 36.6 C 82 18 122/86 92 04/25/20 04:01 37 C 97 H 18 104/66 92 04/25/20 01:28 82 04/24/20 23:32 36.7 C 87 18 122/82 94 PG Care Time/CCT Total # of Minutes Spent Total Time Spent with Patient: Total time spent is greater than 50% in coordination of care (as documented) at patient's floor/unit and/or counseling patient: Coding Level of Care Code 21162 Subseq Hosp Care Lvl 3 Diagnoses Elevated liver enzymes R74.8 Gallstones K80.20
--- NOTE | 2020-04-25 13:58 | Progress Notes ---
DATE: 04/25/2020 The patient feels a little bit less abdominal pain today, but if he moves in a certain direction, he gets a pulling sharp pain in the epigastric and right upper quadrant. MRCP shows sludge in the gallbladder, but a normal caliber bile duct without any obvious stones, but it is a poor quality because of motion artifact. Of note is that his bilirubin has increased today. White count is still normal at 6.23, hemoglobin is 12.2. Bilirubin is 2.3, actually down from 2.4 yesterday, AST 61, ALT 101, alkaline phosphatase 341. Lipase was normal yesterday at 106. Abdomen is slightly distended but no discrete tenderness. There appears to be a seborrheic keratosis in the left mid abdomen. IMPRESSION: The patient is having abdominal pain and abnormal liver tests and it looks like an inflamed gallbladder. Plan on beginning Cipro 400 mg IV twice a day. We will proceed with an ERCP tomorrow to assess the bile duct for any potential stones or sludge, and continue to hold his Eliquis for at least 3 days, which tomorrow will be 3 days. He is also scheduled for laparoscopic cholecystectomy on 04/27.
[2020-04-25] MEDS: CIPROFLOXACIN / D5W 400 MG/200 ML BAG IV SCH (14:08)
--- NOTE | 2020-04-25 17:51 | Anesthesiology Consultation ---
Date of Service April 25, 2020 Assessment & Plan Chart Review Chart Review: Acceptable Risk for Surgery Consults Requested none History Surgery Operation Date: 04/26/20 11:30 Proposed Procedures p Endoscopic Retrograde Cholangiopancreatogram - Arnel Alfaro Operation Date: 04/27/20 07:15 Proposed Procedures p Laparoscopic Cholecystectomy - Benedicto Petit, DO Height/Weight Height: 5 ft 5 in Weight: 85.6 kg Allergies Allergy/AdvReac Type Severity Reaction Status Date / Time ketorolac Allergy Unknown . 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 Dust Mite Extract Allergy Unknown seasonal Uncoded 04/23/20 23:47 type allergies Medications Home Medications Medication Instructions Recorded Confirmed Last Taken apixaban 5 mg tablet 5 mg PO BID #180 tab 05/26/19 04/24/20 04/23/20 cetirizine 10 mg tablet 10 mg PO DAILY tab 07/30/19 04/24/20 04/23/20 cholecalciferol (vitamin D3) 25 1,000 units PO DAILY tab 07/30/19 04/24/20 04/23/20 mcg (1,000 unit) tablet multivitamin 1 tab PO DAILY tab 07/30/19 04/24/20 04/23/20 bimatoprost 0.01 % eye drops 1 drops OP QPM 09/15/19 04/24/20 04/23/20 polyvinyl alcohol 1.4 % eye drops 1 drops OP DAILY 09/15/19 04/24/20 04/23/20 atorvastatin 10 mg PO HS 11/04/19 04/24/20 04/23/20 fluticasone propionate 50 2 sprays INTRANASAL DAILY PRN #48 11/20/19 04/24/20 Unknown mcg/actuation nasal gm spray,suspension magnesium oxide 400 mg (241.3 mg 400 mg PO BID #180 tab 12/02/19 04/24/20 04/23/20 magnesium) tablet tamsulosin 0.4 mg capsule 0.4 mg PO HS #90 cap 12/02/19 04/24/20 04/23/20 tiotropium bromide 18 mcg capsule 18 mcg INHALATION DAILY #90 puffs 12/02/19 04/24/20 04/23/20 with inhalation device omeprazole 10 mg capsule,delayed 20 mg PO BID #360 cap 12/04/19 04/24/20 04/23/20 release emollient 1 appln TOP DAILY gm 12/29/19 04/24/20 04/23/20 mineral oil-hydrophil petrolat 1 appln TOP DAILY gm 12/29/19 04/24/20 04/23/20 triamcinolone acetonide 0.1 % 1 appln TOP DAILY 12/29/19 04/24/20 04/23/20 topical cream metoprolol tartrate 25 mg tablet 25 mg PO DAILY PRN #30 tab 01/13/20 04/24/20 Unknown fluticasone furoate 100 1 puffs INH DAILY #60 ea 03/07/20 04/24/20 04/23/20 mcg-vilanterol 25 mcg/dose inhalation powder lorazepam 0.5 mg tablet 0.5 mg PO .COMPLEX PRN #2 tab 04/14/20 04/24/20 Unknown metoprolol succinate 50 mg PO DAILY 04/24/20 04/24/20 04/23/20 Active Medications Generic Name Dose Route Start Last Admin Trade Name Freq PRN Reason Stop Dose Admin Artificial Tears 1 drops 04/24/20 09:00 04/25/20 08:12 Artificial Tears OP 05/24/20 08:59 1 drops DAILY NICK Administration Atorvastatin Calcium 10 mg 04/24/20 21:00 04/24/20 20:44 Lipitor PO 05/24/20 20:59 10 mg HS NICK Administration Bimatoprost 1 drops 04/24/20 21:00 04/24/20 20:45 Lumigan 0.01% OP 05/24/20 20:59 1 drops QPM NICK Administration Cetirizine HCl 10 mg 04/24/20 09:00 04/25/20 08:13 Zyrtec PO 05/24/20 08:59 10 mg DAILY NICK Administration Diclofenac Sodium 2 gm 04/24/20 17:00 04/25/20 16:58 Voltaren 1% Top EXT 05/24/20 16:59 2 gm QID NICK Administration Fluticasone/Vilanterol 1 puffs 04/24/20 09:00 04/25/20 08:13 Breo Ellipta 100/25 Mcg Inh INH 05/24/20 08:59 1 puffs DAILY NICK Administration Potassium Chloride/Dextrose/Sod Cl 20 meq in 1,000 mls @ 100 mls/hr 04/24/20 13:30 04/25/20 16:08 D5w And 1/2nss + 20meq Kcl IV 05/24/20 13:29 100 mls/hr .Q10H NICK Infusion Ciprofloxacin 400 mg in 200 mls @ 100 mls/hr 04/25/20 14:00 04/25/20 16:08 Cipro IV 05/05/20 13:59 Infused Q12H NICK Infusion Ioversol 94 ml 04/24/20 01:00 04/24/20 01:00 Optiray 320 100ml IV 04/28/20 00:59 94 ml ONCE PRN Administration Interaction Checking Magnesium Oxide 400 mg 04/24/20 09:00 04/25/20 08:13 Mag-Ox PO 05/24/20 08:59 400 mg BID NICK Administration Metoprolol Succinate 50 mg 04/24/20 09:00 04/25/20 08:13 Toprol Xl PO 05/24/20 08:59 50 mg DAILY NICK Administration Morphine Sulfate 4 mg 04/24/20 10:42 04/24/20 20:57 Morphine Sulfate IV 05/08/20 10:41 4 mg Q4H PRN Administration Pain Multivitamins 1 tab 04/24/20 09:00 04/25/20 08:13 Multivitamin Tab PO 05/24/20 08:59 1 tab DAILY NICK Administration Ondansetron HCl 4 mg 04/24/20 09:26 04/24/20 16:56 Zofran IV 05/24/20 09:25 4 mg Q6H PRN Administration Nausea Pantoprazole Sodium 40 mg 04/24/20 09:00 04/25/20 08:13 Protonix PO 05/24/20 08:59 40 mg BID NICK Administration Tamsulosin HCl 0.4 mg 04/24/20 21:00 04/24/20 20:44 Flomax PO 05/24/20 20:59 0.4 mg HS NICK Administration Triamcinolone Acetonide 1 appln 04/24/20 09:00 04/25/20 08:11 Kenalog 0.1% TOP 05/24/20 08:59 1 appln DAILY NICK Administration Umeclidinium [place] 1 puffs 04/24/20 09:00 04/25/20 08:13 Incruse Ellipta INH 05/24/20 08:59 1 puffs DAILY NICK Administration Past Medical History Medical History Anemia (Chronic) Anticoagulant long-term use (Chronic) 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) Carotid artery plaque (Resolved) Chronic hyponatremia (Chronic) Closed head injury (Inactive) Congenital nystagmus Drug-induced lupus erythematosus Emphysema lung (Chronic) Factor V Leiden mutation (Chronic) Gait disturbance, post-stroke (Chronic) Glaucoma (Chronic) Hyperlipidemia (Chronic) Hypertension (Chronic) Mitral regurgitation (Chronic) 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 Unknown Heart disease Hypertension Pulmonary embolism Sister No problems noted. Denies family history of Ovarian cancer Prostate cancer Diabetes Breast cancer Past Surgical History Surgical History H/O hernia repair H/O prostate biopsy H/O repair of rotator cuff H/O shoulder surgery History of colonoscopy Social History Smoking Status: Never smoker Hx Alcohol Use: Yes Alcohol type: beer alcohol intake frequency: 0-2 drinks per day Hx Substance Use: No Physical Exam Vital Signs Last Vital Signs Temp 36.6 C 04/25/20 15:03 Pulse 92 H 04/25/20 15:03 Resp 20 04/25/20 15:03 BP 129/90 04/25/20 15:03 Pulse Ox 91 04/25/20 15:03 Testing Laboratory Results 04/25/20 05:21 04/25/20 05:21 PT 12.5 Seconds (9.0-12.0) H 04/23/20 23:40 INR 1.2 (0.9-1.1) H 04/23/20 23:40 Urine Color Yellow 04/24/20 03:35 Urine Appearance Clear (Clear) 04/24/20 03:35 Urine pH 8.5 (4.5-7.5) H 04/24/20 03:35 Ur Specific [place] 1.037 (1.000-1.030) H 04/24/20 03:35 Urine Protein Negative (Negative) 04/24/20 03:35 Urine Glucose (UA) Negative (Negative) 04/24/20 03:35 Urine Ketones Negative (Negative) 04/24/20 03:35 Urine Nitrite Negative (Negative) 04/24/20 03:35 Ur Leukocyte Esterase Negative (Negative) 04/24/20 03:35 04/25/20 11:51 POC Glucose 97
[2020-04-25] MEDS: MoRPHine SULFATE 4 MG/ML 1 ML CARP\\VIAL IV PRN (18:24)
[2020-04-25] MEDS: TAMSULOSIN HCL 0.4 MG CAP PO SCH (20:36)
[2020-04-25] MEDS: ATORVASTATIN 10 MG TAB PO SCH (20:36)
[2020-04-25] MEDS: BIMATOPROST 0.01% OP SOLN 2.5 ML BTL OP SCH (20:38)
[2020-04-25] MEDS ORDERED: MICONAZOLE NITRATE POWDER 43 GM EXT PRN (21:07)
[2020-04-26] MEDS: CIPROFLOXACIN / D5W 400 MG/200 ML BAG IV SCH ×2 (01:46→13:11)
[2020-04-26] MEDS: MoRPHine SULFATE 4 MG/ML 1 ML CARP\\VIAL IV PRN (02:17)
[2020-04-26] MEDS: ONDANSETRON INJ 2 MG/ML 2 ML VIAL IV PRN (02:54)
[2020-04-26 07:20] LABS: Basophils # (auto) 0.01 K/uL (0-0.2); Basophils % (auto) 0.3 %; Eosinophils # (auto) 0.36 K/uL (0-0.5); Hematocrit (blood only) 32.2 % (42-52); Hemoglobin 11.3 g/dL (14.0-18.0); Immature Granulocytes # (auto) 0.02 K/uL (0.00-0.02); Immature Granulocytes % (auto) 0.5 %; Lymphocytes # (auto) 0.74 K/uL (1.2-3.4); Lymphocytes % (auto) 18.5 %; Mean Corpuscular Hemoglobin 35.6 pg (25-34); Mean Corpuscular Hgb Conc 35.1 g/dL (32-36); Mean Corpuscular Volume 101.6 fL (80-100); Mean Platelet Volume 8.8 fL (7.4-10.4); Monocytes # (auto) 0.54 K/uL (0.11-0.59); Monocytes % (auto) 13.5 %; Neutrophils # (auto) 2.32 K/uL (1.4-6.5); Neutrophils % (auto) 58.2 %; Platelet Count 172 K/uL (130-400); RDW Coefficient of Variation 13.5 % (11.5-14.5); RDW Standard Deviation 50.2 fL (36.4-46.3); Red Blood Count 3.17 M/uL (4.7-6.1); White Blood Count 3.99 K/uL (4.8-10.8)
[2020-04-26 07:51] LABS: Albumin Level 2.6 gm/dl (3.4-5.0); Calcium 8.5 mg/dl (8.5-10.1); Est GFR (African American) 102.3; Est GFR (Non-African American) 88.2; Potassium 4.5 mmol/L (3.5-5.1)
[2020-04-26 07:55] LABS: Albumin Globulin Ratio 0.9 (0.9-2); Bilirubin,Total 3.6 mg/dl (0.2-1); Total Protein 5.6 gm/dl (6.4-8.2)
[2020-04-26] MEDS: DICLOFENAC SOD 1% GEL 100 GM TUBE EXT SCH ×4 (08:06→20:29)
[2020-04-26] MEDS: TRIAMCINOLONE ACET 0.1% CR 15 GM TUBE TOP SCH (08:06)
[2020-04-26] MEDS: UMECLIDINIUM BROMIDE 62.5MCG/BLISTER 7 PUFFS/INHALER INH SCH (08:07)
[2020-04-26] MEDS: FLUTICASONE/VILANTEROL 100/25MCG 14 PUFFS/INHALER INH SCH (08:07)
[2020-04-26] MEDS: MULTIVITAMIN TAB PO SCH (08:08)
[2020-04-26] MEDS: ARTIFICIAL TEARS OP SCH (08:08)
[2020-04-26] MEDS: METOPROLOL SUCC 50MG EXT REL TAB PO SCH (08:08)
[2020-04-26] MEDS: CETIRIZINE HCL 10 MG TABLET PO SCH (08:08)
[2020-04-26] MEDS: MAGNESIUM OXIDE 400 MG TAB PO SCH ×2 (08:08→20:27)
[2020-04-26] MEDS: PANTOprazole 40 MG TAB PO SCH ×2 (08:08→20:27)
--- NOTE | 2020-04-26 09:32 | Surgery Progress Note ---
Date of Service April 26, 2020 Assessment & Plan (1) Elevated liver enzymes: ERCP today lap gloria tomorrow as above.clinically feeling better but LFT's increased today. for ERCP today. planning lap gloria tomorrow. Subjective no complaints, eager to have procedures Physical Exam Skin: + jaundice Results & Data Vital Signs (Past 12 Hours) Vital Signs Temp Pulse Pulse Resp BP Pulse Ox 04/26/20 07:19 36.5 C 83 18 119/78 94 04/26/20 04:29 36.5 C 81 16 113/78 92 04/26/20 01:25 89 PG Care Time/CCT Total # of Minutes Spent Total Time Spent with Patient: Total time spent is greater than 50% in coordination of care (as documented) at patient's floor/unit and/or counseling patient: Coding Level of Care Code 54111 Subseq Hosp Care Lvl 2 Diagnoses Elevated liver enzymes R74.8
[2020-04-26] MEDS: D5W AND 1/2NSS + 20MEQ KCL 20 MEQ/1,000 ML BAG IV SCH ×2 (10:47→17:01)
--- NOTE | 2020-04-26 12:57 | Hospitalist Progress Note ---
Date of Service April 26, 2020 Assessment & Plan (1) Elevated liver function tests: 84 yo M PMHx Factor V Leiden, HTN, sensorineural hearing loss, emphysema, glaucoma, sensory ataxia/post stroke gait disturbance, AFib, and wet macular degeneration admitted for concern for cholelithiasis / cholecystitis. RUQ Abdominal Pain/Choledocholithiasis: - CT showing cholelithiasis, borderline gallbladder wall thickening, and borderline common bile duct wall thickening. - AST ALT both elevated from yesterday at 99 and 117 respectively though down from yesterday, alkaline phosphatase remains elevated at 341 up from yesterday 294, lipase normal. Bilirubin now elevated to 3.6 Elevations consistent with biliary obstruction Suspect cholelithiasis/cholecystitis. MRCP limited due to motion, however gallbladder with some sludge and gallstones. GI planning on ERCP today NPO until that procedure - Morphine 4mg IV q4h for pain, zofran for nausea - Eliquis held for possible ERCP/cholecystectomy. last dose 04/23. - D5 1/2NSS with KCl 20meq @ 100mL/hr, will monitor for signs of fluid overload Chronic back pain: Patient with morphine for abdominal pain as above. Heating pad ordered. - Reports a recent history of T6 fracture without fall, which could suggest osteoporosis. History of A. fib with factor V Leiden: Holding Eliquis for procedure today and surgery tomorrow. Metoprolol for rate control -Rate well controlled at present Bilateral lower extremity edema: - Worsened since not being able to be on hydrochlorothiazide. Lasix 40 mg IV given once with improvement in LE swelling. -Will consider outpatient PO dose Troponin normal. CXR with no acute process. TTE with normal LVEF, no valvular abnormalities. - Repeat BMP tomorrow, consider repeat Lasix IV if continued peripheral edema and if Na no better. - Encouraged MONA compression stockings and ambulation as tolerated. Hyponatremia, mild asymptomatic: Suspect increase in total body water. Lasix as above. BMP daily continuing to slowly improve COPD: Continue Breo. Continue Spiriva. Doing well on room air at present. Hypertension: Continue metoprolol succinate 50 mg p.o. daily. GERD: Convert omeprazole to Protonix 20 mg twice daily for formulary. Code Status: FULL CODE DVT prophylaxis: Hold in setting of procedure and surgery today and tomorrow; SCDs Diet: NPO, D5 1/2NSS with KCl 20meq @ 100mL/hr Disposition: Med/Surg with Telemetry pending ERCP today and cholecystectomy on Saturday. (2) Chronic hyponatremia: (3) Mitral regurgitation: (4) Peripheral neuropathy: (5) Emphysema lung: (6) Glaucoma: (7) Anticoagulant long-term use: (8) Factor V Leiden mutation: (9) Gait disturbance, post-stroke: (10) Paroxysmal atrial fibrillation: (11) Hypertension: Admission and Anticipated Discharge Date Admission Date: April 24, 2020 Supervising Physician Co-Signing Physician Notes Resident Physician Supervision Note: I independently interviewed and examined the patient and verified the mcdermott history and physical, reviewed labs and image studies, discussed the case with the resident Dr. Schwartz and agree with the findings and care plan. Subjective Same Mr. Forrest is doing fairly well today, he mentions that he has had worsening of his abdominal pain is required pain medication for morphine, at present he is doing pretty well, eager for the ERCP to be performed. Besides abdominal pain no other concerns at present Review of Systems Review of Systems: All systems reviewed & are unremarkable except as noted in HPI & below Physical Exam Physical Exam: Constitutional: WD/WN, vitals as above Respiratory: normal respiratory effort, sounds vesicular in all lung parish Cardiovascular: HR irregularly irregular rhythm, regular rate, no murmurs rubs skips or gallops, trace edema b/l lower extremities, peripheral pulses intact and equal bilaterally. Gastrointestinal (Abdomen): Abdomen soft, nontender, loud bowel sounds, no organomegaly. Patient endorses some abdominal pain but denies tenderness Skin: no rashes, warm and dry Psychiatric: A+Ox3, euthymic affect Results & Data Results & Data ([facility]) Vital Signs (Past 12 Hours) Vital Signs Temp Pulse Pulse Resp BP Pulse Ox 04/26/20 11:23 36.4 C L 93 H 18 124/81 91 04/26/20 07:19 36.5 C 83 18 119/78 94 04/26/20 04:29 36.5 C 81 16 113/78 92 04/26/20 01:25 89 Resident Activity Tracking Resident Involvement: Resident Care Provided Care Provided: Adult Hospital Medicine (1) Peripheral neuropathy Peripheral neuropathy type: polyneuropathy, unspecified Qualified Code(s): G62.9 - Polyneuropathy, unspecified (2) Emphysema lung Emphysema type: panlobular Qualified Code(s): J43.1 - Panlobular emphysema
--- NOTE | 2020-04-26 15:14 | History & Physical Report ---
Date of Service April 26, 2020 History of Present Illness Chief Complaint: abd pain, abnl lfts Primary Care Provider: Ayad Lozano MD For ERCP Allergies Allergy/AdvReac Type Severity Reaction Status Date / Time ketorolac Allergy Unknown . 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 Dust Mite Extract Allergy Unknown seasonal Uncoded 04/23/20 23:47 type allergies Home Medications Home Medications Medication Instructions Recorded Confirmed Type apixaban 5 mg tablet 5 mg PO BID #180 tab 05/26/19 04/24/20 Rx cetirizine 10 mg tablet 10 mg PO DAILY tab 07/30/19 04/24/20 History cholecalciferol (vitamin D3) 25 1,000 units PO DAILY tab 07/30/19 04/24/20 History mcg (1,000 unit) tablet multivitamin 1 tab PO DAILY tab 07/30/19 04/24/20 History bimatoprost 0.01 % eye drops 1 drops OP QPM 09/15/19 04/24/20 History polyvinyl alcohol 1.4 % eye drops 1 drops OP DAILY 09/15/19 04/24/20 History atorvastatin 10 mg PO HS 11/04/19 04/24/20 History fluticasone propionate 50 2 sprays INTRANASAL DAILY PRN #48 11/20/19 04/24/20 Rx mcg/actuation nasal gm spray,suspension magnesium oxide 400 mg (241.3 mg 400 mg PO BID #180 tab 12/02/19 04/24/20 Rx magnesium) tablet tamsulosin 0.4 mg capsule 0.4 mg PO HS #90 cap 12/02/19 04/24/20 Rx tiotropium bromide 18 mcg capsule 18 mcg INHALATION DAILY #90 puffs 12/02/19 04/24/20 Rx with inhalation device omeprazole 10 mg capsule,delayed 20 mg PO BID #360 cap 12/04/19 04/24/20 Rx release emollient 1 appln TOP DAILY gm 12/29/19 04/24/20 History mineral oil-hydrophil petrolat 1 appln TOP DAILY gm 12/29/19 04/24/20 History triamcinolone acetonide 0.1 % 1 appln TOP DAILY 12/29/19 04/24/20 History topical cream metoprolol tartrate 25 mg tablet 25 mg PO DAILY PRN #30 tab 01/13/20 04/24/20 Rx fluticasone furoate 100 1 puffs INH DAILY #60 ea 03/07/20 04/24/20 Rx mcg-vilanterol 25 mcg/dose inhalation powder lorazepam 0.5 mg tablet 0.5 mg PO .COMPLEX PRN #2 tab 04/14/20 04/24/20 Rx metoprolol succinate 50 mg PO DAILY 04/24/20 04/24/20 History Past Med/Surg History Medical History Anemia (Chronic) Anticoagulant long-term use (Chronic) 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) Carotid artery plaque (Resolved) Chronic hyponatremia (Chronic) Closed head injury (Inactive) Congenital nystagmus Drug-induced lupus erythematosus Emphysema lung (Chronic) Factor V Leiden mutation (Chronic) Gait disturbance, post-stroke (Chronic) Glaucoma (Chronic) Hyperlipidemia (Chronic) Hypertension (Chronic) Mitral regurgitation (Chronic) 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 Unknown Heart disease Hypertension Pulmonary embolism Sister No problems noted. Denies family history of Ovarian cancer Prostate cancer Diabetes Breast cancer Social History Preferred Language: Setswana Communication Ability: Effective Visual Impairment: No Limitations Hearing Ability: Use of Hearing Aid Beliefs That Will Affect Care: None marital status: / Current Living Situation: Alone current occupational status: retired Other Information That Helps Us Care for You: No Feels Safe at Home: Yes Safety Concerns: Feels Safe At This Time Smoking Status: Never smoker Hx Alcohol Use: Yes Alcohol type: beer Alcohol Intake Frequency: Daily Hx Substance Use: No Childhood Exposure to Second-Hand Smoke: Yes caffeine: Yes Dental Care, Regularly: No Physical Activity Frequency: Does not Exercise Seatbelt Use: always Sunscreen Use: Yes Physical Exam Constitutional: well developed and well nourished Respiratory: normal respiratory effort Cardiovascular: Rate/Rhythm: + irregularly irregular Gastrointestinal (Abdomen): Percussion/Palpation: abdomen soft Results & Data Vital Signs (Past 12 Hours) Vital Signs Temp Pulse Resp BP Pulse Ox 04/26/20 11:23 36.4 C L 93 H 18 124/81 91 04/26/20 07:19 36.5 C 83 18 119/78 94 04/26/20 04:29 36.5 C 81 16 113/78 92 Code Status & VTE Plan VTE Prophylaxis Plan VTE Prophylaxis will be ordered: Yes
[2020-04-26] MEDS: TAMSULOSIN HCL 0.4 MG CAP PO SCH (20:27)
[2020-04-26] MEDS: BIMATOPROST 0.01% OP SOLN 2.5 ML BTL OP SCH (20:28)
[2020-04-26] MEDS: ATORVASTATIN 10 MG TAB PO SCH (20:28)
[2020-04-27] MEDS: D5W AND 1/2NSS + 20MEQ KCL 20 MEQ/1,000 ML BAG IV SCH ×3 (00:51→23:32)
[2020-04-27] MEDS: CIPROFLOXACIN / D5W 400 MG/200 ML BAG IV SCH ×2 (01:18→13:01)
[2020-04-27] MEDS: MoRPHine SULFATE 4 MG/ML 1 ML CARP\\VIAL IV PRN ×2 (01:18→14:09)
[2020-04-27 06:54] LABS: Basophils # (auto) 0.01 K/uL (0-0.2); Basophils % (auto) 0.3 %; Eosinophils # (auto) 0.38 K/uL (0-0.5); Eosinophils % (auto) 9.8 %; Hematocrit (blood only) 31.2 % (42-52); Hemoglobin 11.1 g/dL (14.0-18.0); Immature Granulocytes # (auto) 0.02 K/uL (0.00-0.02); Immature Granulocytes % (auto) 0.5 %; Lymphocytes # (auto) 0.86 K/uL (1.2-3.4); Lymphocytes % (auto) 22.1 %; Mean Corpuscular Hemoglobin 35.8 pg (25-34); Mean Corpuscular Hgb Conc 35.6 g/dL (32-36); Mean Corpuscular Volume 100.6 fL (80-100); Mean Platelet Volume 8.6 fL (7.4-10.4); Monocytes # (auto) 0.56 K/uL (0.11-0.59); Monocytes % (auto) 14.4 %; Neutrophils # (auto) 2.06 K/uL (1.4-6.5); Neutrophils % (auto) 52.9 %; Platelet Count 174 K/uL (130-400); RDW Coefficient of Variation 13.3 % (11.5-14.5); RDW Standard Deviation 48.6 fL (36.4-46.3); White Blood Count 3.89 K/uL (4.8-10.8)
[2020-04-27 07:25] LABS: Albumin Level 2.6 gm/dl (3.4-5.0); BUN Creatinine Ratio 17.2 (10-20); Calcium 8.6 mg/dl (8.5-10.1); Creatinine Clr Calc Pharmacy 90.9 ml/min; Est GFR (Non-African American) 92.3; Potassium 4.4 mmol/L (3.5-5.1)
[2020-04-27 07:28] LABS: Albumin Globulin Ratio 0.9 (0.9-2); Bilirubin,Total 3.4 mg/dl (0.2-1); Globulin 2.9 gm/dl (2.5-4.0); Total Protein 5.5 gm/dl (6.4-8.2)
[2020-04-27] MEDS: UMECLIDINIUM BROMIDE 62.5MCG/BLISTER 7 PUFFS/INHALER INH SCH (08:24)
[2020-04-27] MEDS: MAGNESIUM OXIDE 400 MG TAB PO SCH ×2 (08:24→19:54)
[2020-04-27] MEDS: FLUTICASONE/VILANTEROL 100/25MCG 14 PUFFS/INHALER INH SCH (08:24)
[2020-04-27] MEDS: DICLOFENAC SOD 1% GEL 100 GM TUBE EXT SCH ×4 (08:24→19:56)
[2020-04-27] MEDS: CETIRIZINE HCL 10 MG TABLET PO SCH (08:24)
[2020-04-27] MEDS: MULTIVITAMIN TAB PO SCH (08:24)
[2020-04-27] MEDS: TRIAMCINOLONE ACET 0.1% CR 15 GM TUBE TOP SCH (08:24)
[2020-04-27] MEDS: METOPROLOL SUCC 50MG EXT REL TAB PO SCH (08:25)
[2020-04-27] MEDS: PANTOprazole 40 MG TAB PO SCH ×2 (08:25→19:55)
[2020-04-27] MEDS: ARTIFICIAL TEARS OP SCH (08:25)
--- NOTE | 2020-04-27 12:34 | Hospitalist Progress Note ---
Date of Service April 27, 2020 Assessment & Plan (1) Elevated liver function tests: 84 yo M PMHx Factor V Leiden, HTN, sensorineural hearing loss, emphysema, glaucoma, sensory ataxia/post stroke gait disturbance, AFib, and wet macular degeneration admitted for concern for cholelithiasis / cholecystitis. RUQ Abdominal Pain/Choledocholithiasis: - CT showing cholelithiasis, borderline gallbladder wall thickening, and borderline common bile duct wall thickening. - AST ALT both elevated from yesterday at 103 and 142 respectively, alkaline phosphatase remains elevated at 702 up from yesterday, lipase normal. Bilirubin now elevated to 3.4 Elevations consistent with biliary obstruction Suspect cholelithiasis/cholecystitis. MRCP limited due to motion, however gallbladder with some sludge and gallstones. GI and surgery will take patient for ERCP and cholecystecomy today - NPO since midnight for that procedure - Morphine 4mg IV q4h for pain, zofran for nausea - Eliquis held for possible ERCP/cholecystectomy. last dose 04/23. - On ciprolfoxacin for prophylaxis Chronic back pain: Patient with morphine for abdominal pain as above. Heating pad ordered. - Reports a recent history of T6 fracture without fall, which could suggest osteoporosis. History of A. fib with factor V Leiden: Holding Eliquis for procedures today - Will resume tomorrow Metoprolol for rate control -Rate well controlled at present Bilateral lower extremity edema: - Worsened since not being able to be on hydrochlorothiazide. Lasix 40 mg IV given once with improvement in LE swelling. -Will consider outpatient PO dose Doing well now Troponin normal. CXR with no acute process. TTE with normal LVEF, no valvular abnormalities. - Repeat BMP tomorrow, consider repeat Lasix IV if continued peripheral edema and if Na no better. - Encouraged MONA compression stockings and ambulation as tolerated. Hyponatremia, mild asymptomatic: Suspect increase in total body water. Lasix as above. BMP daily continuing to slowly improve COPD: Continue Breo. Continue Spiriva. Doing well on room air at present. Hypertension: Continue metoprolol succinate 50 mg p.o. daily. GERD: Convert omeprazole to Protonix 20 mg twice daily for formulary. Code Status: FULL CODE DVT prophylaxis: Hold in setting of procedure and surgery today and tomorrow; SCDs Diet: NPO, Disposition: Med/Surg with Telemetry pending ERCP and cholecystectomy today. Hope to d/c home tomorrow am. (2) Chronic hyponatremia: (3) Mitral regurgitation: (4) Peripheral neuropathy: (5) Emphysema lung: (6) Glaucoma: (7) Anticoagulant long-term use: (8) Factor V Leiden mutation: (9) Gait disturbance, post-stroke: (10) Paroxysmal atrial fibrillation: (11) Hypertension: Admission and Anticipated Discharge Date Admission Date: April 24, 2020 Supervising Physician Co-Signing Physician Notes Resident Physician Supervision Note: I independently interviewed and examined the patient and verified the mcdermott history and physical, reviewed labs and image studies, discussed the case with the resident Dr. Schwartz and agree with the findings and care plan. Subjective Erik Forrest is doing well this morning, no acute events overnight. He is continuing to have some abdominal pain particularly post prandial. He did not have his ERCP yesterday so he did have a clear liquid meal at dinner last night. This morning he will go for ERCP and cholecystectomy. Answered all questions and he is feeling well. Review of Systems Review of Systems: All systems reviewed & are unremarkable except as noted in HPI & below Physical Exam Physical Exam: Constitutional: WD/WN, vitals as above Respiratory: normal respiratory effort, sounds vesicular in all lung parish Cardiovascular: HR irregularly irregular rhythm, regular rate, no murmurs rubs skips or gallops, trace edema b/l lower extremities, peripheral pulses intact and equal bilaterally. Gastrointestinal (Abdomen): Abdomen soft, nontender, loud bowel sounds, no organomegaly. Patient endorses some abdominal pain but denies tenderness Skin: no rashes, warm and dry Psychiatric: A+Ox3, euthymic affect Results & Data Results & Data ([place]) Vital Signs (Past 12 Hours) Vital Signs Temp Pulse Pulse Resp BP BP Pulse Ox 04/27/20 07:06 36.7 C 94 H 18 142/89 H 96 04/27/20 04:49 36.6 C 96 H 20 104/66 95 04/27/20 02:08 97 H 04/26/20 23:55 36.6 C 88 20 128/80 96 (1) Peripheral neuropathy Peripheral neuropathy type: polyneuropathy, unspecified Qualified Code(s): G62.9 - Polyneuropathy, unspecified (2) Emphysema lung Emphysema type: panlobular Qualified Code(s): J43.1 - Panlobular emphysema
[2020-04-27] MEDS ORDERED: PROPOFOL IV EMULSION 10 MG/ML 20 ML VIAL IV ONE (15:32)
[2020-04-27] MEDS ORDERED: LIDOCAINE HCL 2% 2 ML VIAL/AMP(20MG/ML) INFIL ONE (15:32)
[2020-04-27] MEDS ORDERED: SUCCINYLCHOLINE CHLORIDE 20 MG/ML 10 ML VIAL IV ONE (15:32)
[2020-04-27] MEDS ORDERED: fentaNYL citrate 100 MCG/2 ML VIAL ONE (15:32)
--- NOTE | 2020-04-27 15:42 | History & Physical Report ---
Date of Service April 27, 2020 History of Present Illness Chief Complaint: abd pain, abnl lfts Primary Care Provider: Ayad Lozano MD For ERCP Allergies Allergy/AdvReac Type Severity Reaction Status Date / Time ketorolac Allergy Unknown . 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 Dust Mite Extract Allergy Unknown seasonal Uncoded 04/23/20 23:47 type allergies Home Medications Home Medications Medication Instructions Recorded Confirmed Type apixaban 5 mg tablet 5 mg PO BID #180 tab 05/26/19 04/24/20 Rx cetirizine 10 mg tablet 10 mg PO DAILY tab 07/30/19 04/24/20 History cholecalciferol (vitamin D3) 25 1,000 units PO DAILY tab 07/30/19 04/24/20 History mcg (1,000 unit) tablet multivitamin 1 tab PO DAILY tab 07/30/19 04/24/20 History bimatoprost 0.01 % eye drops 1 drops OP QPM 09/15/19 04/24/20 History polyvinyl alcohol 1.4 % eye drops 1 drops OP DAILY 09/15/19 04/24/20 History atorvastatin 10 mg PO HS 11/04/19 04/24/20 History fluticasone propionate 50 2 sprays INTRANASAL DAILY PRN #48 11/20/19 04/24/20 Rx mcg/actuation nasal gm spray,suspension magnesium oxide 400 mg (241.3 mg 400 mg PO BID #180 tab 12/02/19 04/24/20 Rx magnesium) tablet tamsulosin 0.4 mg capsule 0.4 mg PO HS #90 cap 12/02/19 04/24/20 Rx tiotropium bromide 18 mcg capsule 18 mcg INHALATION DAILY #90 puffs 12/02/19 04/24/20 Rx with inhalation device omeprazole 10 mg capsule,delayed 20 mg PO BID #360 cap 12/04/19 04/24/20 Rx release emollient 1 appln TOP DAILY gm 12/29/19 04/24/20 History mineral oil-hydrophil petrolat 1 appln TOP DAILY gm 12/29/19 04/24/20 History triamcinolone acetonide 0.1 % 1 appln TOP DAILY 12/29/19 04/24/20 History topical cream metoprolol tartrate 25 mg tablet 25 mg PO DAILY PRN #30 tab 01/13/20 04/24/20 Rx fluticasone furoate 100 1 puffs INH DAILY #60 ea 03/07/20 04/24/20 Rx mcg-vilanterol 25 mcg/dose inhalation powder lorazepam 0.5 mg tablet 0.5 mg PO .COMPLEX PRN #2 tab 04/14/20 04/24/20 Rx metoprolol succinate 50 mg PO DAILY 04/24/20 04/24/20 History Past Med/Surg History Medical History Anemia (Chronic) Anticoagulant long-term use (Chronic) 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) Carotid artery plaque (Resolved) Chronic hyponatremia (Chronic) Closed head injury (Inactive) Congenital nystagmus Drug-induced lupus erythematosus Emphysema lung (Chronic) Factor V Leiden mutation (Chronic) Gait disturbance, post-stroke (Chronic) Glaucoma (Chronic) Hyperlipidemia (Chronic) Hypertension (Chronic) Mitral regurgitation (Chronic) 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 Unknown Heart disease Hypertension Pulmonary embolism Sister No problems noted. Denies family history of Ovarian cancer Prostate cancer Diabetes Breast cancer Social History Preferred Language: Greenlandic Communication Ability: Effective Visual Impairment: No Limitations Hearing Ability: Use of Hearing Aid Beliefs That Will Affect Care: None marital status: / Current Living Situation: Alone current occupational status: retired Other Information That Helps Us Care for You: No Feels Safe at Home: Yes Safety Concerns: Feels Safe At This Time Smoking Status: Never smoker Hx Alcohol Use: Yes Alcohol type: beer Alcohol Intake Frequency: Daily Hx Substance Use: No Childhood Exposure to Second-Hand Smoke: Yes caffeine: Yes Dental Care, Regularly: No Physical Activity Frequency: Does not Exercise Seatbelt Use: always Sunscreen Use: Yes Physical Exam Constitutional: + ill appearing and + obese Respiratory: normal respiratory effort Cardiovascular: Rate/Rhythm: regular rate and regular rhythm Gastrointestinal (Abdomen): Percussion/Palpation: abdomen soft Skin: + purpura Results & Data Vital Signs (Past 12 Hours) Vital Signs Temp Pulse Pulse Resp BP BP Pulse Ox 04/27/20 15:30 36.7 C 81 18 160/100 H 97 04/27/20 15:17 36.8 C 90 18 165/107 H 92 04/27/20 14:20 78 04/27/20 11:00 36.5 C 106 H 20 157/98 H 90 04/27/20 07:06 36.7 C 94 H 18 142/89 H 96 04/27/20 04:49 36.6 C 96 H 20 104/66 95 Code Status & VTE Plan VTE Prophylaxis Plan VTE Prophylaxis will be ordered: Yes
[2020-04-27] MEDS ORDERED: SODIUM CHLORIDE 0.9% 1000ML 1,000 ML IV SCH (15:45)
[2020-04-27] MEDS ORDERED: fentaNYL citrate 100 MCG/2 ML VIAL IV PRN (15:49)
[2020-04-27] MEDS ORDERED: ATROPINE SULFATE 0.1 MG/ML 10ML SYR IV PRN (15:49)
[2020-04-27] MEDS ORDERED: ePHEDrine sulfate 50 MG/ML AMP IV PRN (15:49)
[2020-04-27] MEDS ORDERED: ONDANSETRON INJ 2 MG/ML 2 ML VIAL IV PRN (15:49)
[2020-04-27] MEDS ORDERED: ONDANSETRON INJ 2 MG/ML 2 ML VIAL ONE (17:05)
--- NOTE | 2020-04-27 17:11 | Fluoroscopy Report ---
[place] ERCP biliary ductal CLINICAL HISTORY: ADD ON ERCP IN [place] COMPARISON STUDY: CT 04/24/2020 FLUOROSCOPY TIME: 45 seconds NUMBER OF FLUOROSCOPIC IMAGES: 3 FINDINGS: Retrograde opacification of the common bile duct as well as ductal as well as distal aspect of the pancreatic duct. No major filling defect within limitations of overlying radiopaque materials . IMPRESSION: Image intensifier support for ERCP evaluation. ACT 112: Negative or not required by law. The above report was generated using voice recognition software. It may contain grammatical, syntax or spelling errors. Electronically signed by: Yash Martinez M.D. 04/27/2020 5:10 PM
--- NOTE | 2020-04-27 17:21 | Anesthesiology Progress Note ---
Date of Service April 27, 2020 Anesthesia Post Procedure Vital Signs Vital Signs: Temp Pulse Pulse Pulse Resp BP BP 04/27/20 17:10 83 16 127/85 04/27/20 17:00 36.2 C L 84 16 119/77 04/27/20 15:30 36.7 C 81 18 160/100 H 04/27/20 15:17 36.8 C 90 18 165/107 H 04/27/20 14:20 78 04/27/20 11:00 36.5 C 106 H 20 157/98 H 04/27/20 07:06 36.7 C 94 H 18 142/89 H 04/27/20 04:49 36.6 C 96 H 20 104/66 04/27/20 02:08 97 H 04/26/20 23:55 36.6 C 88 20 128/80 04/26/20 20:44 36.3 C L 85 16 139/88 Pulse Ox 04/27/20 17:10 100 04/27/20 17:00 100 04/27/20 15:30 97 04/27/20 15:17 92 04/27/20 14:20 04/27/20 11:00 90 04/27/20 07:06 96 04/27/20 04:49 95 04/27/20 02:08 04/26/20 23:55 96 04/26/20 20:44 95 Pain Intensity Abdomen: Pain Intensity: 3 Transfer of Care Handoff Completed per policy Notes Mental Status: alert / awake / arousable and participated in evaluation Patient Amnestic to Procedure: Yes Nausea / Vomiting: adequately controlled Pain: adequately controlled Airway Patency, RR, SpO2: stable & adequate BP & HR: stable & adequate Hydration State: stable & adequate Anesthetic Complications: no major complications apparent and Pt Satisfied with anesthetic care
--- NOTE | 2020-04-27 19:16 | Operative Report (OR) ---
DATE: 04/27/2020 The patient underwent an ERCP this afternoon for his abdominal pain and abnormal liver tests. The procedure was successfully completed without complications. The patient's bile duct was slightly dilated. There were no visible stones in the duct at the time of cannulation and injection of contrast. 3 mm of sphincterotomy was performed and the duct was swept twice with an 8.5 mm balloon and a small amount of sludge was removed. The duct was then shot again with contrast and no filling defects or abnormalities were seen. The patient tolerated the procedure well. He will continue on antibiotics and undergo laparoscopic cholecystectomy tomorrow with Dr. Petit.
[2020-04-27] MEDS: TAMSULOSIN HCL 0.4 MG CAP PO SCH (19:56)
[2020-04-27] MEDS: ATORVASTATIN 10 MG TAB PO SCH (19:56)
[2020-04-27] MEDS: BIMATOPROST 0.01% OP SOLN 2.5 ML BTL OP SCH (21:27)
[2020-04-28] MEDS: MoRPHine SULFATE 4 MG/ML 1 ML CARP\\VIAL IV PRN (01:21)
[2020-04-28] MEDS: CIPROFLOXACIN / D5W 400 MG/200 ML BAG IV SCH ×2 (01:21→14:39)
[2020-04-28 07:51] LABS: Basophils # (auto) 0.01 K/uL (0-0.2); Basophils % (auto) 0.2 %; Eosinophils # (auto) 0.37 K/uL (0-0.5); Eosinophils % (auto) 8.8 %; Hematocrit (blood only) 31.2 % (42-52); Hemoglobin 11.1 g/dL (14.0-18.0); Immature Granulocytes # (auto) 0.03 K/uL (0.00-0.02); Immature Granulocytes % (auto) 0.7 %; Lymphocytes # (auto) 0.75 K/uL (1.2-3.4); Lymphocytes % (auto) 17.8 %; Mean Corpuscular Hemoglobin 35.4 pg (25-34); Mean Corpuscular Hgb Conc 35.6 g/dL (32-36); Mean Corpuscular Volume 99.4 fL (80-100); Mean Platelet Volume 8.6 fL (7.4-10.4); Monocytes # (auto) 0.69 K/uL (0.11-0.59); Monocytes % (auto) 16.4 %; Neutrophils # (auto) 2.37 K/uL (1.4-6.5); Neutrophils % (auto) 56.1 %; Platelet Count 191 K/uL (130-400); RDW Coefficient of Variation 13.3 % (11.5-14.5); RDW Standard Deviation 47.8 fL (36.4-46.3); Red Blood Count 3.14 M/uL (4.7-6.1); White Blood Count 4.22 K/uL (4.8-10.8)
[2020-04-28 08:27] LABS: Albumin Level 2.6 gm/dl (3.4-5.0); BUN Creatinine Ratio 15.1 (10-20); Calcium 8.2 mg/dl (8.5-10.1); Creatinine Clr Calc Pharmacy 83.8 ml/min; Est GFR (African American) 103.5; Est GFR (Non-African American) 89.3; Potassium 4.3 mmol/L (3.5-5.1)
[2020-04-28 08:34] LABS: Albumin Globulin Ratio 0.9 (0.9-2); Bilirubin,Total 2.8 mg/dl (0.2-1); Globulin 2.8 gm/dl (2.5-4.0); Total Protein 5.4 gm/dl (6.4-8.2)
[2020-04-28] MEDS: TRIAMCINOLONE ACET 0.1% CR 15 GM TUBE TOP SCH (08:38)
[2020-04-28] MEDS: CETIRIZINE HCL 10 MG TABLET PO SCH (08:38)
[2020-04-28] MEDS: PANTOprazole 40 MG TAB PO SCH ×2 (08:38→21:35)
[2020-04-28] MEDS: MAGNESIUM OXIDE 400 MG TAB PO SCH ×2 (08:38→21:33)
[2020-04-28] MEDS: MULTIVITAMIN TAB PO SCH (08:38)
[2020-04-28] MEDS: METOPROLOL SUCC 50MG EXT REL TAB PO SCH (08:38)
[2020-04-28] MEDS: UMECLIDINIUM BROMIDE 62.5MCG/BLISTER 7 PUFFS/INHALER INH SCH (08:39)
[2020-04-28] MEDS: ARTIFICIAL TEARS OP SCH (08:39)
[2020-04-28] MEDS: FLUTICASONE/VILANTEROL 100/25MCG 14 PUFFS/INHALER INH SCH (08:39)
[2020-04-28] MEDS: DICLOFENAC SOD 1% GEL 100 GM TUBE EXT SCH ×4 (08:39→21:34)
[2020-04-28] MEDS: D5W AND 1/2NSS + 20MEQ KCL 20 MEQ/1,000 ML BAG IV SCH (09:38)
--- NOTE | 2020-04-28 10:24 | History & Physical Bridge Note ---
Date of Service April 28, 2020 History & Physical Bridge Note I have examined the patient, reviewed the History & Physical and in the interval since the performance of the History & Physical I have noted the following changes of clinical significance: no changes noted feeling well. LFT's improving. for monty castro today. questions answered.
[2020-04-28] MEDS ORDERED: LIDOCAINE HCL 2% 2 ML VIAL/AMP(20MG/ML) INFIL ONE (10:55)
[2020-04-28] MEDS ORDERED: ONDANSETRON INJ 2 MG/ML 2 ML VIAL ONE (10:55)
[2020-04-28] MEDS ORDERED: fentaNYL citrate 100 MCG/2 ML VIAL ONE ×2 (10:55→13:29)
[2020-04-28] MEDS ORDERED: ETOMIDATE 2 MG/ML 20 ML VIAL IV ONE (10:55)
[2020-04-28] MEDS ORDERED: PROPOFOL IV EMULSION 10 MG/ML 20 ML VIAL IV ONE (10:55)
[2020-04-28] MEDS ORDERED: EPINEPHrine INJ 1 MG/ML AMP ONE (11:39)
[2020-04-28] MEDS ORDERED: BUPIVACAINE 0.5 % 5 MG/1 ML MPF 30ML VIAL ONE (11:39)
--- NOTE | 2020-04-28 12:03 | Anesthesiology Consultation ---
Date of Service April 28, 2020 Assessment & Plan (1) Encounter for pre-operative examination: History Surgery Operation Date: 04/26/20 11:30 Proposed Procedures p Endoscopic Retrograde Cholangiopancreatogram - Arnel Alfaro Operation Date: 04/27/20 09:00 Proposed Procedures p Endoscopic Retrograde Cholangiopancreatogram - Arnel Alfaro Operation Date: 04/28/20 11:10 Proposed Procedures p Laparoscopic Cholecystectomy - Benedicto Petit, Height/Weight Height: 5 ft 5 in Weight: 82.9 kg Allergies Allergy/AdvReac Type Severity Reaction Status Date / Time ketorolac Allergy Unknown . 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 Dust Mite Extract Allergy Unknown seasonal Uncoded 04/28/20 11:12 type allergies Medications Home Medications Medication Instructions Recorded Confirmed Last Taken apixaban 5 mg tablet 5 mg PO BID #180 tab 05/26/19 04/24/20 04/23/20 cetirizine 10 mg tablet 10 mg PO DAILY tab 07/30/19 04/24/20 04/23/20 cholecalciferol (vitamin D3) 25 1,000 units PO DAILY tab 07/30/19 04/24/20 04/23/20 mcg (1,000 unit) tablet multivitamin 1 tab PO DAILY tab 07/30/19 04/24/20 04/23/20 bimatoprost 0.01 % eye drops 1 drops OP QPM 09/15/19 04/24/20 04/23/20 polyvinyl alcohol 1.4 % eye drops 1 drops OP DAILY 09/15/19 04/24/20 04/23/20 atorvastatin 10 mg PO HS 11/04/19 04/24/20 04/23/20 fluticasone propionate 50 2 sprays INTRANASAL DAILY PRN #48 11/20/19 04/24/20 Unknown mcg/actuation nasal gm spray,suspension magnesium oxide 400 mg (241.3 mg 400 mg PO BID #180 tab 12/02/19 04/24/20 magnesium) tablet tamsulosin 0.4 mg capsule 0.4 mg PO HS #90 cap 01/07/1404/24/20 04/23/20 tiotropium bromide 18 mcg capsule 18 mcg INHALATION DAILY #90 puffs 12/02/19 04/24/20 04/23/20 with inhalation device omeprazole 10 mg capsule,delayed 20 mg PO BID #360 cap 12/04/19 04/24/20 04/23/20 release emollient 1 appln TOP DAILY gm 12/29/19 04/24/20 04/23/20 mineral oil-hydrophil petrolat 1 appln TOP DAILY gm 12/29/19 04/24/20 04/23/20 triamcinolone acetonide 0.1 % 1 appln TOP DAILY 12/29/19 04/24/20 04/23/20 topical cream metoprolol tartrate 25 mg tablet 25 mg PO DAILY PRN #30 tab 01/13/20 04/24/20 Unknown fluticasone furoate 100 1 puffs INH DAILY #60 ea 03/07/20 04/24/20 04/23/20 mcg-vilanterol 25 mcg/dose inhalation powder lorazepam 0.5 mg tablet 0.5 mg PO .COMPLEX PRN #2 tab 04/14/20 04/24/20 Unknown metoprolol succinate 50 mg PO DAILY 04/24/20 04/24/20 04/23/20 Active Medications Generic Name Dose Route Start Last Admin Trade Name Freq PRN Reason Stop Dose Admin Artificial Tears 1 drops 04/24/20 09:00 04/28/20 08:39 Artificial Tears OP 05/24/20 08:59 1 drops DAILY NICK Administration Atorvastatin Calcium 10 mg 04/24/20 21:00 04/27/20 19:56 Lipitor PO 05/24/20 20:59 10 mg HS NICK Administration Bimatoprost 1 drops 04/24/20 21:00 04/27/20 21:27 Lumigan 0.01% OP 05/24/20 20:59 1 drops QPM NICK Administration Cetirizine HCl 10 mg 04/24/20 09:00 04/28/20 08:38 Zyrtec PO 05/24/20 08:59 10 mg DAILY NICK Administration Diclofenac Sodium 2 gm 04/24/20 17:00 04/28/20 08:39 Voltaren 1% Top EXT 05/24/20 16:59 2 gm QID NICK Administration Fluticasone/Vilanterol 1 puffs 04/24/20 09:00 04/28/20 08:39 Breo Ellipta 100/25 Mcg Inh INH 05/24/20 08:59 1 puffs DAILY NICK Administration Potassium Chloride/Dextrose/Sod Cl 20 meq in 1,000 mls @ 100 mls/hr 04/24/20 13:30 04/28/20 09:38 D5w And 1/2nss + 20meq Kcl IV 05/24/20 13:29 100 mls/hr .Q10H NICK Administration Ciprofloxacin 400 mg in 200 mls @ 100 mls/hr 04/25/20 14:00 04/28/20 03:18 Cipro IV 05/05/20 13:59 Infused Q12H NICK Infusion Magnesium Oxide 400 mg 04/24/20 09:00 04/28/20 08:38 Mag-Ox PO 05/24/20 08:59 400 mg BID NICK Administration Metoprolol Succinate 50 mg 04/24/20 09:00 04/28/20 08:38 Toprol Xl PO 05/24/20 08:59 50 mg DAILY NICK Administration Morphine Sulfate 4 mg 04/24/20 10:42 04/28/20 01:21 Morphine Sulfate IV 05/08/20 10:41 4 mg Q4H PRN Administration Pain Multivitamins 1 tab 04/24/20 09:00 04/28/20 08:38 Multivitamin Tab PO 05/24/20 08:59 1 tab DAILY NICK Administration Ondansetron HCl 4 mg 04/24/20 09:26 04/26/20 02:54 Zofran IV 05/24/20 09:25 4 mg Q6H PRN Administration Nausea Pantoprazole Sodium 40 mg 04/24/20 09:00 04/28/20 08:38 Protonix PO 05/24/20 08:59 40 mg BID NICK Administration Tamsulosin HCl 0.4 mg 04/24/20 21:00 04/27/20 19:56 Flomax PO 05/24/20 20:59 0.4 mg HS NICK Administration Triamcinolone Acetonide 1 appln 04/24/20 09:00 04/28/20 08:38 Kenalog 0.1% TOP 05/24/20 08:59 1 appln DAILY NICK Administration Umeclidinium [place] 1 puffs 04/24/20 09:00 04/28/20 08:39 Incruse Ellipta INH 05/24/20 08:59 1 puffs DAILY NICK Administration NPO Date Last Intake of Fluids: 04/26/20 Time Last Intake of Fluids: 08:00 Last Intake of Fluids Comment: sips with meds Date Last Intake of Solids: 04/23/20 Time Last Intake of Solids: 18:00 Last Intake of Solids Comment: dinner Past Medical History Medical History Anemia (Chronic) Anticoagulant long-term use (Chronic) 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) Carotid artery plaque (Resolved) Chronic hyponatremia (Chronic) Closed head injury (Inactive) Congenital nystagmus Drug-induced lupus erythematosus Emphysema lung (Chronic) Factor V Leiden mutation (Chronic) Gait disturbance, post-stroke (Chronic) Glaucoma (Chronic) Hyperlipidemia (Chronic) Hypertension (Chronic) Mitral regurgitation (Chronic) 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 Unknown Heart disease Hypertension Pulmonary embolism Sister No problems noted. Denies family history of Ovarian cancer Prostate cancer Diabetes Breast cancer Past Surgical History Surgical History H/O hernia repair H/O prostate biopsy H/O repair of rotator cuff H/O shoulder surgery History of colonoscopy Past Anesthesia History No Hx of Anesthesia Complications History of PONV No Hx of PONV and No Hx of Motion Sickness Social History Smoking Status: Never smoker Hx Alcohol Use: Yes Alcohol type: beer alcohol intake frequency: 0-2 drinks per day Hx Substance Use: No Physical Exam Vital Signs Last Vital Signs Temp 36.7 C 04/28/20 11:13 Pulse 91 H 04/28/20 11:13 Resp 20 04/28/20 11:13 BP 142/87 H 04/28/20 11:13 Pulse Ox 99 04/28/20 11:13 Testing Laboratory Results 04/28/20 07:22 04/28/20 07:22 PT 12.5 Seconds (9.0-12.0) H 04/23/20 23:40 INR 1.2 (0.9-1.1) H 04/23/20 23:40 Urine Color Yellow 04/24/20 03:35 Urine Appearance Clear (Clear) 04/24/20 03:35 Urine pH 8.5 (4.5-7.5) H 04/24/20 03:35 Ur Specific [place] 1.037 (1.000-1.030) H 04/24/20 03:35 Urine Protein Negative (Negative) 04/24/20 03:35 Urine Glucose (UA) Negative (Negative) 04/24/20 03:35 Urine Ketones Negative (Negative) 04/24/20 03:35 Urine Nitrite Negative (Negative) 04/24/20 03:35 Ur Leukocyte Esterase Negative (Negative) 04/24/20 03:35
[2020-04-28] MEDS ORDERED: HYDROmorphone INJ 1 MG/ML SYRINGE IV PRN (12:06)
[2020-04-28] MEDS ORDERED: ePHEDrine sulfate 50 MG/ML AMP IV PRN (12:06)
[2020-04-28] MEDS ORDERED: ATROPINE SULFATE 0.1 MG/ML 10ML SYR IV PRN (12:06)
[2020-04-28] MEDS ORDERED: fentaNYL citrate 100 MCG/2 ML VIAL IV PRN (12:06)
[2020-04-28] MEDS ORDERED: ONDANSETRON INJ 2 MG/ML 2 ML VIAL IV PRN (12:06)
[2020-04-28] MEDS ORDERED: NEOSTIGMINE METHYLSULFATE 5 MG/5 ML SYR ONE (13:05)
[2020-04-28] MEDS ORDERED: GLYCOPYRROLATE 0.2 MG/ML VIAL ONE (13:05)
[2020-04-28] MEDS ORDERED: ROCURONIUM BROMIDE 10 MG/ML 5 ML VIAL ONE (13:05)
--- NOTE | 2020-04-28 13:20 | Operative Report ---
[facility] Post Operative Report Pre & Post Diagnosis Operation Date: 04/26/20 11:30 <No data on this case meets the specified criteria> Operation Date: 04/27/20 09:00 Pre-Op Diagnosis: abdominal pain, abnormal liver test Post-Op Diagnosis: abdominal pain, abnormal liver test Operation Date: 04/28/20 11:10 Pre-Op Diagnosis: gallstones Post-Op Diagnosis: gallstones I identified the patient and participated in the time-out.: Yes Procedure Operation Date: 04/26/20 11:30 <No data on this case meets the specified criteria> Operation Date: 04/27/20 09:00 Actual Procedures p Endoscopic Retrograde Cholangiopancreatogram(Not Applicable) - Arnel Alfaro Operation Date: 04/28/20 11:10 Actual Procedures p Laparoscopic Cholecystectomy(Not Applicable) - Benedicto Petit DO Surgeon Benedicto Petit DO Finance Assistant jenifer Elder Estimated Blood Loss 20 Findings Consistent with Post-Op Diagnosis Specimens gallbladder Description of Procedure After informed consent was obtained the patient was taken to the operating room and placed in the supine position. After successful intubation the abdomen was sterilely prepped and draped in usual fashion. A periumbilical incision was made with an 11 blade scalpel and carried down through the soft tissue using electrocautery. The anterior rectus fascia was opened using electrocautery and 2 #0 Vicryl stay sutures were placed. The peritoneum was elevated with hemostats and incised under direct vision using Metzenbaum scissors. A finger sweep was performed and a 12 mm Thakur trocar was placed. The abdomen was insufflated to 18 mmHg. The laparoscope was inserted and the abdomen was examined in 360. No gross abnormalities were identified. A subxiphoid 5 mm port and 2 right upper quadrant 5 mm ports were placed under direct vision. The patient was placed in a reverse Trendelenburg position and slightly airplaned to the left. The gallbladder was grasped and elevated superiorly and laterally. A [place] dissector was used to take down adhesions around the neck of the gallbladder. The cystic duct was identified and skeletonized. It was clipped twice proximally and once distally and transected using a laparoscopic scissor. In similar fashion the cystic artery was identified and skeletonized clipped and divided. The gallbladder was removed from the gallbladder fossa with electrocautery. During this process the clip on the gallbladder side fell off releasing a moderate amount of bile into the right upper quadrant. This was immediately re-clipped and the bile irrigated out until all the irrigant was clear. It was placed into an Endo Catch bag. Thorough irrigation was performed. At the end of the procedure there was adequate hemostasis and no evidence of any bile leaks. There was a small amount of generalized oozing from the gallbladder fossa and 2 pieces of Surgicel were placed into the gallbladder fossa to help with hemostasis. A final look around the abdomen showed no other abnormalities. The gallbladder and trochars were all removed and the abdomen was desufflated. The fascia of the camera port was closed using 0 Vicryl in a [id number] fashion. All the wounds were irrigated and closed using 4-0 Monocryl. Marcaine was injected around them for postoperative analgesia and skin glue used as a dressing. The patient was awaken extubated and transferred to recovery in stable condition. My physician's engineer first assistant was present throughout the entire case... helped with prepping the patient. With exposure for trocar placement, as well as retracted the gallbladder throughout the case and also assisted with wound closure and dressing placement. I attest to the content of the Intraoperative Record and any orders documented therein. Any exceptions are noted below.
--- NOTE | 2020-04-28 13:48 | Hospitalist Progress Note ---
Date of Service April 28, 2020 Assessment & Plan (1) Elevated liver function tests: 84 yo M PMHx Factor V Leiden, HTN, sensorineural hearing loss, emphysema, glaucoma, sensory ataxia/post stroke gait disturbance, AFib, and wet macular degeneration admitted for concern for cholelithiasis / cholecystitis. RUQ Abdominal Pain/Choledocholithiasis: - CT showing cholelithiasis, borderline gallbladder wall thickening, and borderline common bile duct wall thickening. ERCP performed yesterday without complication - AST ALT both improved from yesterday at 86 and 136 respectively, alkaline phosphatase remains elevated at 733 up from yesterday, lipase normal. Bilirubin down to 2.8 MRCP limited due to motion, however gallbladder with some sludge and gallstones. - Due for cholecystectomy today - NPO since midnight for that procedure - Morphine 4mg IV q4h for pain, zofran for nausea - Eliquis held for cholecystectomy. last dose 04/23. - On ciprofloxacin for prophylaxis Chronic back pain: Patient with morphine for abdominal pain as above. Heating pad ordered. - Reports a recent history of T6 fracture without fall, which could suggest osteoporosis. History of A. fib with factor V Leiden: Holding Eliquis for procedure today - Will resume tomorrow Metoprolol for rate control -Rate well controlled at present Bilateral lower extremity edema: - Worsened since not being able to be on hydrochlorothiazide. Lasix 40 mg IV given once with improvement in LE swelling. -Will consider outpatient PO dose Doing well now Troponin normal. CXR with no acute process. TTE with normal LVEF, no valvular abnormalities. - APpears euvolemic at present - Encouraged MONA compression stockings and ambulation as tolerated. Hyponatremia, mild asymptomatic: Suspect increase in total body water. Lasix as above. BMP daily continuing to slowly improve - On further review patient has been hyponatremic asymptomatically for past 2 years at least. COPD: Continue Breo. Continue Spiriva. Doing well on room air at present. Hypertension: Continue metoprolol succinate 50 mg p.o. daily. GERD: - Protonix 20 mg twice daily for formulary. Code Status: FULL CODE DVT prophylaxis: Hold in setting of procedure and surgery today and tomorrow; SCDs Diet: NPO, Disposition: Med/Surg with Telemetry pending cholecystectomy today. Hope to d/c home tomorrow am. (2) Chronic hyponatremia: (3) Mitral regurgitation: (4) Peripheral neuropathy: (5) Emphysema lung: (6) Glaucoma: (7) Anticoagulant long-term use: (8) Factor V Leiden mutation: (9) Gait disturbance, post-stroke: (10) Paroxysmal atrial fibrillation: (11) Hypertension: Admission and Anticipated Discharge Date Admission Date: April 24, 2020 Supervising Physician Co-Signing Physician Notes Resident Physician Supervision Note: I independently interviewed and examined the patient and verified the mcdermott history and physical, reviewed labs and image studies, discussed the case with the resident Dr. Schwartz and agree with the findings and care plan. Subjective Mr. Forrest is doing well and very anxious to get this last procedure over with and get out of here. He has some abdominal distension and seems to be constipated as he is having only very small hard bowel movements. He does feel as though he is getting weaker every day that he stays here. Review of Systems Review of Systems: All systems reviewed & are unremarkable except as noted in HPI & below Physical Exam Physical Exam: Constitutional: WD/WN, vitals as above Respiratory: normal respiratory effort, sounds vesicular in all lung [place] Cardiovascular: HR irregularly irregular rhythm, regular rate, no murmurs rubs skips or gallops, trace edema b/l lower extremities, peripheral pulses intact and equal bilaterally. Gastrointestinal (Abdomen): Abdomen distended, mildly tender, soft, no masses detected, no shifting dullness Skin: no rashes, warm and dry Psychiatric: A+Ox3, euthymic affect Results & Data Results & Data ([facility]) Vital Signs (Past 12 Hours) Vital Signs Temp Pulse Resp BP BP Pulse Ox 04/28/20 11:13 36.7 C 91 H 20 142/87 H 99 04/28/20 11:00 36.6 C 83 20 145/82 H 92 04/28/20 07:00 36.4 C L 98 H 18 113/72 91 04/28/20 03:38 36.5 C 91 H 18 110/66 92 Resident Activity Tracking Resident Involvement: Resident Care Provided Care Provided: Adult Hospital Medicine (1) Peripheral neuropathy Peripheral neuropathy type: polyneuropathy, unspecified Qualified Code(s): G62.9 - Polyneuropathy, unspecified (2) Emphysema lung Emphysema type: panlobular Qualified Code(s): J43.1 - Panlobular emphysema
--- NOTE | 2020-04-28 14:02 | Anesthesiology Progress Note ---
Date of Service April 28, 2020 Anesthesia Post Procedure Vital Signs Vital Signs: Temp Pulse Pulse Pulse Resp BP BP 04/28/20 13:50 36.5 C 88 16 151/92 H 04/28/20 13:42 36.2 C L 90 20 139/89 04/28/20 11:13 36.7 C 91 H 20 142/87 H 04/28/20 11:00 36.6 C 83 20 145/82 H 04/28/20 07:00 36.4 C L 98 H 18 113/72 04/28/20 03:38 36.5 C 91 H 18 110/66 04/27/20 23:35 36.5 C 60 18 124/83 04/27/20 23:00 128 H 04/27/20 20:06 36.4 C L 90 16 156/88 H 04/27/20 17:30 36.6 C 90 18 141/88 H 04/27/20 17:20 36.4 C L 80 16 115/81 04/27/20 17:10 83 16 127/85 04/27/20 17:00 36.2 C L 84 16 119/77 04/27/20 15:30 36.7 C 81 18 160/100 H 04/27/20 15:17 36.8 C 90 18 165/107 H 04/27/20 14:20 78 Pulse Ox 04/28/20 13:50 97 04/28/20 13:42 95 04/28/20 11:13 99 04/28/20 11:00 92 04/28/20 07:00 91 04/28/20 03:38 92 04/27/20 23:35 96 04/27/20 23:00 04/27/20 20:06 96 04/27/20 17:30 94 04/27/20 17:20 97 04/27/20 17:10 100 04/27/20 17:00 100 04/27/20 15:30 97 04/27/20 15:17 92 04/27/20 14:20 Pain Intensity Abdomen: Pain Intensity: 2 Transfer of Care Handoff Completed per policy Notes Mental Status: alert / awake / arousable and participated in evaluation Patient Amnestic to Procedure: Yes Nausea / Vomiting: adequately controlled Pain: adequately controlled Airway Patency, RR, SpO2: stable & adequate BP & HR: stable & adequate Hydration State: stable & adequate Anesthetic Complications: no major complications apparent and Pt Satisfied with anesthetic care
[2020-04-28] MEDS ORDERED: MoRPHine SULFATE 2 MG/ML CARP IV PRN (14:27)
[2020-04-28] MEDS ORDERED: HYDROCODONE/ACETAMOPHEN 5/325MG TAB PO PRN (14:27)
[2020-04-28] MEDS: LACTATED RINGER'S 1,000 ML IV SCH (14:39)
[2020-04-28] MEDS: ATORVASTATIN 10 MG TAB PO SCH (21:33)
[2020-04-28] MEDS: TAMSULOSIN HCL 0.4 MG CAP PO SCH (21:33)
[2020-04-28] MEDS: BIMATOPROST 0.01% OP SOLN 2.5 ML BTL OP SCH (21:33)
[2020-04-29] MEDS: LACTATED RINGER'S 1,000 ML IV SCH (01:09)
[2020-04-29] MEDS: MoRPHine SULFATE 4 MG/ML 1 ML CARP\\VIAL IV PRN (01:09)
[2020-04-29] MEDS: CIPROFLOXACIN / D5W 400 MG/200 ML BAG IV SCH ×2 (01:09→12:55)
[2020-04-29 07:13] LABS: Basophils # (auto) 0.01 K/uL (0-0.2); Basophils % (auto) 0.2 %; Eosinophils # (auto) 0.41 K/uL (0-0.5); Hematocrit (blood only) 32.7 % (42-52); Hemoglobin 11.7 g/dL (14.0-18.0); Immature Granulocytes # (auto) 0.03 K/uL (0.00-0.02); Immature Granulocytes % (auto) 0.7 %; Lymphocytes # (auto) 0.77 K/uL (1.2-3.4); Lymphocytes % (auto) 16.8 %; Mean Corpuscular Hemoglobin 35.8 pg (25-34); Mean Corpuscular Hgb Conc 35.8 g/dL (32-36); Mean Platelet Volume 8.4 fL (7.4-10.4); Monocytes # (auto) 0.59 K/uL (0.11-0.59); Monocytes % (auto) 12.9 %; Neutrophils # (auto) 2.76 K/uL (1.4-6.5); Neutrophils % (auto) 60.4 %; Platelet Count 202 K/uL (130-400); RDW Coefficient of Variation 13.2 % (11.5-14.5); RDW Standard Deviation 48.5 fL (36.4-46.3); Red Blood Count 3.27 M/uL (4.7-6.1); White Blood Count 4.57 K/uL (4.8-10.8)
[2020-04-29 07:47] LABS: Albumin Level 2.7 gm/dl (3.4-5.0); BUN Creatinine Ratio 16.4 (10-20); Calcium 8.2 mg/dl (8.5-10.1); Creatinine Clr Calc Pharmacy 82.6 ml/min; Est GFR (African American) 102.9; Est GFR (Non-African American) 88.8; Potassium 4.4 mmol/L (3.5-5.1)
[2020-04-29] MEDS: TRIAMCINOLONE ACET 0.1% CR 15 GM TUBE TOP SCH (07:47)
[2020-04-29] MEDS: UMECLIDINIUM BROMIDE 62.5MCG/BLISTER 7 PUFFS/INHALER INH SCH (07:47)
[2020-04-29] MEDS: FLUTICASONE/VILANTEROL 100/25MCG 14 PUFFS/INHALER INH SCH (07:47)
[2020-04-29] MEDS: PANTOprazole 40 MG TAB PO SCH ×2 (07:48→20:18)
[2020-04-29] MEDS: MULTIVITAMIN TAB PO SCH (07:48)
[2020-04-29] MEDS: MAGNESIUM OXIDE 400 MG TAB PO SCH ×2 (07:48→20:17)
[2020-04-29] MEDS: ARTIFICIAL TEARS OP SCH (07:48)
[2020-04-29] MEDS: DICLOFENAC SOD 1% GEL 100 GM TUBE EXT SCH ×4 (07:48→20:19)
[2020-04-29] MEDS: CETIRIZINE HCL 10 MG TABLET PO SCH (07:48)
[2020-04-29] MEDS: METOPROLOL SUCC 50MG EXT REL TAB PO SCH (07:48)
[2020-04-29 07:51] LABS: Albumin Globulin Ratio 0.9 (0.9-2); Bilirubin,Total 3.9 mg/dl (0.2-1); Globulin 3.1 gm/dl (2.5-4.0); Total Protein 5.8 gm/dl (6.4-8.2)
--- NOTE | 2020-04-29 08:40 | Surgery Progress Note ---
Date of Service April 29, 2020 Assessment & Plan (1) Gallstones: doing well post op LFT's increased overnight. ? etiology. recheck tomorrow would hold eliquis until we are sure he won't need another ERCP Subjective pt seen. feeling well. hungry. pain control adequate. Physical Exam Physical Exam: alert. nad abd: soft. expected tenderness. incisions c/d/i Results & Data Vital Signs (Past 12 Hours) Vital Signs Temp Pulse Pulse Resp BP Pulse Ox 04/29/20 07:46 36.7 C 110 H 20 117/67 91 04/29/20 03:15 37.1 C 96 H 18 115/74 94 04/28/20 23:00 86 04/28/20 22:52 36.7 C 80 18 113/74 PG Care Time/CCT Total # of Minutes Spent Total Time Spent with Patient: Total time spent is greater than 50% in coordination of care (as documented) at patient's floor/unit and/or counseling patient: Coding Level of Care Code None Diagnoses Gallstones K80.20
--- NOTE | 2020-04-29 11:12 | Hospitalist Progress Note ---
Date of Service April 29, 2020 Assessment & Plan (1) Elevated liver function tests: 84 yo M PMHx Factor V Leiden, HTN, sensorineural hearing loss, emphysema, glaucoma, sensory ataxia/post stroke gait disturbance, AFib, and wet macular degeneration admitted for concern for cholelithiasis / cholecystitis. RUQ Abdominal Pain/Choledocholithiasis: - CT showed cholelithiasis, borderline gallbladder wall thickening, and borderline common bile duct wall thickening. ERCP performed followed by cholecstectomy without complication - AST, ALT, Bilirubin and Alk Phos all higher today - Will need to keep patient another day for GI evaluation possible repeat ERCP? - morphine 2mg for pain zofran for nausea - Continuing to hold eliquis last dose 04/23. - continue IV cipro Chronic back pain: Patient with morphine for abdominal pain as above. Heating pad ordered. - Reports a recent history of T6 fracture without fall, which could suggest osteoporosis. History of A. fib with factor V Leiden: Holding Eliquis for possible procedure - Will resume NAZ Metoprolol for rate control -Rate well controlled at present Bilateral lower extremity edema: Troponin normal. CXR with no acute process. TTE with normal LVEF, no valvular abnormalities. - Worsened since not being able to be on hydrochlorothiazide. Lasix 40 mg IV given once with improvement in LE swelling. -Will consider outpatient PO dose - APpears euvolemic at present - Encouraged MONA compression stockings and ambulation as tolerated. Hyponatremia, mild asymptomatic: Suspect increase in total body water. Lasix as above. BMP daily continuing to slowly improve - On further review patient has been hyponatremic asymptomatically for past 2 years at least. COPD: Continue Breo. Continue Spiriva. Doing well on room air at present. Hypertension: Continue metoprolol succinate 50 mg p.o. daily. GERD: - Protonix 20 mg twice daily for formulary. Code Status: FULL CODE DVT prophylaxis: Hold in setting of procedure and surgery today and tomorrow; SCDs Diet: NPO, Disposition: Med/Surg with Telemetry pending GI evaluation for further intervention. Hope to resume anticoagulation and D/C tomorrow am (2) Chronic hyponatremia: (3) Mitral regurgitation: (4) Peripheral neuropathy: (5) Emphysema lung: (6) Glaucoma: (7) Anticoagulant long-term use: (8) Factor V Leiden mutation: (9) Gait disturbance, post-stroke: (10) Paroxysmal atrial fibrillation: (11) Hypertension: Admission and Anticipated Discharge Date Admission Date: April 24, 2020 Supervising Physician Co-Signing Physician Notes Resident Physician Supervision Note: I independently interviewed and examined the patient and verified the mcdermott history and physical, reviewed labs and image studies, discussed the case with the resident Dr. Schwartz and agree with the findings and care plan. Subjective Mr. Forrest is feeling well this morning, denies abdominal pain has been feeling hungry and tolerating liquids well. Initially evaluated patient early this morning before lab results were in and hoped to be able to discharge patient, but on review of labs patient is having a new worsening of his liver enzymes in an obstructive pattern. AST ALT, total bili, and alk phos have all increased from yesterday. Review of Systems Review of Systems: All systems reviewed & are unremarkable except as noted in HPI & below Physical Exam Physical Exam: Constitutional: WD/WN, vitals as above Respiratory: normal respiratory effort, sounds vesicular in all lung parish Cardiovascular: HR irregularly irregular rhythm, regular rate, no murmurs rubs skips or gallops, trace edema b/l lower extremities, peripheral pulses intact and equal bilaterally. Gastrointestinal (Abdomen): Abdomen distended, mildly tender, soft, no masses detected, no shifting dullness Skin: no rashes, warm and dry Psychiatric: A+Ox3, euthymic affect Results & Data Results & Data ([facility]) Vital Signs (Past 12 Hours) Vital Signs Temp Pulse Pulse Resp BP Pulse Ox 04/29/20 09:00 97 H 04/29/20 07:46 36.7 C 110 H 20 117/67 91 04/29/20 03:15 37.1 C 96 H 18 115/74 94 04/28/20 23:00 86 04/28/20 22:52 36.7 C 80 18 113/74 Resident Activity Tracking Resident Involvement: Resident Care Provided Care Provided: Adult Hospital Medicine (1) Peripheral neuropathy Peripheral neuropathy type: polyneuropathy, unspecified Qualified Code(s): G62.9 - Polyneuropathy, unspecified (2) Emphysema lung Emphysema type: panlobular Qualified Code(s): J43.1 - Panlobular emphysema
--- NOTE | 2020-04-29 17:02 | Progress Notes ---
DATE: 04/29/2020 SUBJECTIVE: Today is postop day 1 from laparoscopic cholecystectomy. The patient had severe chronic cholecystitis with gallstones and the procedure was completed successfully. He has been up twice today and walked in the halls and is eating solid food and is feeling much better. He continues to remain off Eliquis. His liver tests are still elevated and I did question him and he was taking between 4 and 5 grams of Tylenol prior to coming into the hospital, which I am sure is probably factoring into why his liver tests are lagging behind a little bit. There were no common bile duct stones on his ERCP, just had a little bit of sludge. IMPRESSION: The patient is improving. His abdominal pain has resolved since he had his laparoscopic cholecystectomy. His abdomen is showing that the incision sites are healing well. His liver tests I expect to lag behind somewhat because of the high dose of acetaminophen that he was taking prior to hospitalization. I have advised him not to exceed 2 grams of acetaminophen in a 24-hour period going forward.
[2020-04-29] MEDS: HYDROCODONE/ACETAMOPHEN 5/325MG TAB PO PRN (20:16)
[2020-04-29] MEDS: ATORVASTATIN 10 MG TAB PO SCH (20:17)
[2020-04-29] MEDS: TAMSULOSIN HCL 0.4 MG CAP PO SCH (20:18)
[2020-04-29] MEDS: BIMATOPROST 0.01% OP SOLN 2.5 ML BTL OP SCH (20:20)
[2020-04-30] MEDS: CIPROFLOXACIN / D5W 400 MG/200 ML BAG IV SCH ×2 (03:18→14:16)
[2020-04-30] MEDS: HYDROCODONE/ACETAMOPHEN 5/325MG TAB PO PRN (04:58)
[2020-04-30 07:20] LABS: Hematocrit (blood only) 31.2 % (42-52); Mean Corpuscular Hemoglobin 35.3 pg (25-34); Mean Corpuscular Hgb Conc 35.3 g/dL (32-36); Mean Platelet Volume 8.1 fL (7.4-10.4); Platelet Count 203 K/uL (130-400); RDW Standard Deviation 47.1 fL (36.4-46.3); Red Blood Count 3.12 M/uL (4.7-6.1); White Blood Count 4.98 K/uL (4.8-10.8)
[2020-04-30 08:09] LABS: Albumin Level 2.5 gm/dl (3.4-5.0); BUN Creatinine Ratio 21.6 (10-20); Bilirubin Direct 5.7 mg/dl (0-0.2); Bilirubin,Total 7.1 mg/dl (0.2-1); Calcium 8.1 mg/dl (8.5-10.1); Creatinine Clr Calc Pharmacy 75.3 ml/min; Est GFR (African American) 98.2; Est GFR (Non-African American) 84.7; Potassium 3.9 mmol/L (3.5-5.1); Total Protein 5.3 gm/dl (6.4-8.2)
[2020-04-30] MEDS: MULTIVITAMIN TAB PO SCH (08:48)
[2020-04-30] MEDS: MAGNESIUM OXIDE 400 MG TAB PO SCH ×2 (08:48→20:26)
[2020-04-30] MEDS: CETIRIZINE HCL 10 MG TABLET PO SCH (08:48)
[2020-04-30] MEDS: PANTOprazole 40 MG TAB PO SCH ×2 (08:49→20:26)
[2020-04-30] MEDS: METOPROLOL SUCC 50MG EXT REL TAB PO SCH (08:49)
[2020-04-30] MEDS: ARTIFICIAL TEARS OP SCH (08:49)
[2020-04-30] MEDS: FLUTICASONE/VILANTEROL 100/25MCG 14 PUFFS/INHALER INH SCH (08:50)
[2020-04-30] MEDS: UMECLIDINIUM BROMIDE 62.5MCG/BLISTER 7 PUFFS/INHALER INH SCH (08:50)
[2020-04-30] MEDS: DICLOFENAC SOD 1% GEL 100 GM TUBE EXT SCH ×4 (08:51→20:27)
[2020-04-30] MEDS: TRIAMCINOLONE ACET 0.1% CR 15 GM TUBE TOP SCH (08:53)
--- NOTE | 2020-04-30 10:13 | Surgery Progress Note ---
Date of Service S/P ERCP, Lap gloria POD 3, pt's LFT is still increase, T-bili 7.1, pt has mild RUQ pain, no nausea, no vomiting, no fever, normal WBC April 30, 2020 Assessment & Plan (1) Elevated liver function tests: still high bilirubin, re-consult GI doctor for high bilirubin repeat labs in am, will F/U Supervising Physician Co-Signing Physician Notes Resident Physician Supervision Note: I independently interviewed and examined the patient and verified the mcdermott history and physical, reviewed labs and image studies, discussed the case with the resident Dr. Schwartz and agree with the findings and care plan. Subjective Mr. Forrest is feeling well this morning, denies abdominal pain has been feeling hungry and tolerating liquids well. Initially evaluated patient early this morning before lab results were in and hoped to be able to discharge patient, but on review of labs patient is having a new worsening of his liver enzymes in an obstructive pattern. AST ALT, total bili, and alk phos have all increased from yesterday. Physical Exam Constitutional: WD/WN, vitals as above well developed and well nourished Eyes: PERRL, conjunctivae normal, anicteric sclerae ENMT: external ear and nose normal, oropharynx normal Neck: trachea midline, no thyromegaly Respiratory: normal respiratory effort, lungs clear to auscultation Cardiovascular: RRR, no murmur, no edema Gastrointestinal (Abdomen): Percussion/Palpation: abdomen soft mild tenderness at RUQ, no rebound pain, BS +, no distend, Skin: no rashes, warm and dry Neurologic: awake Psychiatric: Orientation: alert and oriented x 3 Results & Data Vital Signs (Past 12 Hours) Vital Signs Temp Pulse Pulse Resp BP BP Pulse Ox 04/30/20 06:36 36.6 C 94 H 18 115/71 93 04/30/20 04:17 36.7 C 101 H 18 145/83 H 93 04/30/20 01:35 85 04/29/20 23:45 36.8 C 93 H 18 128/76 94 Laboratory Results Abnormal lab results 04/30/20 04/30/20 Range/Units 07:12 07:12 RBC 3.12 L (4.7-6.1) M/uL Hgb 11.0 L (14.0-18.0) g/dL Hct 31.2 L (42-52) % MCH 35.3 H (25-34) pg RDW Std Deviation 47.1 H (36.4-46.3) fL Sodium 125 L (136-145) mmol/L Chloride 93 L (98-107) mmol/L BUN/Creatinine Ratio 21.6 H (10-20) Glucose 103 H (70-99) mg/dl Calcium 8.1 L (8.5-10.1) mg/dl Total Bilirubin 7.1 H D (0.2-1) mg/dl Direct Bilirubin 5.7 H (0-0.2) mg/dl AST 148 H (15-37) U/L ALT 171 H (12-78) U/L Alkaline Phosphatase 986 H (45-117) U/L Total Protein 5.3 L (6.4-8.2) gm/dl Albumin 2.5 L (3.4-5.0) gm/dl
[2020-04-30] MEDS: ONDANSETRON INJ 2 MG/ML 2 ML VIAL IV PRN (12:49)
--- NOTE | 2020-04-30 13:34 | Progress Notes ---
DATE: 04/30/2020 SUBJECTIVE: The patient is postop day 2 for cholecystectomy. His abdominal incisions are healing well. He has a little bit of tenderness around the umbilical incision. He is tolerating solid food. He is afebrile. His white count is normal. Of concern is that his liver tests are actually getting worse. His bilirubin is up to 7.1 today with 5.7 direct. AST 148, ALT 171 which are stable. Alkaline phosphatase has increased to 986. The patient remains off Eliquis and on IV Cipro. IMPRESSION: The patient's abnormal liver tests are concerning. He was on a high dose of acetaminophen prior to coming into the hospital and this could represent some evolving hepatotoxicity from that, but I am concerned that he may have a retained stone following his cholecystectomy and recommend that we proceed with an ERCP tomorrow morning as the patient has eaten breakfast and lunch today. I discussed this with the patient and will hopefully do this tomorrow morning.
--- NOTE | 2020-04-30 14:18 | Hospitalist Progress Note ---
Date of Service April 30, 2020 Assessment & Plan (1) Elevated liver function tests: 84 yo M PMHx Factor V Leiden, HTN, sensorineural hearing loss, emphysema, glaucoma, sensory ataxia/post stroke gait disturbance, AFib, and wet macular degeneration admitted for concern for cholelithiasis / cholecystitis. RUQ Abdominal Pain/Choledocholithiasis: - s/p lap gloria POD#2; relieved of abdominal pain, most discomfort around surgical site but this has continued to improve - AST, ALT, Bilirubin and Alk Phos continuing to elevate this AM; initial rise thought to be due to patients consumption of acetaminophen - GI concerned that this represents a retained stone following lap gloria, ERCP in AM - morphine 2mg for pain zofran for nausea - continue Cipro for total of 10 days Chronic back pain: - Patient with morphine for abdominal pain as above. - Heating pad ordered. - Reports a recent history of T6 fracture without fall, which could suggest osteoporosis. History of A. fib with factor V Leiden: - Holding Eliquis for possible procedure; last dose 04/23 - Will resume NAZ - Metoprolol for rate control - Rate well controlled at present Bilateral lower extremity edema: - Worsened since not being able to be on hydrochlorothiazide - Lasix 40 mg IV given once with improvement in LE swelling - Troponin normal. - CXR with no acute process. - TTE 04/24 demonstrated normal LV function, no valvular abnormalities - Appears euvolemic at present - Encouraged MONA compression stockings and ambulation as tolerated. Hyponatremia, mild asymptomatic: - patient has been hyponatremic asymptomatically for past 2 years at least. COPD: - Continue Breo. - Continue Spiriva. Hypertension: - Continue metoprolol succinate 50 mg p.o. daily. GERD: - Protonix 20 mg twice daily for formulary. Code Status: FULL CODE DVT prophylaxis: Hold in setting of procedure tomorrow; SCDs Diet: NPO at midnight for ERCP in AM Admission and Anticipated Discharge Date Admission Date: April 24, 2020 Supervising Physician Co-Signing Physician Notes Resident Physician Supervision Note: I independently interviewed and examined the patient and verified the mcdermott history and physical, reviewed labs and image studies, discussed the case with the resident Dr. Marti and agree with the findings and care plan. Subjective Patient continues to feel well this AM, only having mild abdominal discomfort around surgical site that he says has continued to improve since surgery. Denies nausea or vomiting, or return to worsened abdominal pain overnight. Endorses a bowel movement overnight, which provided continued relief of discomfort and he felt was long over-due given his last bowel movement was before coming to the hospital. Review of Systems Review of Systems: All systems reviewed & are unremarkable except as noted in Subjective Physical Exam Constitutional: WD/WN, vitals as above Eyes: PERRL, conjunctivae normal, anicteric sclerae Respiratory: normal respiratory effort, lungs clear to auscultation Cardiovascular: Rate/Rhythm: regular rate and regular rhythm Heart Sounds: no gallop, no murmur and no cardiac rub Vessels: no JVD Extremities: no e kamryn Gastrointestinal (Abdomen): normal bowel sounds, soft, nontender, no hepatosplenomegaly Musculoskeletal: no cyanosis or clubbing, extremities motor strength 5/5 Skin: no rashes, warm and dry Psychiatric: A+Ox3, euthymic affect Results & Data Results & Data ([facility]) Vital Signs (Past 12 Hours) Vital Signs Temp Pulse Pulse Resp BP Pulse Ox 04/30/20 11:30 36.7 C 95 H 20 122/83 94 04/30/20 08:00 94 H 04/30/20 06:36 36.6 C 94 H 18 115/71 93 04/30/20 04:17 36.7 C 101 H 18 145/83 H 93 Laboratory Results 04/30/20 04/30/20 Range/Units 07:12 07:12 WBC 4.98 (4.8-10.8) K/uL RBC 3.12 L (4.7-6.1) M/uL Hgb 11.0 L (14.0-18.0) g/dL Hct 31.2 L (42-52) % MCV 100.0 (80-100) fL MCH 35.3 H (25-34) pg MCHC 35.3 (32-36) g/dL RDW Std Deviation 47.1 H (36.4-46.3) fL RDW Coeff of Henry 13.0 (11.5-14.5) % Plt Count 203 (130-400) K/uL MPV 8.1 (7.4-10.4) fL Sodium 125 L (136-145) mmol/L Potassium 3.9 (3.5-5.1) mmol/L Chloride 93 L (98-107) mmol/L Carbon Dioxide 25 (21-32) mmol/L Anion Gap 7.0 (3-11) BUN 16 (7-18) mg/dl Creatinine 0.74 (0.6-1.4) mg/dl Est Cr Clr Drug Dosing 75.3 ml/min Est GFR ( Amer) 98.2 Est GFR (Non-Af Amer) 84.7 BUN/Creatinine Ratio 21.6 H (10-20) Glucose 103 H (70-99) mg/dl Calcium 8.1 L (8.5-10.1) mg/dl Total Bilirubin 7.1 H D (0.2-1) mg/dl Direct Bilirubin 5.7 H (0-0.2) mg/dl AST 148 H (15-37) U/L ALT 171 H (12-78) U/L Alkaline Phosphatase 986 H (45-117) U/L Total Protein 5.3 L (6.4-8.2) gm/dl Albumin 2.5 L (3.4-5.0) gm/dl Medications Administered Current Inpatient Medications Hydrocodone Bitart/Acetaminophen (Ramona 5/325) 1 tab PO Q4H PRN PRN Reason: Pain Stop: 05/12/20 14:26 Last Admin: 04/30/20 04:58 Dose: 1 tab Documented by: Hydrocodone Bitart/Acetaminophen (Ramona 5/325) 2 tab PO Q4H PRN PRN Reason: Pain Stop: 05/12/20 14:26 Last Admin: 04/29/20 09:18 Dose: 2 tab Documented by: Artificial Tears (Artificial Tears) 1 drops OP DAILY NICK Stop: 05/24/20 08:59 Last Admin: 04/30/20 08:49 Dose: 1 drops Documented by: Atorvastatin Calcium (Lipitor) 10 mg PO HS NICK Stop: 05/24/20 20:59 Last Admin: 04/29/20 20:17 Dose: 10 mg Documented by: Bimatoprost (Lumigan 0.01%) 1 drops OP QPM NICK Stop: 05/24/20 20:59 Last Admin: 04/29/20 20:20 Dose: 1 drops Documented by: Cetirizine HCl (Zyrtec) 10 mg PO DAILY NICK Stop: 05/24/20 08:59 Last Admin: 04/30/20 08:48 Dose: 10 mg Documented by: Diclofenac Sodium (Voltaren 1% Top) 2 gm EXT QID [facility] Stop: 05/24/20 16:59 Last Admin: 04/30/20 12:50 Dose: Not Given Documented by: Fluticasone Propionate (Flonase) 2 sprays NA DAILY PRN PRN Reason: Nasal Congestion Stop: 05/24/20 05:48 Fluticasone/Vilanterol (Breo Ellipta 100/25 Mcg Inh) 1 puffs INH DAILY [facility] Stop: 05/24/20 08:59 Last Admin: 04/30/20 08:50 Dose: 1 puffs Documented by: Ciprofloxacin (Cipro) 400 mg in 200 mls @ 100 mls/hr IV Q12H [facility] Stop: 05/05/20 13:59 Last Infusion: 04/30/20 05:25 Dose: Infused Documented by: Magnesium Oxide (Mag-Ox) 400 mg PO BID [facility] Stop: 05/24/20 08:59 Last Admin: 04/30/20 08:48 Dose: 400 mg Documented by: Metoprolol Succinate (Toprol Xl) 50 mg PO DAILY [facility] Stop: 05/24/20 08:59 Last Admin: 04/30/20 08:49 Dose: 50 mg Documented by: Metoprolol Tartrate (Lopressor) 25 mg PO DAILY PRN PRN Reason: tachycardia Stop: 05/24/20 05:48 Miconazole Nitrate (Desenex) 1 appln EXT PRN PRN PRN Reason: Affected Skin Folds Stop: 05/25/20 21:06 Morphine Sulfate (Morphine Sulfate) 2 mg IV Q2H PRN PRN Reason: Pain Stop: 05/12/20 14:26 Morphine Sulfate (Morphine Sulfate) 4 mg IV Q2H PRN PRN Reason: Pain Stop: 05/12/20 14:26 Last Admin: 04/29/20 01:09 Dose: 4 mg Documented by: Multivitamins (Multivitamin Tab) 1 tab PO DAILY [facility] Stop: 05/24/20 08:59 Last Admin: 04/30/20 08:48 Dose: 1 tab Documented by: Ondansetron HCl (Zofran) 4 mg IV Q6H PRN PRN Reason: Nausea Stop: 05/24/20 09:25 Last Admin: 04/30/20 12:49 Dose: 4 mg Documented by: Pantoprazole Sodium (Protonix) 40 mg PO BID NICK Stop: 05/24/20 08:59 Last Admin: 04/30/20 08:49 Dose: 40 mg Documented by: Tamsulosin HCl (Flomax) 0.4 mg PO HS INCK Stop: 05/24/20 20:59 Last Admin: 04/29/20 20:18 Dose: 0.4 mg Documented by: Triamcinolone Acetonide (Kenalog 0.1%) 1 appln TOP DAILY NICK Stop: 05/24/20 08:59 Last Admin: 04/30/20 08:53 Dose: 1 appln Documented by: Umeclidinium [place] (Incruse Ellipta) 1 puffs INH DAILY NICK Stop: 05/24/20 08:59 Last Admin: 04/30/20 08:50 Dose: 1 puffs Documented by: Resident Activity Tracking Resident Involvement: Resident Care Provided Care Provided: Adult Hospital Medicine
[2020-04-30] MEDS: MoRPHine SULFATE 4 MG/ML 1 ML CARP\\VIAL IV PRN (16:25)
[2020-04-30] MEDS: ATORVASTATIN 10 MG TAB PO SCH (20:26)
[2020-04-30] MEDS: TAMSULOSIN HCL 0.4 MG CAP PO SCH (20:26)
[2020-04-30] MEDS: BIMATOPROST 0.01% OP SOLN 2.5 ML BTL OP SCH (20:27)
[2020-04-30] MEDS ORDERED: METOPROLOL TARTRATE 25 MG TAB PO ONE (22:24)
[2020-05-01] MEDS: CIPROFLOXACIN / D5W 400 MG/200 ML BAG IV SCH ×2 (01:55→13:22)
[2020-05-01] MEDS ORDERED: ONDANSETRON INJ 2 MG/ML 2 ML VIAL ONE (06:49)
[2020-05-01] MEDS ORDERED: PROPOFOL IV EMULSION 10 MG/ML 20 ML VIAL IV ONE (06:49)
[2020-05-01] MEDS ORDERED: SUCCINYLCHOLINE CHLORIDE 20 MG/ML 10 ML VIAL IV ONE (06:49)
[2020-05-01] MEDS ORDERED: fentaNYL citrate 100 MCG/2 ML VIAL ONE (06:49)
[2020-05-01] MEDS ORDERED: DEXAMETHASONE SOD INJ 4 MG/ML VIAL ONE (06:49)
[2020-05-01] MEDS ORDERED: LIDOCAINE HCL 2% 2 ML VIAL/AMP(20MG/ML) INFIL ONE (06:49)
[2020-05-01] MEDS ORDERED: SODIUM CHLORIDE 0.9% 1000ML 1,000 ML IV SCH (07:15)
--- NOTE | 2020-05-01 07:17 | History & Physical Report ---
Date of Service May 01, 2020 History of Present Illness Chief Complaint: abnl lft's Primary Care Provider: Ayad Lozano MD For ERCP Allergies Allergy/AdvReac Type Severity Reaction Status Date / Time ketorolac Allergy Unknown . 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 Home Medications Home Medications Medication Instructions Recorded Confirmed Type apixaban 5 mg tablet 5 mg PO BID #180 tab 05/26/19 04/24/20 Rx cetirizine 10 mg tablet 10 mg PO DAILY tab 07/30/19 04/24/20 History cholecalciferol (vitamin D3) 25 1,000 units PO DAILY tab 07/30/19 04/24/20 History mcg (1,000 unit) tablet multivitamin 1 tab PO DAILY tab 07/30/19 04/24/20 History bimatoprost 0.01 % eye drops 1 drops OP QPM 09/15/19 04/24/20 History polyvinyl alcohol 1.4 % eye drops 1 drops OP DAILY 09/15/19 04/24/20 History atorvastatin 10 mg PO HS 11/04/19 04/24/20 History fluticasone propionate 50 2 sprays INTRANASAL DAILY PRN #48 11/20/19 04/24/20 Rx mcg/actuation nasal gm spray,suspension magnesium oxide 400 mg (241.3 mg 400 mg PO BID #180 tab 12/02/19 04/24/20 Rx magnesium) tablet tamsulosin 0.4 mg capsule 0.4 mg PO HS #90 cap 12/02/19 04/24/20 Rx tiotropium bromide 18 mcg capsule 18 mcg INHALATION DAILY #90 puffs 12/02/19 04/24/20 Rx with inhalation device omeprazole 10 mg capsule,delayed 20 mg PO BID #360 cap 12/04/19 04/24/20 Rx release emollient 1 appln TOP DAILY gm 12/29/19 04/24/20 History mineral oil-hydrophil petrolat 1 appln TOP DAILY gm 12/29/19 04/24/20 History triamcinolone acetonide 0.1 % 1 appln TOP DAILY 12/29/19 04/24/20 History topical cream metoprolol tartrate 25 mg tablet 25 mg PO DAILY PRN #30 tab 01/13/20 04/24/20 Rx fluticasone furoate 100 1 puffs INH DAILY #60 ea 03/07/20 04/24/20 Rx mcg-vilanterol 25 mcg/dose inhalation powder lorazepam 0.5 mg tablet 0.5 mg PO .COMPLEX PRN #2 tab 04/14/20 04/24/20 Rx metoprolol succinate 50 mg PO DAILY 04/24/20 04/24/20 History hydrocodone-acetaminophen [[place]] 1 - 2 tab PO .q4-6h PRN #12 tab 04/29/20 Rx Past Med/Surg History Medical History Anemia (Chronic) Anticoagulant long-term use (Chronic) 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) Carotid artery plaque (Resolved) Chronic hyponatremia (Chronic) Closed head injury (Inactive) Congenital nystagmus Drug-induced lupus erythematosus Emphysema lung (Chronic) Factor V Leiden mutation (Chronic) Gait disturbance, post-stroke (Chronic) Glaucoma (Chronic) Hyperlipidemia (Chronic) Hypertension (Chronic) Mitral regurgitation (Chronic) 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 Unknown Heart disease Hypertension Pulmonary embolism Sister No problems noted. Denies family history of Ovarian cancer Prostate cancer Diabetes Breast cancer Social History Preferred Language: [place] Citizen Communication Ability: Effective Visual Impairment: No Limitations Hearing Ability: Use of Hearing Aid Beliefs That Will Affect Care: None marital status: / Current Living Situation: Alone current occupational status: retired Other Information That Helps Us Care for You: No Feels Safe at Home: Yes Safety Concerns: Feels Safe At This Time Smoking Status: Never smoker Hx Alcohol Use: Yes Alcohol type: beer Alcohol Intake Frequency: Daily Hx Substance Use: No Childhood Exposure to Second-Hand Smoke: Yes caffeine: Yes Dental Care, Regularly: No Physical Activity Frequency: Does not Exercise Seatbelt Use: always Sunscreen Use: Yes Physical Exam Constitutional: well developed and + ill appearing Respiratory: normal respiratory effort Cardiovascular: Rate/Rhythm: regular rate and regular rhythm Gastrointestinal (Abdomen): Percussion/Palpation: abdomen soft fresh incisions Skin: + purpura Results & Data Vital Signs (Past 12 Hours) Vital Signs Temp Pulse Pulse Resp BP Pulse Ox 05/01/20 04:14 36.8 C 80 20 95/62 L 92 05/01/20 00:32 108 H 04/30/20 23:16 37.0 C 91 H 20 116/79 94 04/30/20 19:51 37.6 C H 94 H 20 158/101 H 94 Code Status & VTE Plan VTE Prophylaxis Plan VTE Prophylaxis will be ordered: Yes
--- NOTE | 2020-05-01 07:28 | Anesthesiology Consultation ---
Date of Service May 01, 2020 Assessment & Plan (1) Encounter for pre-operative examination: Chart Review Chart Review: Acceptable Risk for Surgery History Surgery Operation Date: 04/26/20 11:30 Proposed Procedures p Endoscopic Retrograde Cholangiopancreatogram - Arnel B Dominic Operation Date: 04/27/20 09:00 Proposed Procedures p Endoscopic Retrograde Cholangiopancreatogram - Arnel B Dominic Operation Date: 04/28/20 11:10 Proposed Procedures p Laparoscopic Cholecystectomy - Benedicto Petit DO Operation Date: 05/01/20 07:30 Proposed Procedures p Endoscopic Retrograde Cholangiopancreato - Arnel B Dominic Height/Weight Height: 5 ft 5 in Weight: 86.6 kg Allergies Allergy/AdvReac Type Severity Reaction Status Date / Time ketorolac Allergy Unknown . 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 Medications Home Medications Medication Instructions Recorded Confirmed Last Taken apixaban 5 mg tablet 5 mg PO BID #180 tab 05/26/19 04/24/20 04/23/20 cetirizine 10 mg tablet 10 mg PO DAILY tab 07/30/19 04/24/20 04/23/20 cholecalciferol (vitamin D3) 25 1,000 units PO DAILY tab 07/30/19 04/24/20 04/23/20 mcg (1,000 unit) tablet multivitamin 1 tab PO DAILY tab 07/30/19 04/24/20 04/23/20 bimatoprost 0.01 % eye drops 1 drops OP QPM 09/15/19 04/24/20 04/23/20 polyvinyl alcohol 1.4 % eye drops 1 drops OP DAILY 09/15/19 04/24/20 04/23/20 atorvastatin 10 mg PO HS 11/04/19 04/24/20 04/23/20 fluticasone propionate 50 2 sprays INTRANASAL DAILY PRN #48 11/20/19 04/24/20 Unknown mcg/actuation nasal gm spray,suspension magnesium oxide 400 mg (241.3 mg 400 mg PO BID #180 tab 12/02/19 04/24/20 04/23/20 magnesium) tablet tamsulosin 0.4 mg capsule 0.4 mg PO HS #90 cap 12/02/19 04/24/20 04/23/20 tiotropium bromide 18 mcg capsule 18 mcg INHALATION DAILY #90 puffs 12/02/19 04/24/20 04/23/20 with inhalation device omeprazole 10 mg capsule,delayed 20 mg PO BID #360 cap 12/04/19 04/24/20 04/23/20 release emollient 1 appln TOP DAILY gm 12/29/19 04/24/20 04/23/20 mineral oil-hydrophil petrolat 1 appln TOP DAILY gm 12/29/19 04/24/20 04/23/20 triamcinolone acetonide 0.1 % 1 appln TOP DAILY 12/29/19 04/24/20 04/23/20 topical cream metoprolol tartrate 25 mg tablet 25 mg PO DAILY PRN #30 tab 01/13/20 04/24/20 Unknown fluticasone furoate 100 1 puffs INH DAILY #60 ea 03/07/20 04/24/20 04/23/20 mcg-vilanterol 25 mcg/dose inhalation powder lorazepam 0.5 mg tablet 0.5 mg PO .COMPLEX PRN #2 tab 04/14/20 04/24/20 Unknown metoprolol succinate 50 mg PO DAILY 04/24/20 04/24/20 04/23/20 hydrocodone-acetaminophen [[place]] 1 - 2 tab PO .q4-6h PRN #12 tab 04/29/20 Unknown Active Medications Generic Name Dose Route Start Last Admin Trade Name Freq PRN Reason Stop Dose Admin Hydrocodone Bitart/Acetaminophen 1 tab 04/28/20 14:27 04/30/20 04:58 [place] 5/325 PO 05/12/20 14:26 1 tab Q4H PRN Administration Pain Hydrocodone Bitart/Acetaminophen 2 tab 04/28/20 14:27 04/29/20 09:18 [place] 5/325 PO 05/12/20 14:26 2 tab Q4H PRN Administration Pain Artificial Tears 1 drops 04/24/20 09:00 04/30/20 08:49 Artificial Tears OP 05/24/20 08:59 1 drops DAILY NICK Administration Atorvastatin Calcium 10 mg 04/24/20 21:00 04/30/20 20:26 Lipitor PO 05/24/20 20:59 10 mg HS NICK Administration Bimatoprost 1 drops 04/24/20 21:00 04/30/20 20:27 [place] 0.01% OP 05/24/20 20:59 1 drops QPM NICK Administration Cetirizine HCl 10 mg 04/24/20 09:00 04/30/20 08:48 Zyrtec PO 05/24/20 08:59 10 mg DAILY NICK Administration Diclofenac Sodium 2 gm 04/24/20 17:00 04/30/20 20:27 Voltaren 1% Top EXT 05/24/20 16:59 2 gm QID NICK Administration Fluticasone/Vilanterol 1 puffs 04/24/20 09:00 04/30/20 08:50 Breo Ellipta 100/25 Mcg Inh INH 05/24/20 08:59 1 puffs DAILY NICK Administration Ciprofloxacin 400 mg in 200 mls @ 100 mls/hr 04/25/20 14:00 05/01/20 03:55 Cipro IV 05/05/20 13:59 Infused Q12H NICK Infusion Magnesium Oxide 400 mg 04/24/20 09:00 04/30/20 20:26 Mag-Ox PO 05/24/20 08:59 400 mg BID NICK Administration Metoprolol Succinate 50 mg 04/24/20 09:00 04/30/20 08:49 Toprol Xl PO 05/24/20 08:59 50 mg DAILY NICK Administration Morphine Sulfate 4 mg 04/28/20 14:27 04/30/20 16:25 Morphine Sulfate IV 05/12/20 14:26 4 mg Q2H PRN Administration Pain Multivitamins 1 tab 04/24/20 09:00 04/30/20 08:48 Multivitamin Tab PO 05/24/20 08:59 1 tab DAILY NICK Administration Ondansetron HCl 4 mg 04/24/20 09:26 04/30/20 12:49 Zofran IV 05/24/20 09:25 4 mg Q6H PRN Administration Nausea Pantoprazole Sodium 40 mg 04/24/20 09:00 04/30/20 20:26 Protonix PO 05/24/20 08:59 40 mg BID NICK Administration Tamsulosin HCl 0.4 mg 04/24/20 21:00 04/30/20 20:26 Flomax PO 05/24/20 20:59 0.4 mg HS NICK Administration Triamcinolone Acetonide 1 appln 04/24/20 09:00 04/30/20 08:53 Kenalog 0.1% TOP 05/24/20 08:59 1 appln DAILY NICK Administration Umeclidinium [place] 1 puffs 04/24/20 09:00 04/30/20 08:50 Incruse Ellipta INH 05/24/20 08:59 1 puffs DAILY NICK Administration NPO Date Last Intake of Fluids: 04/30/20 Time Last Intake of Fluids: 22:00 Last Intake of Fluids Comment: sips with meds Date Last Intake of Solids: 04/30/20 Time Last Intake of Solids: 18:00 Last Intake of Solids Comment: dinner Past Medical History Medical History Anemia (Chronic) Anticoagulant long-term use (Chronic) 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) Carotid artery plaque (Resolved) Chronic hyponatremia (Chronic) Closed head injury (Inactive) Congenital nystagmus Drug-induced lupus erythematosus Emphysema lung (Chronic) Factor V Leiden mutation (Chronic) Gait disturbance, post-stroke (Chronic) Glaucoma (Chronic) Hyperlipidemia (Chronic) Hypertension (Chronic) Mitral regurgitation (Chronic) 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 Unknown Heart disease Hypertension Pulmonary embolism Sister No problems noted. Denies family history of Ovarian cancer Prostate cancer Diabetes Breast cancer Past Surgical History Surgical History H/O hernia repair H/O prostate biopsy H/O repair of rotator cuff H/O shoulder surgery History of colonoscopy Social History Smoking Status: Never smoker Hx Alcohol Use: Yes Alcohol type: beer alcohol intake frequency: 0-2 drinks per day Hx Substance Use: No Physical Exam Vital Signs Last Vital Signs Temp 36.8 C 05/01/20 04:14 Pulse 80 05/01/20 04:14 Resp 20 05/01/20 04:14 BP 95/62 L 05/01/20 04:14 Pulse Ox 92 05/01/20 04:14 Testing Laboratory Results 04/30/20 07:12 04/30/20 07:12 PT 12.5 Seconds (9.0-12.0) H 04/23/20 23:40 INR 1.2 (0.9-1.1) H 04/23/20 23:40 Urine Color Yellow 04/24/20 03:35 Urine Appearance Clear (Clear) 04/24/20 03:35 Urine pH 8.5 (4.5-7.5) H 04/24/20 03:35 Ur Specific [place] 1.037 (1.000-1.030) H 04/24/20 03:35 Urine Protein Negative (Negative) 04/24/20 03:35 Urine Glucose (UA) Negative (Negative) 04/24/20 03:35 Urine Ketones Negative (Negative) 04/24/20 03:35 Urine Nitrite Negative (Negative) 04/24/20 03:35 Ur Leukocyte Esterase Negative (Negative) 04/24/20 03:35 Electrocardiogram Date: 11/04/19 Findings: + AFIB @ (89) Echocardiogram Date: 04/24/20 EF: 60% LV Function: normal RWMA: + none Valvular Disease: + no significant valvular disease
[2020-05-01 07:37] LABS: Basophils # (auto) 0.01 K/uL (0-0.2); Basophils % (auto) 0.2 %; Eosinophils # (auto) 0.34 K/uL (0-0.5); Eosinophils % (auto) 5.6 %; Hematocrit (blood only) 31.9 % (42-52); Hemoglobin 11.4 g/dL (14.0-18.0); Immature Granulocytes # (auto) 0.04 K/uL (0.00-0.02); Immature Granulocytes % (auto) 0.7 %; Lymphocytes # (auto) 1.71 K/uL (1.2-3.4); Lymphocytes % (auto) 28.3 %; Mean Corpuscular Hemoglobin 35.7 pg (25-34); Mean Corpuscular Hgb Conc 35.7 g/dL (32-36); Mean Platelet Volume 8.3 fL (7.4-10.4); Monocytes # (auto) 0.78 K/uL (0.11-0.59); Monocytes % (auto) 12.9 %; Neutrophils # (auto) 3.17 K/uL (1.4-6.5); Neutrophils % (auto) 52.3 %; Platelet Count 237 K/uL (130-400); RDW Standard Deviation 47.5 fL (36.4-46.3); Red Blood Count 3.19 M/uL (4.7-6.1); White Blood Count 6.05 K/uL (4.8-10.8)
[2020-05-01] MEDS ORDERED: ETOMIDATE 2 MG/ML 20 ML VIAL IV ONE (07:54)
[2020-05-01 07:57] LABS: Albumin Level 2.5 gm/dl (3.4-5.0); BUN Creatinine Ratio 21.5 (10-20); Calcium 8.5 mg/dl (8.5-10.1); Creatinine Clr Calc Pharmacy 71.3 ml/min; Est GFR (African American) 96.1; Est GFR (Non-African American) 82.9; Potassium 4.2 mmol/L (3.5-5.1)
[2020-05-01] MEDS ORDERED: ATROPINE SULFATE 0.1 MG/ML 10ML SYR IV PRN (08:02)
[2020-05-01] MEDS ORDERED: ONDANSETRON INJ 2 MG/ML 2 ML VIAL IV PRN (08:02)
[2020-05-01] MEDS ORDERED: fentaNYL citrate 100 MCG/2 ML VIAL IV PRN (08:02)
[2020-05-01] MEDS ORDERED: LABETALOL HCL IV 5 MG/ML 20ML IV PRN (08:02)
--- NOTE | 2020-05-01 08:11 | GI REPORT ---
Patient Name: Erik Forrest Procedure Date: 05/01/2020 7:25 AM Date of : 1935 Admit Type: Inpatient Age: 84 Gender: Male Attending MD: Arnel Alfaro MD Procedure: ERCP Providers: Arnel Alfaro MD Referring MD: Teresa Wilkins Indications: Elevated liver enzymes Medicines: General Anesthesia Complications: No immediate complications. Estimated Blood Loss: Estimated blood loss: none. Procedure: Pre-Anesthesia Assessment: - Prior to the procedure, a History and Physical was performed, and patient medications, allergies and sensitivities were reviewed. The patient's tolerance of previous anesthesia was reviewed. - The risks and benefits of the procedure and the sedation options and risks were discussed with the patient. All questions were answered and informed consent was obtained. After obtaining informed consent, the scope was passed under direct vision. Throughout the procedure, the patient's blood pressure, pulse, and oxygen saturations were monitored continuously. The Scope was introduced through the mouth, and advanced to the duodenum and used to cannulate the bile duct. The ERCP was accomplished without difficulty. The patient tolerated the procedure well. Findings: The bile duct was deeply cannulated with the short-nosed traction sphincterotome. Contrast was injected. The common bile duct was normal. The biliary tree was swept with an 8.5 mm balloon [Starting point]. Nothing was found. Impression: - The biliary tree was swept. Recommendation: - Return patient to [facility] for ongoing care. Arnel Alfaro M.D. Arnel Alfaro MD 05/01/2020 8:11:25 AM This report has been signed electronically. Note Initiated On: 05/01/2020 7:25 AM Number of Addenda: 0 I attest to the content of the Intraoperative Record and orders documented therein, exceptions below {[id number]}
[2020-05-01 08:22] LABS: Albumin Globulin Ratio 0.9 (0.9-2); Bilirubin,Total 4.6 mg/dl (0.2-1); Globulin 2.9 gm/dl (2.5-4.0); Total Protein 5.4 gm/dl (6.4-8.2)
--- NOTE | 2020-05-01 08:30 | Fluoroscopy Report ---
[place] ERCP biliary ductal CLINICAL HISTORY: ERCP COMPARISON STUDY: 04/27/2020 FLUOROSCOPY TIME: 15 seconds NUMBER OF FLUOROSCOPIC IMAGES: 4 FINDINGS: Image intensifier support for ERCP IMPRESSION: Image intensifier support for ERCP. No major filling defects are appreciated within the l imited images submitted. ACT 112: Negative or not required by law. The above report was generated using voice recognition software. It may contain grammatical, syntax or spelling errors. Electronically signed by: Yash Martinez M.D. 05/01/2020 8:29 AM
--- NOTE | 2020-05-01 08:55 | Progress Notes ---
DATE: 05/01/2020 The patient reports no specific abdominal pain other than his incisional pain. He underwent an ERCP today and followup of his cholecystectomy due to rising bilirubin and alkaline phosphatase. Interestingly, prior to the procedures, bilirubin dropped from 7.1 to 4.6; however, his alkaline phosphatase went from 986 to 1019. ERCP showed a normal post sphincterotomy anatomy and the bile duct was cannulated easily and filled with contrast. There were no obvious filling defects seen throughout the biliary tree. The bile duct was swept twice with an 8.5 mm balloon. The balloon passes through the sphincter easily and there were no stones or sludge recovered. A followup injection was performed to confirm that there were no filling defects or abnormalities of the biliary tree following his cholecystectomy. IMPRESSION: The patient continues to have some mild elevation in his bilirubin, although it is improving. I believe that these liver test abnormalities may be a function of some hepatotoxicity from anesthesia with given his underlying fatty liver and also possibly some toxicity from the acetaminophen that he was taking in excess prior to being hospitalized with some lagging resolution. There is no anatomic abnormality of his biliary tree and the patient is improving, so I would advance his diet and activity and hopefully discharge when he is able with outpatient followup.
[2020-05-01] MEDS ORDERED: CONRAY 60% 50 ML VIAL ONE (08:57)
[2020-05-01] MEDS: UMECLIDINIUM BROMIDE 62.5MCG/BLISTER 7 PUFFS/INHALER INH SCH (09:21)
[2020-05-01] MEDS: FLUTICASONE/VILANTEROL 100/25MCG 14 PUFFS/INHALER INH SCH (09:21)
[2020-05-01] MEDS: ARTIFICIAL TEARS OP SCH (09:22)
[2020-05-01] MEDS: TRIAMCINOLONE ACET 0.1% CR 15 GM TUBE TOP SCH (09:22)
[2020-05-01] MEDS: CETIRIZINE HCL 10 MG TABLET PO SCH (09:22)
[2020-05-01] MEDS: PANTOprazole 40 MG TAB PO SCH ×2 (09:24→20:14)
[2020-05-01] MEDS: MAGNESIUM OXIDE 400 MG TAB PO SCH ×2 (09:24→20:13)
[2020-05-01] MEDS: MULTIVITAMIN TAB PO SCH (09:24)
[2020-05-01] MEDS: METOPROLOL SUCC 50MG EXT REL TAB PO SCH (09:24)
[2020-05-01] MEDS: DICLOFENAC SOD 1% GEL 100 GM TUBE EXT SCH ×4 (09:24→20:12)
--- NOTE | 2020-05-01 09:51 | Anesthesiology Progress Note ---
Date of Service May 01, 2020 Anesthesia Post Procedure Vital Signs Vital Signs: Temp Pulse Pulse Pulse Resp BP Pulse Ox 05/01/20 09:13 36.8 C 89 125/82 94 05/01/20 08:55 36.8 C 84 18 126/75 95 05/01/20 08:45 88 20 136/85 93 05/01/20 08:35 37.4 C 85 16 135/87 96 05/01/20 04:14 36.8 C 80 20 95/62 L 92 05/01/20 00:32 108 H 04/30/20 23:16 37.0 C 91 H 20 116/79 94 04/30/20 19:51 37.6 C H 94 H 20 158/101 H 94 04/30/20 16:00 107 H 04/30/20 15:33 36.8 C 79 14 135/93 94 04/30/20 11:30 36.7 C 95 H 20 122/83 94 Pain Intensity Abdomen: Pain Intensity: 4 Transfer of Care Handoff Completed per policy Notes Mental Status: alert / awake / arousable Patient Amnestic to Procedure: Yes Nausea / Vomiting: adequately controlled Pain: adequately controlled Airway Patency, RR, SpO2: stable & adequate BP & HR: stable & adequate Hydration State: stable & adequate Anesthetic Complications: no major complications apparent
--- NOTE | 2020-05-01 10:52 | Surgery Progress Note ---
Date of Service pt just have ERCP today, pt is doing fine, no abdominal pain, no nausea, no vomiting, May 01, 2020 Assessment & Plan (1) Elevated liver function tests: still high bilirubin, re-consult GI doctor for high bilirubin repeat labs in am, will F/U 05/01/2020, 10 : 51am S/P ERCP, doing fine, clear diet repeat labs in am, will F/U Supervising Physician Co-Signing Physician Notes Resident Physician Supervision Note: I independently interviewed and examined the patient and verified the mcdermott history and physical, reviewed labs and image studies, discussed the case with the resident Dr. Marti and agree with the findings and care plan. Subjective Patient continues to feel well this AM, only having mild abdominal discomfort around surgical site that he says has continued to improve since surgery. Denies nausea or vomiting, or return to worsened abdominal pain overnight. Endorses a bowel movement overnight, which provided continued relief of discomfort and he felt was long over-due given his last bowel movement was before coming to the hospital. Physical Exam Constitutional: WD/WN, vitals as above well developed and well nourished Eyes: PERRL, conjunctivae normal, anicteric sclerae ENMT: external ear and nose normal, oropharynx normal Neck: trachea midline, no thyromegaly Respiratory: normal respiratory effort, lungs clear to auscultation Cardiovascular: RRR, no murmur, no edema Gastrointestinal (Abdomen): Percussion/Palpation: abdomen soft NT, ND, BS + Skin: no rashes, warm and dry Neurologic: awake Psychiatric: Orientation: alert and oriented x 3 Results & Data Vital Signs (Past 12 Hours) Vital Signs Temp Pulse Pulse Pulse Resp BP Pulse Ox 05/01/20 09:13 36.8 C 89 125/82 94 05/01/20 08:55 36.8 C 84 18 126/75 95 05/01/20 08:45 88 20 136/85 93 05/01/20 08:35 37.4 C 85 16 135/87 96 05/01/20 04:14 36.8 C 80 20 95/62 L 92 05/01/20 00:32 108 H 04/30/20 23:16 37.0 C 91 H 20 116/79 94 Laboratory Results Abnormal lab results 05/01/20 05/01/20 Range/Units 07:11 07:11 RBC 3.19 L (4.7-6.1) M/uL Hgb 11.4 L (14.0-18.0) g/dL Hct 31.9 L (42-52) % MCH 35.7 H (25-34) pg RDW Std Deviation 47.5 H (36.4-46.3) fL Immature Gran # (Auto) 0.04 H (0.00-0.02) K/uL [place] # (Auto) 0.78 H (0.11-0.59) K/uL Sodium 125 L (136-145) mmol/L Chloride 92 L (98-107) mmol/L BUN/Creatinine Ratio 21.5 H (10-20) Total Bilirubin 4.6 H (0.2-1) mg/dl AST 143 H (15-37) U/L ALT 181 H (12-78) U/L Alkaline Phosphatase 1019 H (45-117) U/L Total Protein 5.4 L (6.4-8.2) gm/dl Albumin 2.5 L (3.4-5.0) gm/dl
[2020-05-01] MEDS: APIXABAN 5 MG TABLET PO SCH ×2 (11:44→20:12)
--- NOTE | 2020-05-01 12:07 | Hospitalist Progress Note ---
Date of Service May 01, 2020 Assessment & Plan (1) Elevated liver function tests: 84 yo M PMHx Factor V Leiden, HTN, sensorineural hearing loss, emphysema, glaucoma, sensory ataxia/post stroke gait disturbance, AFib, and wet macular degeneration admitted for concern for cholelithiasis / cholecystitis. RUQ Abdominal Pain/Choledocholithiasis: - s/p lap gloria POD#2; relieved of abdominal pain, most discomfort around surgical site but this has continued to improve - AST, ALT, Bilirubin and Alk Phos remain elevated this AM - initial rise thought to be due to patients consumption of acetaminophen in combination with recent anesthesia - repeat ERCP 05/01: demonstrated a clear biliary tree with a normal common bile duct - continue Cipro for total of 10 days - repeat hepatic function test in AM, if stable or downtrending then can discharge home with outpatient follow-up Chronic back pain: - Patient with morphine for abdominal pain as above. - Heating pad ordered. - Reports a recent history of T6 fracture without fall, which could suggest osteoporosis. History of A. fib with factor V Leiden: - restarting home Eliquis regimen - Metoprolol for rate control - Rate well controlled at present Bilateral lower extremity edema: - Worsened since not being able to be on hydrochlorothiazide - Lasix 40 mg IV given once with improvement in LE swelling - Troponin normal. - CXR with no acute process. - TTE 04/24 demonstrated normal LV function, no valvular abnormalities - Appears euvolemic at present - Encouraged MONA compression stockings and ambulation as tolerated. Hyponatremia, mild asymptomatic: - patient has been hyponatremic asymptomatically for past 2 years at least. COPD: - Continue Breo. - Continue Spiriva. Hypertension: - Continue metoprolol as above GERD: - Protonix 20 mg twice daily for formulary. Code Status: FULL CODE DVT PPx: Eliquis 5mg BID Diet: Liquid diet, Advance as tolerated Admission and Anticipated Discharge Date Admission Date: April 24, 2020 Supervising Physician Co-Signing Physician Notes Resident Physician Supervision Note: I independently interviewed and examined the patient and verified the mcdermott history and physical, reviewed labs and image studies, discussed the case with the resident Dr. Marti and agree with the findings and care plan. Subjective Continues to feel well this morning following repeat ERCP, he just wants to be able to go back to eating normal food and go home. Denies nausea, vomiting, abdominal pain. Review of Systems Review of Systems: All systems reviewed & are unremarkable except as noted in Subjective Physical Exam Constitutional: WD/WN, vitals as above Eyes: PERRL, conjunctivae normal, anicteric sclerae Respiratory: normal respiratory effort, lungs clear to auscultation Cardiovascular: Rate/Rhythm: regular rate and regular rhythm Heart Sounds: no gallop, no murmur and no cardiac rub Vessels: no JVD Extremities: no edema Gastrointestinal (Abdomen): normal bowel sounds, soft, nontender, no hepatosplenomegaly Musculoskeletal: no cyanosis or clubbing, extremities motor strength 5/5 Skin: no rashes, warm and dry Psychiatric: A+Ox3, euthymic affect Results & Data Results & Data ([facility]) Vital Signs (Past 12 Hours) Vital Signs Temp Pulse Pulse Pulse Resp BP Pulse Ox 05/01/20 09:13 36.8 C 89 125/82 94 05/01/20 08:55 36.8 C 84 18 126/75 95 05/01/20 08:45 88 20 136/85 93 05/01/20 08:35 37.4 C 85 16 135/87 96 05/01/20 04:14 36.8 C 80 20 95/62 L 92 05/01/20 00:32 108 H Laboratory Results 05/01/20 05/01/20 Range/Units 07:11 07:11 WBC 6.05 (4.8-10.8) K/uL RBC 3.19 L (4.7-6.1) M/uL Hgb 11.4 L (14.0-18.0) g/dL Hct 31.9 L (42-52) % MCV 100.0 (80-100) fL MCH 35.7 H (25-34) pg MCHC 35.7 (32-36) g/dL RDW Std Deviation 47.5 H (36.4-46.3) fL RDW Coeff of Henry 13.0 (11.5-14.5) % Plt Count 237 (130-400) K/uL MPV 8.3 (7.4-10.4) fL Immature Gran % (Auto) 0.7 % Neut % (Auto) 52.3 % Lymph % (Auto) 28.3 % Harrison % (Auto) 12.9 % Eos % (Auto) 5.6 % Baso % (Auto) 0.2 % Immature Gran # (Auto) 0.04 H (0.00-0.02) K/uL Neut # (Auto) 3.17 (1.4-6.5) K/uL Lymph # (Auto) 1.71 (1.2-3.4) K/uL Harrison # (Auto) 0.78 H (0.11-0.59) K/uL Eos # (Auto) 0.34 (0-0.5) K/uL Baso # (Auto) 0.01 (0-0.2) K/uL Sodium 125 L (136-145) mmol/L Potassium 4.2 (3.5-5.1) mmol/L Chloride 92 L (98-107) mmol/L Carbon Dioxide 28 (21-32) mmol/L Anion Gap 6.0 (3-11) BUN 17 (7-18) mg/dl Creatinine 0.78 (0.6-1.4) mg/dl Est Cr Clr Drug Dosing 71.3 ml/min Est GFR ( Amer) 96.1 Est GFR (Non-Af Amer) 82.9 BUN/Creatinine Ratio 21.5 H (10-20) Glucose 82 (70-99) mg/dl Calcium 8.5 (8.5-10.1) mg/dl Total Bilirubin 4.6 H (0.2-1) mg/dl AST 143 H (15-37) U/L ALT 181 H (12-78) U/L Alkaline Phosphatase 1019 H (45-117) U/L Total Protein 5.4 L (6.4-8.2) gm/dl Albumin 2.5 L (3.4-5.0) gm/dl Globulin 2.9 (2.5-4.0) gm/dl Albumin/Globulin Ratio 0.9 (0.9-2) Medications Administered Current Inpatient Medications Hydrocodone Bitart/Acetaminophen ([place] 5/325) 1 tab PO Q4H PRN PRN Reason: Pain Stop: 05/12/20 14:26 Last Admin: 04/30/20 04:58 Dose: 1 tab Documented by: Hydrocodone Bitart/Acetaminophen ([place] 5/325) 2 tab PO Q4H PRN PRN Reason: Pain Stop: 05/12/20 14:26 Last Admin: 04/29/20 09:18 Dose: 2 tab Documented by: Apixaban (Eliquis) 5 mg PO BID NICK Stop: 05/31/20 10:59 Last Admin: 05/01/20 11:44 Dose: 5 mg Documented by: Artificial Tears (Artificial Tears) 1 drops OP DAILY NICK Stop: 05/24/20 08:59 Last Admin: 05/01/20 09:22 Dose: 1 drops Documented by: Atorvastatin Calcium (Lipitor) 10 mg PO HS NICK Stop: 05/24/20 20:59 Last Admin: 04/30/20 20:26 Dose: 10 mg Documented by: Bimatoprost (Lumigan 0.01%) 1 drops OP QPM NICK Stop: 05/24/20 20:59 Last Admin: 04/30/20 20:27 Dose: 1 drops Documented by: Cetirizine HCl (Zyrtec) 10 mg PO DAILY NICK Stop: 05/24/20 08:59 Last Admin: 05/01/20 09:22 Dose: 10 mg Documented by: Diclofenac Sodium (Voltaren 1% Top) 2 gm EXT QID NICK Stop: 05/24/20 16:59 Last Admin: 05/01/20 09:24 Dose: 2 gm Documented by: Fluticasone Propionate (Flonase) 2 sprays NA DAILY PRN PRN Reason: Nasal Congestion Stop: 05/24/20 05:48 Fluticasone/Vilanterol (Breo Ellipta 100/25 Mcg Inh) 1 puffs INH DAILY NICK Stop: 05/24/20 08:59 Last Admin: 05/01/20 09:21 Dose: 1 puffs Documented by: Ciprofloxacin (Cipro) 400 mg in 200 mls @ 100 mls/hr IV Q12H NICK Stop: 05/05/20 13:59 Last Infusion: 05/01/20 03:55 Dose: Infused Documented by: Magnesium Oxide (Mag-Ox) 400 mg PO BID NICK Stop: 05/24/20 08:59 Last Admin: 05/01/20 09:24 Dose: 400 mg Documented by: Metoprolol Succinate (Toprol Xl) 50 mg PO DAILY NICK Stop: 05/24/20 08:59 Last Admin: 05/01/20 09:24 Dose: 50 mg Documented by: Metoprolol Tartrate (Lopressor) 25 mg PO DAILY PRN PRN Reason: tachycardia Stop: 05/24/20 05:48 Miconazole Nitrate (Desenex) 1 appln EXT PRN PRN PRN Reason: Affected Skin Folds Stop: 05/25/20 21:06 Morphine Sulfate (Morphine Sulfate) 2 mg IV Q2H PRN PRN Reason: Pain Stop: 05/12/20 14:26 Morphine Sulfate (Morphine Sulfate) 4 mg IV Q2H PRN PRN Reason: Pain Stop: 05/12/20 14:26 Last Admin: 04/30/20 16:25 Dose: 4 mg Documented by: Multivitamins (Multivitamin Tab) 1 tab PO DAILY NICK Stop: 05/24/20 08:59 Last Admin: 05/01/20 09:24 Dose: 1 tab Documented by: Ondansetron HCl (Zofran) 4 mg IV Q6H PRN PRN Reason: Nausea Stop: 05/24/20 09:25 Last Admin: 04/30/20 12:49 Dose: 4 mg Documented by: Pantoprazole Sodium (Protonix) 40 mg PO BID NICK Stop: 05/24/20 08:59 Last Admin: 05/01/20 09:24 Dose: 40 mg Documented by: Tamsulosin HCl (Flomax) 0.4 mg PO HS NICK Stop: 05/24/20 20:59 Last Admin: 04/30/20 20:26 Dose: 0.4 mg Documented by: Triamcinolone Acetonide (Kenalog 0.1%) 1 appln TOP DAILY NICK Stop: 05/24/20 08:59 Last Admin: 05/01/20 09:22 Dose: 1 appln Documented by: Umeclidinium [place] (Incruse Ellipta) 1 puffs INH DAILY NICK Stop: 05/24/20 08:59 Last Admin: 05/01/20 09:21 Dose: 1 puffs Documented by: Resident Activity Tracking Resident Involvement: Resident Care Provided Care Provided: Adult Hospital Medicine
[2020-05-01] MEDS: ATORVASTATIN 10 MG TAB PO SCH (20:12)
[2020-05-01] MEDS: TAMSULOSIN HCL 0.4 MG CAP PO SCH (20:13)
[2020-05-01] MEDS: BIMATOPROST 0.01% OP SOLN 2.5 ML BTL OP SCH (20:13)
[2020-05-01] MEDS: HYDROCODONE/ACETAMOPHEN 5/325MG TAB PO PRN (20:15)
[2020-05-02] MEDS: CIPROFLOXACIN / D5W 400 MG/200 ML BAG IV SCH (02:43)
[2020-05-02 06:59] LABS: Albumin Level 2.7 gm/dl (3.4-5.0); Bilirubin Direct 1.4 mg/dl (0-0.2); Bilirubin,Total 2.3 mg/dl (0.2-1); Total Protein 5.6 gm/dl (6.4-8.2)
[2020-05-02 07:15] VITALS: TEMP 97.7; O2SAT 95
--- NOTE | 2020-05-02 08:00 | Surgery Progress Note ---
Date of Service May 02, 2020 Assessment & Plan (1) Elevated liver function tests: POD#4 lap gloria, and POD#1 second ERCP Patient underwent repeat ERCP yesterday due to increase in LFTs, per report te biliary tree was swept and was normal Today LFT's are downtrending Tbili: 2.3 (4.6), Dbili: 1.4 (5.7), ALT: 147(181), Alkp: 922 (1019) Pt hungry for more than liquids, will advance to regular diet today Okay for discharge from our standpoint, will leave instructions for follow up in clinic within 1-2 weeks We will sign off, please call if we can be of any further assistance Subjective Patient states he is doing well. Denies any abdominal pain. He is starting to have bowel movements. Tolerating liquid diet, but is wanting to be advanced and is hoping to go home today. Physical Exam Physical Exam: awake/alert Respiratory: normal respiratory effort Gastrointestinal (Abdomen): Inspection/Auscultation: + abdominal surgical incision (c/d/i with dermabond overtop) Percussion/Palpation: abdomen soft; abdomen nontender Results & Data Vital Signs (Past 12 Hours) Vital Signs Temp Pulse Pulse Pulse Resp BP Pulse Ox 05/02/20 07:42 93 H 05/02/20 07:15 36.5 C 88 18 162/90 H 95 05/02/20 04:00 36.7 C 87 20 142/83 H 96 05/02/20 01:00 93 H 05/01/20 23:33 36.6 C 92 H 20 139/76 94 PG Care Time/CCT Total # of Minutes Spent Total Time Spent with Patient: Total time spent is greater than 50% in coordination of care (as documented) at patient's floor/unit and/or counseling patient: Coding Level of Care Code None Diagnoses Elevated liver function tests R79.89
[2020-05-02] MEDS: ARTIFICIAL TEARS OP SCH (08:23)
[2020-05-02] MEDS: FLUTICASONE/VILANTEROL 100/25MCG 14 PUFFS/INHALER INH SCH (08:23)
[2020-05-02] MEDS: UMECLIDINIUM BROMIDE 62.5MCG/BLISTER 7 PUFFS/INHALER INH SCH (08:23)
[2020-05-02] MEDS: DICLOFENAC SOD 1% GEL 100 GM TUBE EXT SCH ×2 (08:24→12:35)
[2020-05-02] MEDS: APIXABAN 5 MG TABLET PO SCH (08:24)
[2020-05-02] MEDS: CETIRIZINE HCL 10 MG TABLET PO SCH (08:24)
[2020-05-02] MEDS: PANTOprazole 40 MG TAB PO SCH (08:24)
[2020-05-02] MEDS: MAGNESIUM OXIDE 400 MG TAB PO SCH (08:24)
[2020-05-02] MEDS: MULTIVITAMIN TAB PO SCH (08:24)
[2020-05-02] MEDS: METOPROLOL SUCC 50MG EXT REL TAB PO SCH (08:24)
[2020-05-02] MEDS: TRIAMCINOLONE ACET 0.1% CR 15 GM TUBE TOP SCH (08:25)
[2020-05-02 11:28] VITALS: BP 129/79
[2020-05-02] MEDS: HYDROCODONE/ACETAMOPHEN 5/325MG TAB PO PRN (13:12)
[2020-05-02 14:36] VITALS: PULSE 87
--- NOTE | 2020-05-02 16:19 | Progress Notes ---
DATE: 05/02/2020 The patient is now postop day 4 for his cholecystectomy and underwent a followup ERCP yesterday morning due to persistently elevated liver tests. His ERCP showed normal post-sphincterotomy findings. The duct was swept twice with the balloon and no stones or sludge were recovered and the 8.5 mm balloon passed through the sphincter easily without much resistance. Today's bilirubin is down to 2.3, direct bilirubin is 1.4, AST 93, ALT 147, alkaline phosphatase is down to 922 from 1019. The patient reports no abdominal pain and is eating a regular diet. He was started back on Eliquis yesterday afternoon. IMPRESSION: The patient is doing well following his cholecystectomy. I suspect that his abnormal liver tests were a combination of anesthesia effect on his fatty liver and acetaminophen toxicity from taking higher than the recommended doses prior to being hospitalized. I suspect that these liver tests should recover back to his normal baseline in 6-8 weeks. These can be followed as an outpatient and the patient is likely to be discharged today.
--- NOTE | 2020-05-02 18:04 | Billing Data ---
Date of Service May 02, 2020 Coding Level of Care Code D/C Day Management <30 mins
--- NOTE | 2020-05-02 20:19 | Discharge Summary ---
Date of Service May 02, 2020 Admission HPI Per Admitting Provider Chief Complaint: Abdominal pain Primary Care Provider: Ayad Lozano MD Erik Forrest is an 84-year-old male with a past medical history of factor V Leiden, hypertension, sensorineural hearing loss, emphysema, glaucoma, sensory ataxia/post stroke gait disturbance, A. fib, and wet macular degeneration who presents with approximately 2 days of increased upper abdominal pain. Patient reports that he has chronic pain due to disc disease and a fall to his ribs over [place], but that his pain was acutely worsened about 2 days ago. His appetite has decreased over this time. He is not sure if food worsens his pain. He endorses abdominal distention. He is also had increased leg swelling in the last 2 days. He denies shortness of breath, chest pain, and chest pressure. He says he has an intermittent cough at baseline due to emphysema but that this has not changed. He denies fever and chills. Denies diarrhea, melena, and bright red blood per rectum. He endorses a history of drug-induced lupus. He was diagnosed on March 25 and it is thought to be secondary to hydrochlorothiazide which caused him to develop a butterfly rash and diffuse body rash last May with acute decrease in his blood pressure to the 80s. He follows with Dr. Tipton for hypertension and A. fib, has discontinued hydrochlorothiazide and now takes metoprolol. He has a family history of multiple of blood clots and a personal history of factor V Leiden for which he is anticoagulated with apixaban. Medical history: Reviewed Surgical history: Reviewed Allergies: Reviewed. Of note HCTZ induced cutaneous lupus. Medications: Reviewed, last taken evening prior to ER visit CODE STATUS: Full code Allergies Admission Exam Per Admitting Provider General: A&Ox3. NAD. Cooperative. HEENT: Atraumatic, normocephalic. Hearing greatly diminished in right ear. Visual acuity grossly intact, patient with decreased acuity at baseline 2/2 macular degeneration. Extraocular movements intact without nystagmus. Pupils equal and responsive to light and accommodation. No facial asymmetry. Pulm: Trace scattered expiratory wheezes. No rales. No rhonchi. Patient appe ars mildly dyspneic (just ambulated from bathroom, baseline per emphysema per patient) but with no acute respiratory distress. Cardiac: Irregularly irregular. Radial pulses intact and symmetrical. Abdominal: Distended, tympanitic. Mild right upper quadrant tenderness to palpation. No rebound tenderness. Nonrigid. Bowel sounds intact. Extremities: Moving all extremities equally. [employer] strength, ankle dorsiflexion/plantar flexion, hip flexion, elbow flexion/extension intact. Patient endorses some neuropathy but with sensation to soft touch intact in fingertips bilaterally. Diffuse cutaneous rash and easy bruising appreciated on upper and lower extremities without tense or localized hematoma. Pitting edema present through the knee bilaterally right worse than left. Principal Diagnosis choledocholithiasis factor five Leiden SNHL COPD - emphysema glaucoma atrial fibrillation Discharge Exam Constitutional WD/WN, vitals as above Eyes PERRL, conjunctivae normal, anicteric sclerae ENMT external ear and nose normal, oropharynx normal Neck normal visual inspection Respiratory normal respiratory effort, lungs clear to auscultation Cardiovascular Rate/Rhythm: + irregularly irregular Heart Sounds: no murmur and no cardiac rub Vessels: no JVD Extremities: no edema Gastrointestinal (Abdomen) normal bowel sounds, soft, nontender, no hepatosplenomegaly well healing surgical scars on abdomen Discharge Data Allergies Allergy/AdvReac Type Severity Reaction Status Date / Time ketorolac Allergy Unknown . 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 Consultations 04/24/20 01:43 ED Decision to Admit Stat 04/24/20 05:49 Consult Gastroenterology Routine 04/24/20 09:19 Consult General Surgery Routine Procedures Performed Operation Date: 04/26/20 11:30 <No data on this case meets the specified criteria> Operation Date: 04/27/20 09:00 Actual Procedures p Endoscopic Retrograde Cholangiopancreatogram(Not Applicable) - Arnel Alfaro Operation Date: 04/28/20 11:10 Actual Procedures p Laparoscopic Cholecystectomy(Not Applicable) - Benedicto Petit DO Operation Date: 05/01/20 07:30 Actual Procedures p Endoscopic Retrograde Cholangiopancreato(Not Applicable) - Arnel Alfaro Ordered Studies 04/23/20 23:49 CT abd pelvis IV con only Urgent 04/24/20 02:55 MR MRCP Urgent 04/27/20 [place] ERCP biliary ductal Routine 05/01/20 [place] ERCP biliary ductal Routine Hospital Course (1) Elevated liver function tests: 84 yo M PMHx Factor V Leiden, HTN, sensorineural hearing loss, emphysema, glaucoma, sensory ataxia/post stroke gait disturbance, AFib, and wet macular degeneration admitted for concern for cholelithiasis / cholecystitis. RUQ Abdominal Pain/Choledocholithiasis: - s/p lap gloria POD#4; relieved of abdominal pain - AST , ALT, Bilirubin and Alk Phos remained elevated but ultimately tended down - discharge labs - AST/ALT - 93/147, total bili - 4.6 and Alk phos. - 922 - initial rise thought to be due to patients consumption of acetaminophen in combination with recent anesthesia - repeat ERCP 05/01: demonstrated a clear biliary tree with a normal common bile duct - repeat hepatic function test on Sunday 05/06 and follow until normalized - patient was tolerating a regular diet prior to discharge Chronic back pain: - Reports a recent history of T6 fracture without fall, which could suggest osteoporosis. History of A. fib with factor V Leiden: - continue home Eliquis - Metoprolol for rate control - Rate well controlled during hospitalization Bilateral lower extremity edema: - Worsened since not being able to be on hydrochlorothiazide - Lasix 40 mg IV given once with improvement in LE swelling - Troponin normal. - CXR with no acute process. - TTE 04/24 demonstrated normal LV function, no valvular abnormalities - Appeared euvolemic at discharge - Encouraged MONA compression stockings and ambulation as tolerated. Hyponatremia, mild asymptomatic: - patient has been hyponatremic asymptomatically for past 2 years at least. COPD: - Continue Breo. - Continue Spiriva. Hypertension: - Continue metoprolol as above GERD: - continue home medications Total Time Total Time Spent Total Time Spent (In Minutes): <30 Discharge Plan Discharge Items Patient Disposition: Home - Self-Care Reason For Visit: ABD PAIN, FLUID OVERLOAD Discharge Diagnosis: laparoscopic cholecystectomy Activity: Per Instructions section Lifting: No more than 10 pounds Bathing Comment: may shower, no soaking in tubs Exercise/Sports: Wait until after follow-up appointment Driving/Machine Use: do not resume driving while taking narcotics for pain Non-emergency contact: Primary Care Provider Call non-emergency contact if: you have any medication questions, your symptoms worsen, your pain is not controlled, you have a fever, your temperature is above 101.5, your wound has increased redness, your wound has increased drainage and your wound pain has increased Follow-up/Referrals: Ayad Lozano MD [Primary Care Provider] - 05/06/20 2:15 pm (Your appointment is with Dr. Lozano's physician teachers' assistant, [facility]. If you need to change this appointment, please call the office.) Benedicto Petit, DO [Surgeon] - (Please call for follow up in the office within 2 weeks) Diet: Regular Addtl Attending Provider Instructions: Gallstones You came in to the hospital with gallstones seen on a CT of your abdomen and pelvis. You had a ERCP, which was done by the [facility] Dr. Alfaro. After this procedure your gallbladder was surgically removed by Dr. Petit. After the procedure you were found to have continued elevated liver enzymes after the procedure, so you were seen again by Dr. Alfaro who performed another ERCP procedure that found that your biliary tree was not obstructed. Since this second procedure your liver enzymes have decreased closer to a normal value. You will need to follow up with your PCP, and have your liver enzymes evaluated ether at the end of this week or the beginning of next to ensure that these labs returns to normal. Your diet has advanced over the hospital course and you can continue to advance your diet as tolerated. You will have follow up with Dr. Petit in 6 weeks. Atrial fibrillation With your history of atrial fibrillation and factor V Leiden you are on Eliquis at home and we stopped this during your hospitalization due to the procedures that were done. You were restarted on SaturdayMay 01. You will continue your home dose of Eliquis. Emphysema You will be continuing your home medications. Lower leg swelling You noted that you were initially having swelling in your lower legs. You had improvement in you swelling when I saw you today. You can continue to use compression socks and walk to help with your lower leg swelling. Post-Surgical ~Discharge Instructions Activity Recommendations: - lifting limitation: (10 pounds for 2 weeks), - exercise/sex/sports limit: (nonstrenuous for 2 weeks), - driving or machine use limit: (none for 1 week), - Shower/bathe limit: (may shower beginning tomorrow) Diet: - Resume previous diet SPECIAL CARE INSTRUCTIONS: - May shower in 24 hours. Let water run over area and pat dry. - Leave steri strips on for one week. - Call the surgeon's office with any questions or concerns - - (ex. temperature higher than 101 degrees F, excessive bleeding or pain). MEDICATIONS: - Resume previous medications unless instructed otherwise by your surgeon. FOLLOW UP VISIT: - If not already scheduled, please call the office to schedule a two week follow-up appointment. Office number Pending Studies at Discharge: No Stand-Alone Forms: My [facility] [employer], Smoking Cessation Medications and DC Order Prescriptions: New hydrocodone-acetaminophen [Steele] 5-325 mg tablet 1 - 2 tab PO .q4-6h PRN (Reason: pain, for initial therapy, max 6 tabs per day) Qty: 12 RF: 0 Continued Eliquis 5 mg tablet 5 mg PO BID Qty: 180 RF: 3 fluticasone propionate 50 mcg/actuation spray,suspension 2 sprays intranasal DAILY PRN (Reason: Nasal Congestion) Qty: 48 RF: 1 magnesium oxide 400 mg (241.3 mg magnesium) tablet 400 mg PO BID Qty: 180 RF: 3 tamsulosin 0.4 mg capsule 0.4 mg PO HS Qty: 90 RF: 3 Spiriva with HandiHaler 18 mcg capsule, w/inhalation device 18 mcg inhalation DAILY Qty: 90 RF: 3 omeprazole 10 mg capsule,delayed release(DR/EC) 20 mg PO BID Qty: 360 RF: 3 metoprolol tartrate 25 mg tablet 25 mg PO DAILY PRN (Reason: tachycardia) Qty: 30 RF: 0 Breo Ellipta 100-25 mcg/dose blister with device 1 puffs INH DAILY Qty: 60 RF: 2 lorazepam 0.5 mg tablet 0.5 mg PO .COMPLEX PRN (Reason: anxiety) Qty: 2 RF: 0 multivitamin tablet 1 tab PO DAILY RF: 0 cetirizine 10 mg tablet 10 mg PO DAILY RF: 0 cholecalciferol (vitamin D3) 1,000 unit (25 mcg) tablet 1,000 units PO DAILY RF: 0 Lumigan 0.01 % drops 1 drops OP QPM RF: 0 polyvinyl alcohol 1.4 % drops 1 drops OP DAILY RF: 0 triamcinolone acetonide 0.1 % cream 1 appln TOP DAILY RF: 0 emollient Cream 1 appln TOP DAILY RF: 0 mineral oil-hydrophil petrolat Ointment 1 appln TOP DAILY RF: 0 atorvastatin 10 mg tablet 10 mg PO HS RF: 0 metoprolol succinate 50 mg tablet extended release 24 hr 50 mg PO DAILY RF: 0 Discharge Orders: Discharge Order (Routine); Ordered 05/02/20 Ordered By: Evert Sommer/Other Patient Handouts: Chronic Lung Disease Starting an Exercise Plan, AFib Admission Data Admit Date/Time: 04/24/20 03:48 Attending Provider: Shankar Irwin Admit Provider: Ayad Headley Primary Care Provider: Ayad Lozano Other Providers: Shankar Irwin ; Danish Koenig ; Arnel Alfaro ; Benedicto Petit ; [place] Other Interventions: Discharge Summary Assessment (RN) Last Done: 05/02/20 14:34 DC Date/Time DO NOT enter until pt leaves facility: 05/02/20 16:13 Supervising Physician Co-Signing Physician Notes I personally examined the patient and verified all mcdermott points of history and exam, discussed case, and agree with decision making with Dr Salazar. feeling better eating OK feels up to going home vitals noted nad heent nc at mmm breathing unlabored no accessory muscles good effort skin no rashes no pallor or icterus choledolcholithiasis, elevated LFTs - now stable for home. f/u LFTs over time as outpt until normalized. otherwise as above Resident Activity Tracking Resident Involvement: Resident Care Provided Care Provided: Adult Hospital Medicine
== END 2020-05-02 16:13 | disposition home or self-care (01) | DRG 418 ==
LOC: ED 23:19 → SUATTDRO 04-24 03:48 → 2N 04-24 03:48

== ENCOUNTER 2023-06-12 11:53 | Inpatient (IN) ==
[2023-06-12] MEDS ORDERED: METOPROLOL TARTRATE 1 MG/ML VIAL IV STA (12:28)
--- NOTE | 2023-06-12 12:55 | XRay Report ---
XR chest 1V portable HISTORY: weakness, swelling COMPARISON: Chest 11/05/2022. FINDINGS: No pneumothorax. No pleural effusions. The heart remains enlarged. There are low lung volum es. Left basilar linear densities persist and favor subsegmental atelectasis or scarring. Otherwise, no new focal lung consolidations to suggest a pneumonia. No evidence for pulmonary edema. Mild chroni c interstitial thickening persists. There is a calcified and tortuous thoracic aorta again noted. Old , healed right-sided rib fractures. Postoperative changes within the right humerus, unchanged. IMPRESSION: 1. No change compared to the prior study. 2. Mild cardiomegaly. 3. Left basilar linear densities persist and favor subsegmental atelectasis or scarring. ACT 112: Negative or not required by law. Electronically signed by: Wlado Fagan M.D. 06/12/2023 12:54 PM
[2023-06-12 13:18] LABS: Basophils # (auto) 0.03 K/uL (0-0.2); Basophils % (auto) 0.4 %; Eosinophils % (auto) 1.3 %; Hematocrit (blood only) 32.6 % (42.0-52.0); Hemoglobin 11.7 g/dl (14.0-18.0); Immature Granulocytes # (auto) 0.03 K/uL (0.01-0.20); Immature Granulocytes % (auto) 0.4 %; Lymphocytes # (auto) 1.67 K/uL (1.2-3.4); Lymphocytes % (auto) 21.5 %; Mean Corpuscular Hemoglobin 35.2 pg (25.0-34.0); Mean Corpuscular Hgb Conc 35.9 g/dL (32.0-36.0); Mean Corpuscular Volume 98.2 fL (80.0-100.0); Mean Platelet Volume 8.5 fL (9.4-12.4); Monocytes # (auto) 0.74 K/uL (0.11-0.59); Monocytes % (auto) 9.5 %; Neutrophils # (auto) 5.19 K/uL (1.40-6.50); Neutrophils % (auto) 66.9 %; Platelet Count 192 K/uL (130-400); RDW Coefficient of Variation 13.6 % (11.5-14.5); RDW Standard Deviation 49.1 fL (36.4-46.3); Red Blood Count 3.32 M/uL (4.70-6.10); White Blood Count 7.76 K/ul (4.8-10.8)
--- NOTE | 2023-06-12 13:22 | Emergency Department Note ---
Impression & Plan Swelling, Cellulitis, Fluid overload, Atrial fibrillation with rapid ventricular response ED Provider Note Provider: Glenn Queen MD DATE OF SERVICE: 06/12/2023 CHIEF COMPLAINT: Swelling, headache HISTORY OF PRESENT ILLNESS: Patient is a 87-year-old gentleman past medical history of permanent atrial fibrillation on Eliquis, balance issues, hypertension, chronic abdominal issues presenting here today evidently the last 2 to 3 days has had increased swelling and some redness to the upper extremities and has some chronic issues with the lower extremities. Blood pressure has been low at home and he skipped some of his medications last night for the last 2 days and did not take his home diuretic. Denies significant shortness of breath. No falls reported. A bit of a headache today 5 out of 10 reported. Has had some weeping from the right lower leg. Did have a skin tear to his r ight distal upper arm a day or 2 ago due to his poor vision and balance issues. Lives at home but support by daughters. Does state compliance with home apixaban PAST MEDICAL HISTORY: As noted above MEDICATIONS: Reviewed home medications but as above some intermittent issues taking them SOCIAL HISTORY: Lives at home PHYSICAL EXAM: GENERAL: alert and oriented in no acute distress on stretcher Head: normocephalic and atraumatic EYES: No injection, discharge or icterus. PERRL, EOMI. NECK: Trachea midline. Supple. ENT: Mucous membranes pink and moist. LUNGS: Airway patent. No retractions. Breath sounds clear some diffuse crackles towards the bases HEART: Irregular regular tachycardic rate and rhythm. No chest wall tenderness ABDOMEN: Soft and non-tender, without guarding or rebound. SKIN: Acyanotic, warm, dry, without rashes EXTREMITIES: Trace swelling of the left lower extremity but 2+ edema of the right lower extremity to the knee with some erythema and chronic scaling and stasis changes noted here. Bilateral upper extremities to the hands to the mid upper arms bilaterally are red and swollen. There is an approximately 1 cm skin tear just proximal to the wrist on the right forearm. Soft compartments bilaterally of the forearms and lower legs. Intact sensation in the hands and feet otherwise. NEUROLOGICAL: No focal deficits. No aphasia. No facial droop or slurred speech. Normal strength and tone in the extremities. Sensation to gross touch normal. Ambulatory. EK bpm atrial fibrillation with rapid ventricular response. No clear acute ST segment elevation due to baseline artifact with a QTc of approximately 401. CONTINUOUS CARDIAC MONITORING: was ordered and showed a heart rate of 80s-120s bpm in atrial fibrillation Patient's laboratory studies and imaging reviewed. Differential includes heart failure, infection, dehydration, metabolic abnormali ty, hypo/hyperglycemia, electrolyte disturbance, anemia, hypoxia, cardiac sources, neurologic, as well as other pathologies. IMPRESSION/MEDICAL DECISION MAKING: No new focal neurological deficits or history of trauma but is on a blood thinner with complaint of 5 out of 10 headache we will complete a CT here. Has some swelling bit asymmetric and lower extremities but swelling of both upper arms. Do concern for fluid overload. Has had some low blood pressures at home and intermittently taking blood pressure medicines and diuretic at home. Did have a new wound to the right upper arm as well as some erythema could represent may be the nidus for some cellulitis. Lots of skin breakdown of the lower leg on the right side noted. On long-term anticoagulation low suspicion for DVT or or PE given this. Denies chest pain. Maybe little bit of nausea earlier but denies current nausea or vomiting. Has some intermittent chronic abdominal issues as detailed in PCPs notes which were reviewed. Benign abdomen on exam however. Chest x-ray reviewed with likely little bit of fluid overload but not significant worse than previous. Not on oxygen supplementation but in A-fib RVR and given a dose of metoprolol here. Negative COVID testing. Blood work without significant leukocytosis and stable mild anemia. Pro calcitonin and blood cultures ordered. Mild hyperkalemia 5.2 with stable renal function and slight hyponatremia 133. Troponin normal. BNP elevated 504. Does go along with some fluid overload. Given her dose of Tylenol and some IV Bumex to help with his fluid overload and headache symptoms. CT head completed without acute findings per radiology. Dose metoprolol has affected decent rate control with heart rate around 100. Blood pressures have been somewhat tenuous in the low 100s. Discussed findings with the patient and his daughter at bedside. Procalcitonin somewhat elevated and covered with ceftriaxone empirically for any skin infection in the extremities from his peeling skin. Discussed with him and the daughter and will ask for observation here. Hospita list to evaluate. DIAGNOSIS: Fluid overload, limb swelling, cellulitis, permanent atrial fibrillation DISPOSITION: Hospitalist will evaluate Patient was agreeable with this plan. 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 Denies family history of Ovarian cancer Prostate cancer Diabetes Breast cancer Colorectal cancer Social History Smoking Status: Former smoker Tobacco Type: Cigarettes Age Started Using Tobacco: 16; Age Quit Using Tobacco: 50; packs per day: 1.5; Second Hand Exposure: No; Do You Dip or Chew Tobacco: No; Hx Alcohol Use: Yes Alcohol type: beer and hard liquor Alcohol Intake Frequency: 4 or More x per/Week Hx Substance Use: No Preferred Language: Mexican Communication Ability: Effective Visual Impairment: Limited Hearing Ability: Use of Hearing Aid Beliefs That Will Affect Care: None marital status: / Current Living Situation: Alone current occupational status: retired How many Children do You have: 3 Feels Safe at Home: Yes Childhood Exposure to Second-Hand Smoke: Yes Diet: regular caffeine: Yes Dental Care, Regularly: No Physical Activity Frequency: Does not Exercise Seatbelt Use: always Sunscreen Use: Yes Do you think of yourself as: straight/heterosexual Assistive Devices: Cane and Glasses Allergies Allergies Allergy/AdvReac Type Severity Reaction Status Date / Time ketorolac Allergy Unknown . 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 Home Meds Home Medications Medication Instructions Recorded Confirmed cetirizine 10 mg tablet 10 mg PO DAILY 07/30/19 06/12/23 cholecalciferol (vitamin D3) 25 1,000 units PO DAILY 07/30/19 06/12/23 mcg (1,000 unit) tablet multivitamin 1 tab PO DAILY 07/30/19 06/12/23 emollient 1 appln topical DAILY 12/29/19 06/12/23 triamcinolone acetonide 0.1 % 1 appln topical DAILY PRN .flare 12/29/19 06/12/23 topical cream ups latanoprost 0.005 % eye drops 1 drp ophthalmic (eye) DAILY 10/13/21 06/12/23 coenzyme Q10 100 mg capsule 100 mg PO DAILY 06/19/22 06/12/23 (CoQ-10) apixaban 5 mg tablet (Eliquis) 5 mg PO BID 06/12/23 06/12/23 atorvastatin 10 mg tablet 10 mg PO DAILY 06/12/23 06/12/23 carvedilol 6.25 mg tablet 6.25 mg PO BID 06/12/23 06/12/23 fluticasone furoate 100 1 inh inhalation QAM 06/12/23 06/12/23 mcg-vilanterol 25 mcg/dose inhalation powder (Breo Ellipta) fluticasone propionate 50 2 spray intranasal DAILY PRN 06/12/23 06/12/23 mcg/actuation nasal allergies spray,suspension omeprazole 10 mg capsule,delayed 20 mg PO BID 06/12/23 06/12/23 release Previous Rx's Medication Instructions Recorded magnesium oxide 400 mg (241.3 mg 400 mg PO BID #180 tabs 12/19/20 magnesium) tablet diclofenac sodium 1 % topical gel 4 g topical QID PRN pain #100 grams 08/15/21 bumetanide 0.5 mg tablet 0.5 mg PO DAILY #30 tabs 07/10/22 metoprolol tartrate 25 mg tablet 25 mg PO DAILY PRN tachycardia #90 07/16/22 tabs alfuzosin 10 mg tablet,extended 10 mg PO DAILY #90 tabs 10/31/22 release 24 hr ondansetron HCl 8 mg tablet 8 mg PO Q8H PRN nausea and 12/24/22 vomiting #30 tabs tiotropium bromide 18 mcg capsule 18 mcg inhalation DAILY #90 04/08/23 with inhalation device (Spiriva inhalations with HandiHaler) amitriptyline 10 mg tablet 10 mg PO HS #90 tabs 05/01/23 Results & Data (ED) Vital Signs Vital Signs - 24 hr 06/12/23 11:54 06/12/23 12:21 06/12/23 12:50 Temperature 36.0 C L Temperature Source Temporal Artery Scan Pulse Rate 59 L 116 H 113 H Respiratory Rate 18 22 Respiratory Effort / Characteristics Non-Labored Spontaneous Respiratory Depth Normal Blood Pressure 123/87 Blood Pressure Mean 99 Pulse Oximetry 100 Oxygen Delivery Method Room Air Sepsis Recent Fever Within 48 Hours No Sepsis New/Unexplained Change in Mental Status No Sepsis Action Taken by Nursing No Action Required 06/12/23 12:49 06/12/23 13:00 06/12/23 13:30 Temperature Temperature Source Pulse Rate 92 H 96 H 113 H Respiratory Rate 17 24 Respiratory Effort / Characteristics Respiratory Depth Blood Pressure 107/56 L 125/69 107/56 L Blood Pressure Mean 87 73 Pulse Oximetry 96 98 Oxygen Delivery Method Room Air Room Air Sepsis Recent Fever Within 48 Hours Sepsis New/Unexplained Change in Mental Status Sepsis Action Taken by Nursing 06/12/23 14:00 06/12/23 14:00 06/12/23 14:30 Temperature Temperature Source Pulse Rate 109 H Respiratory Rate 22 22 Respiratory Effort / Characteristics Respiratory Depth Blood Pressure 131/73 131/73 Blood Pressure Mean 102 92 Pulse Oximetry 98 Oxygen Delivery Method Room Air Sepsis Recent Fever Within 48 Hours Sepsis New/Unexplained Change in Mental Status Sepsis Action Taken by Nursing 06/12/23 14:40 06/12/23 14:50 Temperature Temperature Source Pulse Rate 109 H 104 H Respiratory Rate 17 17 Respiratory Effort / Characteristics Respiratory Depth Blood Pressure Blood Pressure Mean Pulse Oximetry Oxygen Delivery Method Sepsis Recent Fever Within 48 Hours Sepsis New/Unexplained Change in Mental Status Sepsis Action Taken by Nursing Laboratory Data 06/12/23 12:22 06/12/23 12:22 Lab Results 06/12/23 06/12/23 06/12/23 Range/Units 12:22 12:22 12:22 WBC 7.76 (4.8-10.8) K/ul RBC 3.32 L (4.70-6.10) M/uL Hgb 11.7 L (14.0-18.0) g/dl Hct 32.6 L (42.0-52.0) % MCV 98.2 (80.0-100.0) fL MCH 35.2 H (25.0-34.0) pg MCHC 35.9 (32.0-36.0) g/dL RDW Std Deviation 49.1 H (36.4-46.3) fL RDW Coeff of Henry 13.6 (11.5-14.5) % Plt Count 192 (130-400) K/uL MPV 8.5 L (9.4-12.4) fL Immature Gran % (Auto) 0.4 % Neut % (Auto) 66.9 % Lymph % (Auto) 21.5 % [place] % (Auto) 9.5 % Eos % (Auto) 1.3 % Baso % (Auto) 0.4 % Neut # (Auto) 5.19 (1.40-6.50) K/uL Lymph # (Auto) 1.67 (1.2-3.4) K/uL [place] # (Auto) 0.74 H (0.11-0.59) K/uL Eos # (Auto) 0.10 (0-0.50) K/uL Baso # (Auto) 0.03 (0-0.2) K/uL Immature Gran # (Auto) 0.03 (0.01-0.20) K/uL Sodium 133 L (136-145) mmol/L Potassium 5.2 H (3.5-5.1) mmol/L Chloride 95 L (98-107) mmol/L Carbon Dioxide 31 (21-32) mmol/L Anion Gap 7 (3-11) BUN 22 (6-23) mg/dl Creatinine 0.80 (0.6-1.4) mg/dl Est Cr Clr Drug Dosing Not Reportable Est GFR ( Amer) 93.1 ml/min Est GFR (Non-Af Amer) 80.3 ml/min BUN/Creatinine Ratio 27.5 H (10-20) Glucose 92 (70-99(Fasting)) mg/dl Lactate (0.4-2.0) mmol/L Calcium 8.6 (8.6-10.3) mg/dl Magnesium 1.8 (1.7-2.4) mg/dl Total Bilirubin 1.2 H (0.2-1.0) mg/dl AST 26 (13-39) U/L ALT 14 (7-52) U/L Alkaline Phosphatase 97 (34-104) U/L Troponin I High Sens 7.8 (0-20) pg/ml B-Natriuretic Peptide 504 H (0-100) pg/ml Total Protein 6.6 (6.0-8.3) gm/dl Albumin 2.8 L (3.4-5.0) gm/dl Globulin 3.8 (2.5-4.0) gm/dl Albumin/Globulin Ratio 0.7 L (0.9-2) Procalcitonin (0-0.5) ng/ml TSH (0.300-4.500) uIu/ml SARS-CoV-2, RNA, NAAT (NEGATIVE) 06/12/23 06/12/23 06/12/23 Range/Units 12:22 12:22 12:40 WBC (4.8-10.8) K/ul RBC (4.70-6.10) M/uL Hgb (14.0-18.0) g/dl Hct (42.0-52.0) % MCV (80.0-100.0) fL MCH (25.0-34.0) pg MCHC (32.0-36.0) g/dL RDW Std Deviation (36.4-46.3) fL RDW Coeff of Henry (11.5-14.5) % Plt Count (130-400) K/uL MPV (9.4-12.4) fL Immature Gran % (Auto) % Neut % (Auto) % Lymph % (Auto) % [place] % (Auto) % Eos % (Auto) % Baso % (Auto) % Neut # (Auto) (1.40-6.50) K/uL Lymph # (Auto) (1.2-3.4) K/uL [place] # (Auto) (0.11-0.59) K/uL Eos # (Auto) (0-0.50) K/uL Baso # (Auto) (0-0.2) K/uL Immature Gran # (Auto) (0.01-0.20) K/uL Sodium (136-145) mmol/L Potassium (3.5-5.1) mmol/L Chloride (98-107) mmol/L Carbon Dioxide (21-32) mmol/L Anion Gap (3-11) BUN (6-23) mg/dl Creatinine (0.6-1.4) mg/dl Est Cr Clr Drug Dosing Est GFR ( Amer) ml/min Est GFR (Non-Af Amer) ml/min BUN/Creatinine Ratio (10-20) Glucose (70-99(Fasting)) mg/dl Lactate (0.4-2.0) mmol/L Calcium (8.6-10.3) mg/dl Magnesium (1.7-2.4) mg/dl Total Bilirubin (0.2-1.0) mg/dl AST (13-39) U/L ALT (7-52) U/L Alkaline Phosphatase (34-104) U/L Troponin I High Sens (0-20) pg/ml B-Natriuretic Peptide (0-100) pg/ml Total Protein (6.0-8.3) gm/dl Albumin (3.4-5.0) gm/dl Globulin (2.5-4.0) gm/dl Albumin/Globulin Ratio (0.9-2) Procalcitonin 0.87 H (0-0.5) ng/ml TSH 4.325 (0.300-4.500) uIu/ml SARS-CoV-2, RNA, NAAT NEGATIVE (NEGATIVE) 06/12/23 Range/Units 14:49 WBC (4.8-10.8) K/ul RBC (4.70-6.10) M/uL Hgb (14.0-18.0) g/dl Hct (42.0-52.0) % MCV (80.0-100.0) fL MCH (25.0-34.0) pg MCHC (32.0-36.0) g/dL RDW Std Deviation (36.4-46.3) fL RDW Coeff of Henry (11.5-14.5) % Plt Count (130-400) K/uL MPV (9.4-12.4) fL Immature Gran % (Auto) % Neut % (Auto) % Lymph % (Auto) % [place] % (Auto) % Eos % (Auto) % Baso % (Auto) % Neut # (Auto) (1.40-6.50) K/uL Lymph # (Auto) (1.2-3.4) K/uL [place] # (Auto) (0.11-0.59) K/uL Eos # (Auto) (0-0.50) K/uL Baso # (Auto) (0-0.2) K/uL Immature Gran # (Auto) (0.01-0.20) K/uL Sodium (136-145) mmol/L Potassium (3.5-5.1) mmol/L Chloride (98-107) mmol/L Carbon Dioxide (21-32) mmol/L Anion Gap (3-11) BUN (6-23) mg/dl Creatinine (0.6-1.4) mg/dl Est Cr Clr Drug Dosing Est GFR ( Amer) ml/min Est GFR (Non-Af Amer) ml/min BUN/Creatinine Ratio (10-20) Glucose (70-99(Fasting)) mg/dl Lactate 1.8 (0.4-2.0) mmol/L Calcium (8.6-10.3) mg/dl Magnesium (1.7-2.4) mg/dl Total Bilirubin (0.2-1.0) mg/dl AST (13-39) U/L ALT (7-52) U/L Alkaline Phosphatase (34-104) U/L Troponin I High Sens (0-20) pg/ml B-Natriuretic Peptide (0-100) pg/ml Total Protein (6.0-8.3) gm/dl Albumin (3.4-5.0) gm/dl Globulin (2.5-4.0) gm/dl Albumin/Globulin Ratio (0.9-2) Procalcitonin (0-0.5) ng/ml TSH (0.300-4.500) uIu/ml SARS-CoV-2, RNA, NAAT (NEGATIVE) Administered Medications Discontinued Medications Acetaminophen (Acetaminophen 325 Mg Tab) 650 mg PO NOW STA Stop: 06/12/23 13:48 Last Admin: 06/12/23 13:51 Dose: 650 mg Documented By: HEMA Bumetanide 0.5 mg/ Syringe 2 mls @ 4 mls/min IV ONE ONE Stop: 06/12/23 13:48 Last Admin: 06/12/23 14:21 Dose: 4 mls/min Documented By: QGV Ceftriaxone Sodium (Rocephin) 2,000 mg in 70 mls @ 140 mls/hr IV NOW STA Stop: 06/12/23 14:40 Last Infusion: 06/12/23 16:21 Dose: 0 mls/hr Documented By: Admin: 06/12/23 15:46 Dose: 140 mls/hr Documented By: ANG Metoprolol Tartrate (Metoprolol Tartrate 1 Mg/Ml Vial) 5 mg IV NOW STA Stop: 06/12/23 12:29 Last Admin: 06/12/23 12:34 Dose: 5 mg Documented By: ANG Imaging Data Radiologist's Impression: Chest X-Ray 06/12/23 12:27 XR chest 1V portable HISTORY: weakness, swelling COMPARISON: Chest 11/05/2022. FINDINGS: No pneumothorax. No pleural effusions. The heart remains enlarged. There are low lung volumes. Left basilar linear densities persist and favor subsegmental atelectasis or scarring. Otherwise, no new focal lung consolidations to suggest a pneumonia. No evidence for pulmonary edema. Mild chronic interstitial thickening persists. There is a calcified and tortuous thoracic aorta again noted. Old, healed right-sided rib fractures. Postoperative changes within the right humerus, unchanged. IMPRESSION: 1. No change compared to the prior study. 2. Mild cardiomegaly. 3. Left basilar linear densities persist and favor subsegmental atelectasis or scarring. ACT 112: Negative or not required by law. Electronically signed by: Waldo Fagan M.D. 06/12/2023 12:[address] 06/12/23 12:27 CT OF THE HEAD WITHOUT CONTRAST CLINICAL HISTORY: headache on eliquis COMPARISON STUDY: MRI of the brain July 02, 2013. Head CT November 04, 2019. CT DOSE: 625.80 mGy.cm TECHNIQUE: Helical axial images of the head were obtained without IV contrast. Automated exposure control was utilized for the study. A dose lowering technique was utilized adhering to the principles of ALARA. FINDINGS: No acute intracranial hemorrhage, midline shift or mass effect is present. The ventricular system is stable. White matter hypodensity suggests small vessel disease. The basal cisterns are patent. No extra-axial collections are present. There are no findings to suggest acute dural sinus thrombosis or acute territorial infarct. No significant calvarial abnormalities are present. Visualized portions of the sinuses and mastoid air cells are clear. IMPRESSION: No acute intracranial findings. ACT 112: Negative or not required by law. Electronically signed by: David Carroll M.D. 06/12/2023 1:34 PM Discharge Plan Visit Data Chief Complaint: Swelling/Edema to Extremity Stated Complaint: SWELLING, HANDS/ARMS/LEGS, VOMITING ED Provider: Glenn Queen Discharge Problem: Swelling, Cellulitis, Fluid overload, Atrial fibrillation with rapid ventricular response Patient Disposition: Admitted As Inpatient Discharge Instructions Interventions: ED Discharge Assessment Last Done: 06/12/23 16:21
[2023-06-12 13:31] LABS: Alanine Aminotransferase 14 U/L (7-52); Albumin Globulin Ratio 0.7 (0.9-2); Albumin Level 2.8 gm/dl (3.4-5.0); Alkaline Phosphatase 97 U/L (34-104); Anion Gap 7 (3-11); Aspartate Aminotransferase 26 U/L (13-39); BUN Creatinine Ratio 27.5 (10-20); Bilirubin,Total 1.2 mg/dl (0.2-1.0); Blood Urea Nitrogen 22 mg/dl (6-23); Calcium 8.6 mg/dl (8.6-10.3); Carbon Dioxide 31 mmol/L (21-32); Chloride 95 mmol/L (98-107); Est GFR (African American) 93.1 ml/min; Est GFR (Non-African American) 80.3 ml/min; Globulin 3.8 gm/dl (2.5-4.0); Glucose 92 mg/dl (70-99(Fasting)); Magnesium 1.8 mg/dl (1.7-2.4); Potassium 5.2 mmol/L (3.5-5.1); Sodium 133 mmol/L (136-145); Total Protein 6.6 gm/dl (6.0-8.3)
[2023-06-12 13:35] LABS: Troponin I High Sensitivity 7.8 pg/ml (0-20)
--- NOTE | 2023-06-12 13:35 | CT Scan Report ---
CT OF THE HEAD WITHOUT CONTRAST CLINICAL HISTORY: headache on eliquis COMPARISON STUDY: MRI of the brain July 02, 2013. Head CT November 04, 2019. CT DOSE: 625.80 mGy.cm TECHNIQUE: Helical axial images of the head were obtained without IV contrast. Automated exposure con trol was utilized for the study. A dose lowering technique was utilized adhering to the principles o f ALARA. FINDINGS: No acute intracranial hemorrhage, midline shift or mass effect is present. The ventricular system is stable. White matter hypodensity suggests small vessel disease. The basal cisterns are killian nt. No extra-axial collections are present. There are no findings to suggest acute dural sinus thromb osis or acute territorial infarct. No significant calvarial abnormalities are present. Visualized por tions of the sinuses and mastoid air cells are clear. IMPRESSION: No acute intracranial findings. ACT 112: Negative or not required by law. Electronically signed by: David Carroll M.D. 06/12/2023 1:34 PM
[2023-06-12] MEDS ORDERED: BUMETANIDE 0.5 MG in SYRINGE 0 ML IV ONE (13:47)
[2023-06-12] MEDS ORDERED: ACETAMINOPHEN 325 MG TAB PO STA (13:47)
[2023-06-12] MEDS ORDERED: cefTRIAXone SODIUM 2,000 MG/70 ML BAG IV STA (14:11)
--- NOTE | 2023-06-12 14:48 | History & Physical Report ---
Date of Service June 12, 2023 Assessment & Plan (1) Cellulitis: Plan: Acute upper and lower extremity swelling and erythema 2/2 cellulitis, multifactorial with HFpEF as noted No leukocytosis. Procalcitonin is elevated. Right lower extremity is asymmetrically and significantly erythematous, warm, and swollen. Hemoglobin 11.7, stable from prior; MCV 98 Potassium 5.2, creatinine 0.8 with baseline less than 1 Total bilirubin 1.2, stable. No transaminitis BNP 504, no baseline for comparison Procalcitonin is elevated at 0.87 TSH is normal COVID is negative CXR: No change compared to prior. Mild cardiomegaly. Left basilar linear densities favoring atelectasis/scarring. No consolidations. Pulmonary edema is not noted. - 03/2020 TTE: EF 60-65% Continue Rocephin CBC daily HFpEF EF 2019 60 to 65% Patient denies any recent chest pain, chest pressure, shortness of breath. No orthopnea Does have increased swelling in arms and legs bilaterally, has skipped 3 days of Bumex due to borderline pressures which actually improved after Bumex in the ER Suspect HFpEF. Limited echo to reassess wall motion pending BNP is elevated Continue Bumex 0.5 mg IV twice daily Headache No falls CThead: No acute finding Improved by time of bedside assessed Permanent atrial fibrillation Continue Eliquis Continue carvedilol Patient uses metoprolol tartrate daily as needed for symptomatic palpitations. Hold for hypotension Hypertension BB continued to prevent withdrawal, hold for BP less than 100. If held for hypotension, resume once normotensive to prevent reflex tachycardia/A-fib MGUS With associated anemia/leukopenia, chronic Follows with hematology as outpatient Hemoglobin stable Factor V Leiden On chronic Eliquis, he reports he has been compliant with COPD Continue Spiriva AM/Breo HS Chronic abdominal pain/constipation/bloating History of cholecystectomy 2019 Follows with [facility] [place] [facility] Bladder scan every shift/as needed DVT prophylaxis: Anticoagulated Disposition: PCU for IV rate control if needed and volume overload CODE STATUS: Full code, discussed with patient at bedside Diet: Low-salt (2) Swelling: (3) Atrial fibrillation with rapid ventricular response: (4) Atrial fibrillation, permanent: (5) Factor V Leiden mutation: (6) Emphysema lung: History of Present Illness Primary Care Provider: NO PCP Erik Forrest is an 87-year-old male with a past medical history of permanent atrial fibrillation on Eliquis, hypertension, chronic intermittent abdominal discomfort who presented with 2-3 days of upper extremity swelling and slight erythema, headache, and fatigue presents with cellulitis and volume overload Patient has had increased upper and lower extremity swelling. Due to borderline low blood pressures has skipped his Bumex for several days. Blood pressures actually improved in the ER after IV Bumex Shaking this morning, not sure why. Otherwise denies fevers, chills, sweats Does not really watch his salt. Reports has had a reubon las tnight and hasbeen holding bumex No ches tpain no chest pressure no shortness of breath legs more swollen for 'a few days' and R leg a little more red at baseline, but appears much worse today arms bilat swollen and red x2-3 days. Has not had any wheezing or sputum production. Denies cough Denies other new symptoms Medical History: Reviewed Medications: Reviewed Surgical History: Reviewed Family history: Reviewed Allergies: Reviewed Social History: Quit tobacco in 50s. cranberry vodka in evening ~1 drink, up to 3. Code Status: Full Allergies Allergy/AdvReac Type Severity Reaction Status Date / Time ketorolac Allergy Unknown . 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 Home Medications Medication Instructions Recorded Confirmed Type cetirizine 10 mg tablet 10 mg PO DAILY 07/30/19 06/12/23 History cholecalciferol (vitamin D3) 25 1,000 units PO DAILY 07/30/19 06/12/23 History mcg (1,000 unit) tablet multivitamin 1 tab PO DAILY 07/30/19 06/12/23 History emollient 1 appln topical DAILY 12/29/19 06/12/23 History triamcinolone acetonide 0.1 % 1 appln topical DAILY PRN .flare 12/29/19 06/12/23 History topical cream ups magnesium oxide 400 mg (241.3 mg 400 mg PO BID #180 tabs 12/19/20 06/12/23 Rx magnesium) tablet diclofenac sodium 1 % topical gel 4 g topical QID PRN pain #100 grams 08/15/21 06/12/23 Rx latanoprost 0.005 % eye drops 1 drp ophthalmic (eye) DAILY 10/13/21 06/12/23 History coenzyme Q10 100 mg capsule 100 mg PO DAILY 06/19/22 06/12/23 History (CoQ-10) bumetanide 0.5 mg tablet 0.5 mg PO DAILY #30 tabs 07/10/22 06/12/23 Rx metoprolol tartrate 25 mg tablet 25 mg PO DAILY PRN tachycardia #90 07/16/22 06/12/23 Rx tabs alfuzosin 10 mg tablet,extended 10 mg PO DAILY #90 tabs 10/31/22 06/12/23 Rx release 24 hr ondansetron HCl 8 mg tablet 8 mg PO Q8H PRN nausea and 12/24/22 06/12/23 Rx vomiting #30 tabs tiotropium bromide 18 mcg capsule 18 mcg inhalation DAILY #90 04/08/23 06/12/23 Rx with inhalation device (Spiriva inhalations with HandiHaler) amitriptyline 10 mg tablet 10 mg PO HS #90 tabs 05/01/23 06/12/23 Rx apixaban 5 mg tablet (Eliquis) 5 mg PO BID 06/12/23 06/12/23 History atorvastatin 10 mg tablet 10 mg PO DAILY 06/12/23 06/12/23 History carvedilol 6.25 mg tablet 6.25 mg PO BID 06/12/23 06/12/23 History fluticasone furoate 100 1 inh inhalation QAM 06/12/23 06/12/23 History mcg-vilanterol 25 mcg/dose inhalation powder (Breo Ellipta) fluticasone propionate 50 2 spray intranasal DAILY PRN 06/12/23 06/12/23 History mcg/actuation nasal allergies spray,suspension omeprazole 10 mg capsule,delayed 20 mg PO BID 06/12/23 06/12/23 History release Past Med/Surg History Medical History Anemia Anticoagulant long-term use Benign localized hyperplasia of prostate with urinary obstruction Carotid artery plaque Chronic hyponatremia Closed head injury Congenital nystagmus Drug-induced lupus erythematosus Emphysema lung Factor V Leiden mutation Gait disturbance, post-stroke Glaucoma Hyperlipidemia Hypertension Lower extremity edema Lower urinary tract symptoms (LUTS) Mitral regurgitation 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 Denies family history of Ovarian cancer Prostate cancer Diabetes Breast cancer Colorectal cancer Social History Smoking Status: Former smoker Tobacco Type: Cigarettes Age Started Using Tobacco: 16; Age Quit Using Tobacco: 50; packs per day: 1.5; Second Hand Exposure: No; Do You Dip or Chew Tobacco: No; Hx Alcohol Use: Yes Alcohol type: beer and hard liquor Alcohol Intake Frequency: 4 or More x per/Week Hx Substance Use: No Preferred Language: Romanian Communication Ability: Effective Visual Impairment: Limited Hearing Ability: Use of Hearing Aid Beliefs That Will Affect Care: None marital status: / Current Living Situation: Alone current occupational status: retired How many Children do You have: 3 Feels Safe at Home: Yes Childhood Exposure to Second-Hand Smoke: Yes Diet: regular caffeine: Yes Dental Care, Regularly: No Physical Activity Frequency: Does not Exercise Seatbelt Use: always Sunscreen Use: Yes Do you think of yourself as: straight/heterosexual Assistive Devices: Cane and Glasses Review of Systems Review of Systems: All systems reviewed & are unremarkable except as noted in Subjective Physical Exam Physical Exam: General: A&Ox3. NAD. Cooperative. HEENT: Atraumatic, normocephalic. Reduced visual acuity at baseline, vision and hearing are grossly intact Pulm: CTAB A&P. -wheezes, -rales, -rhonchi. Symmetrical chest rise. No increased work of breathing. No respiratory distress. Cardiac: IRiR Radial pulses intact and symmetrical. JVD just above the clavicle is appreciated Abdominal: Nontender, nondistended, soft. BS present. Extremities: Upper extremities with pitting edema 1+ bilaterally. Right lower extremity and left lower extremity with 3+ pitting edema. Right leg is asymmetrically warm, tender, and erythematous with line of demarcation just distal to the knee. Marked with surgical pen. Results & Data Results & Data Vital Signs (Past 12 Hours) Vital Signs Temp Pulse Resp BP Pulse Ox O2 Del Method 06/12/23 13:30 113 H 24 107/56 L 98 Room Air 06/12/23 13:00 96 H 17 125/69 96 Room Air 06/12/23 12:49 92 H 107/56 L 06/12/23 12:50 113 H 22 06/12/23 12:21 116 H 06/12/23 11:54 36.0 C L 59 L 18 123/87 100 Room Air PG Care Time/CCT Total # of Minutes Spent Total Time Spent with Patient: Total time spent is greater than 50% in coordination of care (as documented) at patient's floor/unit and/or counseling patient: Coding Level of Care Code 55013 INT INP/OBS CARE 3/75MIN Diagnoses Cellulitis L03.90 Swelling R60.9 Atrial fibrillation with rapid ventricular response I48.91 Atrial fibrillation, permanent I48.21 Factor V Leiden mutation D68.51 Emphysema lung J43.1 Emphysema type: panlobular (6) Emphysema lung Emphysema type: panlobular Qualified Code(s): J43.1 - Panlobular emphysema
--- NOTE | 2023-06-12 15:14 | Electrocardiogram Report ---
Test Reason : Blood Pressure : / mmHG Vent. Rate : 120 BPM Atrial Rate : 000 BPM P-R Int : 000 ms QRS Dur : 078 ms QT Int : 284 ms P-R-T Axes : 000 026 -39 degrees QTc Int : 401 ms Atrial fibrillation with rapid ventricular response Low voltage QRS Cannot rule out Anteroseptal infarct (cited on or before 04-NOV-2019) Abnormal ECG When compared with ECG of 05-NOV-2022 16:58, No significant change was found Confirmed by Shaun Tipton ([id number]) on 06/12/2023 3:14:34 PM Referred By: Confirmed By:Shaun Tipton
[2023-06-12] MEDS ORDERED: ACETAMINOPHEN 325 MG TAB PO PRN (16:41)
[2023-06-12] MEDS ORDERED: METOPROLOL TARTRATE 1 MG/ML VIAL IV PRN (16:41)
[2023-06-12] MEDS ORDERED: ONDANSETRON INJ 2 MG/ML 2 ML VIAL IV PRN (16:41)
[2023-06-12] MEDS ORDERED: POLYETHYLENE (MIRALAX) 17 GM PACK PO PRN (16:41)
[2023-06-12] MEDS ORDERED: FLUTICASONE PROPIONATE NA SPR 16 GM BTL PRN (16:41)
[2023-06-12 18:03] LABS: Appearance Urine Clear (Clear); Bilirubin Urine Negative (Negative); Blood Urine Negative (Negative); Color Urine Yellow; Glucose Urine UA Negative (Negative); Ketones Urine Negative (Negative); Leukocyte Esterase Urine Negative (Negative); Nitrite Urine Negative (Negative); Protein Urine Negative (Negative); Specific Gravity Urine 1.013 (1.000-1.030); Urobilinogen Urine Negative (Negative); pH Urine >= 9.0 (4.5-7.5)
[2023-06-12] MEDS: MAGNESIUM OXIDE 400 MG TAB PO SCH (20:38)
[2023-06-12] MEDS: carvediloL 6.25 MG TAB PO SCH (20:38)
[2023-06-12] MEDS: PANTOprazole 40 MG TAB PO SCH (20:38)
[2023-06-12] MEDS ORDERED: AMITRIPTYLINE HCL 10 MG TAB PO SCH (21:00)
[2023-06-12] MEDS: APIXABAN 5 MG TABLET PO SCH (21:46)
[2023-06-13 06:35] LABS: Albumin Globulin Ratio 0.8 (0.9-2); Albumin Level 2.2 gm/dl (3.4-5.0); BUN Creatinine Ratio 31.2 (10-20); Bilirubin,Total 0.9 mg/dl (0.2-1.0); Calcium 7.9 mg/dl (8.6-10.3); Creatinine Clr Calc Pharmacy 54.4 ml/min; Est GFR (African American) 94.6 ml/min; Est GFR (Non-African American) 81.6 ml/min; Globulin 2.9 gm/dl (2.5-4.0); Magnesium 1.9 mg/dl (1.7-2.4); Phosphorus 3.6 mg/dl (2.5-4.9); Potassium 3.6 mmol/L (3.5-5.1); Total Protein 5.1 gm/dl (6.0-8.3)
[2023-06-13] MEDS: APIXABAN 5 MG TABLET PO SCH (08:56)
[2023-06-13] MEDS: MAGNESIUM OXIDE 400 MG TAB PO SCH (08:57)
[2023-06-13] MEDS: PANTOprazole 40 MG TAB PO SCH (08:57)
[2023-06-13] MEDS: carvediloL 6.25 MG TAB PO SCH (08:57)
[2023-06-13] MEDS ORDERED: NON-FORMULARY MEDICATION (Alfuzosin 10 mg tablet extended release 24 hr) PO SCH (09:00)
[2023-06-13] MEDS ORDERED: ATORVASTATIN 10 MG TAB PO SCH (09:00)
[2023-06-13] MEDS ORDERED: TAMSULOSIN HCL 0.4 MG CAP PO SCH (09:00)
[2023-06-13] MEDS ORDERED: FLUTICASONE/VILANTEROL 100/25MCG 14 PUFFS/INHALER INH SCH (09:00)
[2023-06-13] MEDS ORDERED: LATANOPROST 0.005% OP SOLN 2.5 ML BTL OP SCH (09:00)
[2023-06-13] MEDS ORDERED: NON-FORMULARY MEDICATION (Coenzyme Q10 [Coq-10] 100 mg capsule) PO SCH (09:00)
[2023-06-13] MEDS ORDERED: BUMETANIDE 0.5 MG in SYRINGE 0 ML IV SCH (09:00)
[2023-06-13] MEDS ORDERED: BUMETANIDE 1 MG TAB PO SCH (09:00)
[2023-06-13] MEDS ORDERED: CETIRIZINE HCL 10 MG TABLET PO SCH (09:00)
[2023-06-13] MEDS ORDERED: UMECLIDINIUM BROMIDE 62.5MCG/BLISTER 7 PUFFS/INHALER INH SCH (09:00)
--- NOTE | 2023-06-13 09:07 | Hospitalist Progress Note ---
Date of Service June 13, 2023 Assessment & Plan (1) Cellulitis: Plan: Acute upper and lower extremity swelling and erythema 2/2 cellulitis, multifactorial with HFpEF as noted No leukocytosis. Procalcitonin is elevated. Right lower extremity is asymmetrically and significantly erythematous, warm, and swollen. Hemoglobin 11.7, stable from prior; MCV 98 Potassium 5.2, creatinine 0.8 with baseline less than 1 Total bilirubin 1.2, stable. No transaminitis BNP 504, no baseline for comparison Procalcitonin is elevated at 0.87 TSH is normal COVID is negative CXR: No change compared to prior. Mild cardiomegaly. Left basilar linear densities favoring atelectasis/scarring. No consolidations. Pulmonary edema is not noted. - 03/2020 TTE: EF 60-65% Continue Rocephin CBC daily HFpEF EF 2019 60 to 65% Patient denies any recent chest pain, chest pressure, shortness of breath. No orthopnea Does have increased swelling in arms and legs bilaterally, has skipped 3 days of Bumex due to borderline pressures which actually improved after Bumex in the ER Suspect HFpEF. Limited echo to reassess wall motion pending BNP is elevated Continue Bumex 0.5 mg IV twice daily Headache No falls CThead: No acute finding Improved by time of bedside assessed Permanent atrial fibrillation Continue Eliquis Continue carvedilol Patient uses metoprolol tartrate daily as needed for symptomatic palpitations. Hold for hypotension Hypertension BB continued to prevent withdrawal, hold for BP less than 100. If held for hypotension, resume once normotensive to prevent reflex tachycardia/A-fib MGUS With associated anemia/leukopenia, chronic Follows with hematology as outpatient Hemoglobin stable Factor V Leiden On chronic Eliquis, he reports he has been compliant with COPD Continue Spiriva AM/Breo HS Chronic abdominal pain/constipation/bloating History of cholecystectomy 2019 Follows with [facility] [place] [facility] Bladder scan every shift/as needed DVT prophylaxis: Anticoagulated Disposition: PCU for IV rate control if needed and volume overload CODE STATUS: Full code, discussed with patient at bedside Diet: Low-salt (2) Swelling: (3) Atrial fibrillation with rapid ventricular response: (4) Atrial fibrillation, permanent: (5) Factor V Leiden mutation: (6) Emphysema lung: Admission and Anticipated Discharge Date Admission Date: June 12, 2023 Subjective Attending: Dr. Nicholson This is an 87-year-old male admitted yesterday for upper and lower extremity swelling and erythema. Procalcitonin was slightly elevated at 0.87. Patient is afebrile. He was started on ceftriaxone 2 g IV daily. This is currently being continued. Patient is typically treated with Bumex but has held this for the last couple of days prior to admission secondary to lower extremity edema. Patient denies any outpatient fever chills or sweats. Review of Systems Review of Systems: A total of 10 systems was reviewed and is negative other than as listed in the HPI Physical Exam Physical Exam: GENERAL : No acute distress EYES: No icterus, gaze conjugate NOSE: No evidence of epistaxis MOUTH: No lesions or candidiasis NECK: Supple LUNGS: CTA B/L, no wheezes, rales or rhonchi HEART: Regular, rate controlled ABDOMEN: Soft, NT, ND, BS Present EXTREMITIES: No LE edema, pedal pulses intact NEURO: A&OX3 Results & Data Results & Data Vital Signs (Past 12 Hours) Vital Signs Temp Pulse Pulse Resp BP 06/13/23 07:18 36.5 C 102 H 20 108/69 06/13/23 02:39 36.6 C 118 H 18 116/78 06/12/23 23:46 87 16 06/12/23 23:20 36.6 C 98 H 18 95/60 L 06/12/23 22:57 99 H Critical Care Results & Data Vital Signs (Past 12 Hours) Vital Signs Temp Pulse Pulse Resp BP 06/13/23 07:18 36.5 C 102 H 20 108/69 06/13/23 02:39 36.6 C 118 H 18 116/78 06/12/23 23:46 87 16 06/12/23 23:20 36.6 C 98 H 18 95/60 L 06/12/23 22:57 99 H Lab & Micro Results (Past 24 Hours) RBC 3.32 M/uL (4.70-6.10) L 06/12/23 WBC 7.76 K/ul (4.8-10.8) 06/12/23 Hgb 11.7 g/dl (14.0-18.0) L 06/12/23 Hct 32.6 % (42.0-52.0) L 06/12/23 MCV 98.2 fL (80.0-100.0) 06/12/23 MCH 35.2 pg (25.0-34.0) H 06/12/23 MCHC 35.9 g/dL (32.0-36.0) 06/12/23 RDW Standard Deviation 49.1 fL (36.4-46.3) H 06/12/23 RDW Coefficient of Variation 13.6 % (11.5-14.5) 06/12/23 Plt Count 192 K/uL (130-400) 06/12/23 MPV 8.5 fL (9.4-12.4) L 06/12/23 Neutrophils (%) (Auto) 66.9 % 06/12/23 Lymphocytes (%) (Auto) 21.5 % 06/12/23 Monocytes # (Auto) 0.74 K/uL (0.11-0.59) H 06/12/23 Eosinophils # (Auto) 0.10 K/uL (0-0.50) 06/12/23 Immature Granulocyte % (Auto) 0.4 % 06/12/23 Neutrophils # (Auto) 5.19 K/uL (1.40-6.50) 06/12/23 Lymphocytes # (Auto) 1.67 K/uL (1.2-3.4) 06/12/23 Monocytes # (Auto) 0.74 K/uL (0.11-0.59) H 06/12/23 Eosinophils # (Auto) 0.10 K/uL (0-0.50) 06/12/23 Basophils # (Auto) 0.03 K/uL (0-0.2) 06/12/23 Immature Granulocyte # (Auto) 0.03 K/uL (0.01-0.20) 3 Na 135 mmol/L (136-145) L 06/13/23 K 3.6 mmol/L (3.5-5.1) 06/13/23 Cl 99 mmol/L (98-107) 06/13/23 CO2 31 mmol/L (21-32) 06/13/23 Anion Gap 5 (3-11) 06/13/23 BUN 24 mg/dl (6-23) H 06/13/23 Creatinine 0.77 mg/dl (0.6-1.4) 06/13/23 Estimated GFR ( Amer) 94.6 ml/min 06/13/23 Estimated GFR (Non-Af Amer) 81.6 ml/min 06/13/23 BUN/Creatinine Ratio 31.2 (10-20) H 06/13/23 Glu 76 mg/dl (70-99(Fasting)) 06/13/23 Ca 7.9 mg/dl (8.6-10.3) L 06/13/23 Phosphorus Level 3.6 mg/dl (2.5-4.9) 06/13/23 Total Bilirubin 0.9 mg/dl (0.2-1.0) 06/13/23 AST 19 U/L (13-39) 06/13/23 ALT 10 U/L (7-52) 06/13/23 Alkaline Phosphatase 75 U/L (34-104) 06/13/23 TP 5.1 gm/dl (6.0-8.3) L 06/13/23 Albumin 2.2 gm/dl (3.4-5.0) L 06/13/23 Globulin 2.9 gm/dl (2.5-4.0) 06/13/23 Albumin/Globulin Ratio 0.8 (0.9-2) L 06/13/23 2 Mg 1.9 mg/dl (1.7-2.4) 06/13/23 05:36 Calcium Level 7.9 mg/dl (8.6-10.3) L 06/13/23 05:36 Diagnostic Findings (Past 24 Hours) Chest X-Ray 06/12/23 12:27 XR chest 1V portable HISTORY: weakness, swelling COMPARISON: Chest 11/05/2022. FINDINGS: No pneumothorax. No pleural effusions. The heart remains enlarged. There are low lung volumes. Left basilar linear densities persist and favor subsegmental atelectasis or scarring. Otherwise, no new focal lung consolidations to suggest a pneumonia. No evidence for pulmonary edema. Mild chronic interstitial thickening persists. There is a calcified and tortuous thoracic aorta again noted. Old, healed right-sided rib fractures. Postoperative changes within the right humerus, unchanged. IMPRESSION: 1. No change compared to the prior study. 2. Mild cardiomegaly. 3. Left basilar linear densities persist and favor subsegmental atelectasis or scarring. ACT 112: Negative or not required by law. Electronically signed by: Waldo Fagan M.D. 06/12/2023 12:[address] 06/12/23 12:27 CT OF THE HEAD WITHOUT CONTRAST CLINICAL HISTORY: headache on eliquis COMPARISON STUDY: MRI of the brain July 02, 2013. Head CT November 04, 2019. CT DOSE: 625.80 mGy.cm TECHNIQUE: Helical axial images of the head were obtained without IV contrast. Automated exposure control was utilized for the study. A dose lowering technique was utilized adhering to the principles of ALARA. FINDINGS: No acute intracranial hemorrhage, midline shift or mass effect is present. The ventricular system is stable. White matter hypodensity suggests small vessel disease. The basal cisterns are patent. No extra-axial collections are present. There are no findings to suggest acute dural sinus thrombosis or acute territorial infarct. No significant calvarial abnormalities are present. Visualized portions of the sinuses and mastoid air cells are clear. IMPRESSION: No acute intracranial findings. ACT 112: Negative or not required by law. Electronically signed by: David Carroll M.D. 06/12/2023 1:34 PM I & O Totals 24 Hours 06/12/23 06/13/23 06/14/23 06:59 06:59 06:59 Intake Total 70 / 70 Output Total 2 / 2 Balance 68 / 68 Cumulative 06/12/23 11:53 thru 06/13/23 06:00 Intake Total 70 Output Total 2 Balance 68 RT Ventilator Mngmt (Last Documented) Ventilator Ordered Settings Respiratory Rate 20 06/13/23 07:18 Ventilator - PT Measurements Respiratory Rate 20 PG Care Time/CCT Total # of Minutes Spent Total Time Spent with Patient: Total time spent is greater than 50% in coordination of care (as documented) at patient's floor/unit and/or counseling patient: Coding Diagnoses Cellulitis L03.90 Swelling R60.9 Atrial fibrillation with rapid ventricular response I48.91 Atrial fibrillation, permanent I48.21 Factor V Leiden mutation D68.51 Emphysema lung J43.1 Emphysema type: panlobular (6) Emphysema lung Emphysema type: panlobular Qualified Code(s): J43.1 - Panlobular emphysema
--- NOTE | 2023-06-13 16:14 | Discharge Summary ---
Date of Service June 13, 2023 Admission HPI Per Admitting Provider Erik Forrest is an 87-year-old male with a past medical history of permanent atrial fibrillation on Eliquis, hypertension, chronic intermittent abdominal discomfort who presented with 2-3 days of upper extremity swelling and slight erythema, headache, and fatigue presents with cellulitis and volume overload Patient has had increased upper and lower extremity swelling. Due to borderline low blood pressures has skipped his Bumex for several days. Blood pressures actually improved in the ER after IV Bumex Shaking this morning, not sure why. Otherwise denies fevers, chills, sweats Does not really watch his salt. Reports has had a reubon las tnight and hasbeen holding bumex No ches tpain no chest pressure no shortness of breath legs more swollen for 'a few days' and R leg a little more red at baseline, but appears much worse today arms bilat swollen and red x2-3 days. Has not had any wheezing or sputum production. Denies cough Denies other new symptoms Medical History: Reviewed Medications: Reviewed Surgical History: Reviewed Family history: Reviewed Allergies: Reviewed Social History: Quit tobacco in 50s. cranberry vodka in evening ~1 drink, up to 3. Code Status: Full Admission Exam Per Admitting Provider Physical Exam: General: A&Ox3. NAD. Cooperative. HEENT: Atraumatic, normocephalic. Reduced visual acuity at baseline, vision and hearing are grossly intact Pulm: CTAB A&P. -wheezes, -rales, -rhonchi. Symmetrical chest rise. No increased work of breathing. No respiratory distress. Cardiac: IRiR Radial pulses intact and symmetrical. JVD just above the clavicle is appreciated Abdominal: Nontender, nondistended, soft. BS present. Extremities: Upper extremities with pitting edema 1+ bilaterally. Right lower extremity and left lower extremity with 3+ pitting edema. Right leg is as ymmetrically warm, tender, and erythematous with line of demarcation just distal to the knee. Marked with surgical pen. Principal Diagnosis Cellulitis Discharge Exam GENERAL : No acute distress EYES: No icterus, gaze conjugate NOSE: No evidence of epistaxis MOUTH: No lesions or candidiasis NECK: Supple LUNGS: CTA B/L, no wheezes, rales or rhonchi HEART: Regular, rate controlled ABDOMEN: Soft, NT, ND, BS Present EXTREMITIES: Patient has edema to both lower extremities as well both upper extremities. there are also some areas of erythema. No open lesions No drainage. No tenderness to touch NEURO: A&OX3 Discharge Data Allergies Allergy/AdvReac Type Severity Reaction Status Date / Time ketorolac Allergy Unknown . 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 Nicholson Patient presented for evaluation to the emergency department for erythema and edema of all 4 extremities. He was admitted for cellulitis and started on antibiotics. Patient had no leukocytosis and no fever the entire admission. Patient's procalcitonin was very mildly elevated at 0.87 (00 0.5). Patient was hemodynamically stable. Overall evaluation the patient did not seem to indicate cellulitis in 4 extremities simultaneously without sepsis. Patient was seen with both daughters in the room. After discussion with Dr. Nicholson, it was agreed that most likely patient may have had a reaction of some sort rather than infection. During the course of this discussion, patient indicated that he had a new cream that he was rubbing on his extremities to help with dryness and itchiness. Patient was advised not to use the cream any longer and to follow-up with his proposal writer Patient was discharged home without further antibiotics and referred back to his primary care physician and proposal writer. Patient and daughter is advised to call or report back to the emergency room should the patient develop any further signs of acute illness (2) Swelling: Unclear etiology. Creatinine and BUN remained stable Suspect localized reaction possibly to topical application cream (3) Atrial fibrillation with rapid ventricular response: Chronic Patient is to continue his anticoagulants with Eliquis 5 mg p.o. twice daily as well as metoprolol tartrate 25 mg p.o. daily (4) Factor V Leiden mutation: Continue Eliquis for anticoagulation (5) Emphysema lung: Patient did well on room air with no hypoxia Outpatient support Total Time Total Time Spent Total Time Spent (In Minutes): 40 Discharge Plan Discharge Items Patient Disposition: Home - Self-Care Reason For Visit: CELLULITIS, HFPEF Discharge Diagnosis: Heart Failure with preserved ejection fraction Activity: Resume your previous activity Lifting: Gradually increase as tolerated Bathing: No limitations Exercise/Sports: Gradually increase as tolerated Weightbearing: Full weightbearing Non-emergency contact: Primary Care Provider Call non-emergency contact if: you have any medication questions and you have a fever Follow-up/Referrals: PCP,NO [Primary Care Provider] - (Patients family will make follow up appointments. ) Diet: Heart Healthy Addtl Attending Provider Instructions: You were admitted for cellulitis due to edema and redness of all 4 extremities. He did receive antibiotics for 2 days. Other indicators such as labs did not indicate that you had a severe infection. Per our discussion, it could have been a localized reaction to the cream that you are using. Discharged with no antibiotics. I agree with you that you should follow-up with your proposal writer. Discontinue creams recently used until reviewed with your proposal writer You are also found to be fluid overloaded. This is most likely due to missing 2 days of diuretics with the Bumex. Weight today was 125 pounds. Please take all diuretics as directed. Please review medications at your cardiology appointment 07/03/[address] Tipton at 1 PM If you develop fever, worsening redness, or other new symptoms, please call your family doctor or report to the emergency department for reevaluation Stand-Alone Forms: [facility] Medications and DC Order Prescriptions: Continued magnesium oxide 400 mg (241.3 mg magnesium) tablet 400 mg PO BID Qty: 180 3RF bumetanide 0.5 mg tablet 0.5 mg PO DAILY Qty: 30 5RF metoprolol tartrate 25 mg tablet 25 mg PO DAILY PRN (Reason: tachycardia) Qty: 90 3RF Spiriva with HandiHaler 18 mcg capsule, w/inhalation device 18 mcg inhalation DAILY Qty: 90 3RF amitriptyline 10 mg tablet 10 mg PO HS Qty: 90 3RF multivitamin tablet 1 tab PO DAILY cetirizine 10 mg tablet 10 mg PO DAILY cholecalciferol (vitamin D3) 1,000 unit (25 mcg) tablet 1,000 units PO DAILY latanoprost 0.005 % drops 1 drp ophthalmic (eye) DAILY ondansetron HCl 8 mg tablet 8 mg PO Q8H PRN (Reason: nausea and vomiting) Qty: 30 2RF emollient Cream 1 appln TOP DAILY alfuzosin 10 mg tablet extended release 24 hr 10 mg PO DAILY Qty: 90 3RF Rx Instructions: administer after the same meal each day coenzyme Q10 [CoQ-10] 100 mg capsule 100 mg PO DAILY carvedilol 6.25 mg tablet 6.25 mg PO BID Rx Instructions: TAKE 1 TABLET TWICE A DAY WITH FOOD atorvastatin 10 mg tablet 10 mg PO DAILY Rx Instructions: TAKE 1 TABLET DAILY fluticasone propionate 50 mcg/actuation spray,suspension 2 spray intranasal DAILY PRN (Reason: allergies) Eliquis 5 mg tablet 5 mg PO BID Rx Instructions: TAKE 1 TABLET TWICE A DAY fluticasone furoate-vilanterol [Breo Ellipta] 100-25 mcg/dose blister with device 1 inh inhalation QAM omeprazole 10 mg capsule,delayed release(DR/EC) 20 mg PO BID Rx Instructions: TAKE 2 CAPSULES (20 MG) TWICE A DAY Held diclofenac sodium 1 % gel 4 g TOP QID PRN (Reason: pain) Qty: 100 3RF Hold Instructions: Please hold this medication until cleared with your proposal writer Rx Instructions: apply to single knee, ankle, foot; for foot includes sole/toes/top of foot triamcinolone acetonide 0.1 % cream 1 appln TOP DAILY PRN (Reason: .flare ups) Hold Instructions: Please hold this medication until cleared by your proposal writer Discharge Orders: Discharge Order (Routine); Ordered 06/13/23 Ordered By: Carlos Brown Admission Data Admit Date/Time: 06/12/23 15:18 Attending Provider: Karlos Nicholson Admit Provider: Ayad Headley Primary Care Provider: PCP,NO Other Providers: Ayad Headley Other Interventions: Discharge Summary Assessment (RN) Last Done: 06/13/23 15:59 Coding Level of Care Code 84731 INP/OBS DISCH >30 MIN Diagnoses Cellulitis L03.90 Swelling R60.9 Atrial fibrillation with rapid ventricular response I48.91 Factor V Leiden mutation D68.51 Emphysema lung J43.1 Emphysema type: panlobular
[2023-06-13] MEDS ORDERED: cefTRIAXone SODIUM 2,000 MG in DEXTROSE 5% 50 ML IV SCH (17:00)
--- NOTE | 2023-06-15 09:54 | Coding Query ---
CONGESTIVE HEART FAILURE To Promote full compliance with coding requirements relating to patient care, physician participation is requested in all cases of leaded glass installer uncertainty. Please assist us with the following questions. A diagnosis of Congestive Heart Failure is documented in the patient's medical record. To accurately code this diagnosis and to compare patient severity, we ask that you specify the type of heart failure by placing an X within the parenthesis (x). SYSTOLIC HEART FAILURE ( ) Acute ( ) Chronic ( ) Acute on Chronic ( ) Rheumatic ( ) Unknown DIASTOLIC HEART FAILURE ( ) Acute ( ) Chronic ( xxx) Acute on Chronic ( ) Rheumatic ( ) Unknown COMBINED SYSTOLIC AND DIASTOLIC HEART FAILURE ( ) Acute ( ) Chronic ( ) Acute on Chronic ( ) Rheumatic ( ) Unknown Was the CHF Present On Admission? Please check the appropriate box: ( ) Present on Admission ( ) Not Present On Admission ( ) Clinically undetermined Thank you Ariella HUMPHREYS
== END 2023-06-13 17:22 | disposition home or self-care (01) | DRG 291 ==
LOC: ED 11:53 → SUATTDRO 15:18 → 2S 15:18